=== PATIENT | female | born 1990 | race Caucasian/White ===

== ENCOUNTER 2017-03-01 14:58 | Inpatient (IN) | payer MEDICAID, OTHER ==
[2017-03-01] MEDS ORDERED: Albuterol-Ipratrop 3 mg / 0.5 (3 ml) UD ONE ×4 (15:06→21:57)
[2017-03-01 15:12] VITALS: BMI 17.9
[2017-03-01] MEDS ORDERED: Sodium Chloride 0.9% 1,000 ML IV ONE (15:24)
[2017-03-01] MEDS ORDERED: Albuterol-Ipratrop 3 mg / 0.5 (3 ml) UD INH STA ×5 (15:25→20:28)
[2017-03-01 15:39] LABS: BASO # 0.1 K/uL (0.0-0.2); BASO % 0.6 % (0.0-2.0); EOS # 1.1 K/uL (0.0-0.7); HEMATOCRIT 50.8 % (34.0-47.0); LYMPH # 1.9 K/uL (1.0-4.3); LYMPH % 19.3 % (20.0-40.0); MEAN CORPUSCULAR HGB CONC 31.1 g/dL (33.0-37.0); MEAN PLATELET VOLUME 9.4 fL (7.2-11.7); MONO # 0.9 K/uL (0.0-0.8); MONO % 9.2 % (0.0-10.0); NRBC % 0.6 % (0.0-2.0); RED CELL DISTRIBUTION WIDTH 19.4 % (11.5-14.5); WHITE BLOOD COUNT 9.6 K/uL (4.8-10.8)
[2017-03-01 15:45] LABS: CHLORIDE 91 mmol/L (98-107); MEAN CELL VOLUME 73.9 fL (81.0-99.0)
[2017-03-01 15:46] LABS: SODIUM 140 mmol/L (132-148)
[2017-03-01 15:47] LABS: POTASSIUM 4.1 mmol/L (3.6-5.2)
[2017-03-01 15:49] LABS: ALKALINE PHOSPHATASE 87 U/L (38-126); AST/SGOT 39 U/L (14-36); BILIRUBIN,TOTAL 0.9 mg/dL (0.2-1.3); BLOOD UREA NITROGEN 11 mg/dL (7-17); CARBON DIOXIDE 38 mmol/L (22-30); GFR AFRICAN-AMERICAN > 60; TOTAL PROTEIN 7.8 g/dL (6.3-8.3)
[2017-03-01 15:50] LABS: ALCOHOL SERUM < 10 mg/dl (0-10); ALT/SGPT 19 U/L (9-52); CALCIUM 8.4 mg/dl (8.6-10.4); GLUCOSE,RANDOM 92 mg/dL (65-105)
--- NOTE | 2017-03-01 16:11 | RAD ---
PROCEDURE: CHEST RADIOGRAPH, 1 VIEW HISTORY: SOB COMPARISON: Comparison made with prior chest radiograph 10/13/2016 left. FINDINGS: LUNGS: Lung morris remaining hyperinflated. Interstitial markings are increased and coarsened, somewhat more so compared to the prior exam. There are a few scattered peribronchial cuffing changes as well. . Findings may represent sequela of reactive/ inflammatory airway disease and or viral illness. Underlying interstitial infiltrates and/or fibrosis the not excluded. PLEURA: No pneumothorax or pleural fluid seen. CARDIOVASCULAR: Heart appears enlarged. OSSEOUS STRUCTURES: No significant abnormalities. VISUALIZED UPPER ABDOMEN: Normal. OTHER FINDINGS: None. IMPRESSION: Lung morris remaining hyperinflated. Interstitial markings are increased and coarsened, somewhat more so compared to the prior exam. There are a few scattered peribronchial cuffing changes as well. . Findings may represent sequela of reactive/ inflammatory airway disease and or viral illness. Underlying interstitial infiltrates and/or fibrosis the not excluded.
[2017-03-01] MEDS ORDERED: Naloxone 0.4 mg/ml Inj (Adult) IV ONE ×3 (16:41→21:46)
--- NOTE | 2017-03-01 16:43 | C.PDOC ---
History Of Present Illness The patient, a 26 y/o female, presents to the ED for evaluation of worsening shortness of breath which began around 3 days ago. Patient denies smoking but states she lives with someone who does. Patient admits to persistent IV heroin abuse, Methadone she buys off the street, and Xanax abuse. Patient has history of multiple hospitalizations and intubations for her asthma. She denies fever, chills, chest pain, cough, nausea, vomiting. Time Seen by Provider: 03/01/17 15:23 Chief Complaint (Nursing): Respiratory Distress History Per: Patient History/Exam Limitations: no limitations Onset/Duration Of Symptoms: Days (3), Worse Since Current Symptoms Are (Timing): Worse Initiating Event: Exposure To Smoke Quality: denies: "Pain" Current Respiratory Medications: See Home Med List Associated Symptoms: denies: Chest Pain, Bloody Cough, Productive Cough Additional History Per: Patient Past Medical History Reviewed: Historical Data, Nursing Documentation, Vital Signs Vital Signs: Last Vital Signs Temp 98.5 F 03/01/17 18:54 Pulse 82 03/01/17 20:00 Resp 12 03/01/17 20:23 BP 113/63 03/01/17 18:54 Pulse Ox 98 03/01/17 20:23 - Medical History PMH: Anxiety, Asthma Denies: Chronic Kidney Disease Surgical History: No Surg Hx - [facility] Procedures CONTINUOUS INVASIVE MECHANICAL VENTILATION <96 CONSEC HRS (12/16/13) DETOXIFICATION SERVICES FOR SUBSTANCE ABUSE TREATMENT (05/31/16) INSERT ENDOTRACHEAL TUBE (12/16/13) OTHER SKIN & SUBQ I D (06/14/13) TETANUS TOXOID ADMINIST (06/14/13) Family History: States: Unknown Family Hx - Social History Hx Tobacco Use: (UNKNOWN) Hx Alcohol Use: No Hx Substance Use: Yes - Immunization History Hx Tetanus Toxoid Vaccination: No Hx Influenza Vaccination: No Hx Pneumococcal Vaccination: No Review Of Systems Except As Marked, All Systems Reviewed And Found Negative. Constitutional: Negative for: Fever, Chills Cardiovascular: Negative for: Chest Pain Respiratory: Positive for: Shortness of Breath. Negative for: Cough Gastrointestinal: Negative for: Nausea, Vomiting Physical Exam - Physical Exam Appears: Non-toxic, No Acute Distress, Other (thin ) Skin: Normal Color, Warm, Dry Head: Atraumatic, Normacephalic, Other (+bitemporal wasting) Eye(s): bilateral: Normal Inspection Oral Mucosa: Moist Neck: Normal ROM, Supple Chest: Symmetrical, No Deformity, No Tenderness Cardiovascular: Rhythm Regular, No Murmur Respiratory: No Rales, No Rhonchi, Wheezing (bilateral inspiratory and expiratory ), Other (+poor air movement ) Gastrointestinal/Abdominal: Soft, No Tenderness, No Guarding, No Rebound Back: Normal Inspection, No Vertebral Tenderness, No Paraspinal Tenderness Extremity: Normal ROM, Capillary Refill (less than 2 seconds ) Neurological/Psych: Oriented x3, Normal Speech, Normal Cognition, Other (+ patient is intermittently hypersomnolent ) Gait: Steady ED Course And Treatment - Laboratory Results Result Diagrams: 03/01/17 15:31 03/01/17 15:31 Lab Interpretation: Abnormal (tox + methadone, benzo, opiates) ECG: Interpreted By Wi ECG Rhythm: Sinus Tachycardia ECG Interpretation: Abnormal Rate From EC O2 Sat by Pulse Oximetry: 100 (on RA) Pulse Ox Interpretation: Normal - Radiology CXR: Interpreted by Me CXR Interpretation: Yes: No Acute Disease Progress Note: labs, EKG, CXR ordered and reviewed. Patient received Duoneb INH , Narcan IV, Pepcid IV, Solu-Medrol IV, and IV Fluids. Reevaluation Time: 16:41 Reassessment Condition: Improved - Physician Consult Information Outcome Of Conversation: 1620: d/w Dr. Zarate- Hospitalist- ok to tele obs. Critical Care Time - Critical Care Note Total Time (in mins): 90 Documented critical care: time excludes all time spent performing seperately billable procedures. Medical Decision Making Medical Decision Making: persistent heroine abuse, IVDA, no local cellulitis with asthma exacerabtion, h/ o multiple intubations. 2000: AB.17/98/341/38/100.3% on 2LNC Bipap and narcan ordered 2230: Re-eval's with Hospitalists and ICU @ bedside.- pt recieved narcan multiple doses and persists hypersomnolent and Hypercarbic decision to upgrade to ICU. Disposition Doctor Will See Patient In The: Hospital Counseled Patient/Family Regarding: Studies Performed, Diagnosis - Disposition Disposition: HOSPITALIZED Disposition Time: 16:43 Condition: FAIR - Clinical Impression Clinical Impression: Asthma with status asthmaticus, Heroin abuse, Benzodiazepine abuse - Scribe Statement The provider has reviewed the documentation as recorded by the Scribe (Clare Young) Provider Attestation: All medical record entries made by the Scribe were at my direction and personally dictated by me. I have reviewed the chart and agree that the record accurately reflects my personal performance of the history, physical exam, medical decision making, and the department course for this patient. I have also personally directed, reviewed, and agree with the discharge instructions and disposition.
[2017-03-01] MEDS ORDERED: Albuterol-Ipratrop 3 mg / 0.5 (3 ml) UD INH PRN (18:39)
--- NOTE | 2017-03-01 18:48 | CP.PCM.HP ---
<Maryam Posadas - Last Filed: 03/01/17 21:29> History of Present Illness - History of Present Illness History of Present Illness: CC: asthma for 2 weeks HPI: 26 year old homeless female with PMHx of asthma and heroin abuse presents to ED with complaints of shortness of breath and wheezing for 2 weeks. Patient reports she ran out of her albuterol inhaler 2 weeks ago and her symptoms have been present since then but they worsened this morning and was brought in by her mother. Patient states she usually uses the albuterol inhaler 5 to 6 times/ day and Advair 4 times a day. She reported beinh short of breath and having a lot of anxiety and she complained of abdominal pain. Patient also reported a history of IV heroin use [6 to 8 bags/day] and the last time she used was the day before admission. She denied any other drug use and reported no longer smoking cigarettes. Patient also reported some RLQ abdominal pain but denied any nausea or vomiting or any bowel/bladder complaints. Patient denied any fever , chills, chest pain, palpitations, cough, back pain, easy bruising, easy bleeding, weight changes, appetite changes. Patient denied any recent travel or sick contacts. PMD: Dr. Arceo PMHx: asthma Meds: albuterol 5-6 times/day and Advair 4 times/day ALL: NKDA but allergic to shrimp PSHx: FamHx: denies history of ME, CVA, cancer in family SocHx: homeless, used to smoke 1/2 ppd from when she was 10yo to 20yo. Patient reports drinking wine "once in a [place]." Patient injects 6 to 8 bags of heroin/day. Patient reports getting money from "disability" Present on Admission - Present on Admission Any Indicators Present on Admission: No Review of Systems - Constitutional Constitutional: As Per HPI. absent: Chills, Fever - EENT Eyes: As Per HPI. absent: Change in Vision Ears: As Per HPI. absent: Dizziness Nose/Mouth/Throat: As Per HPI. absent: Sore Throat - Cardiovascular Cardiovascular: As Per HPI. absent: Chest Pain, Edema, Palpitations - Respiratory Respiratory: As Per HPI, Dyspnea on Exertion, Wheezing. absent: Cough, Chest Congestion - Gastrointestinal Gastrointestinal: As Per HPI, Abdominal Pain (R sided). absent: Constipation, Diarrhea, Nausea, Vomiting - Genitourinary Genitourinary: As Per HPI. absent: Dysuria, Hematuria, Pyuria - Musculoskeletal Musculoskeletal: As Per HPI. absent: Back Pain, Numbness, Tingling - Integumentary Integumentary: As Per HPI. absent: Dry Skin, Rash - Neurological Neurological: As Per HPI. absent: Tingling, Weakness - Psychiatric Psychiatric: As Per HPI, Anxiety - Endocrine Endocrine: As Per HPI. absent: Polydipsia, Polyuria - Hematologic/Lymphatic Hematologic: As Per HPI. absent: Easy Bleeding, Easy Bruising Past Patient History - Past Medical History & Family History Past Medical History?: Yes - Past Social History Smoking Status: Former Smoker - CARDIAC Hx Cardiac Disorders: No - PULMONARY Hx Asthma: Yes - NEUROLOGICAL Hx Neurological Disorder: No - HEENT Hx HEENT Problems: No - RENAL Hx Chronic Kidney Disease: No - ENDOCRINE/METABOLIC Hx Endocrine Disorders: No - HEMATOLOGICAL/ONCOLOGICAL Hx Blood Disorders: No - INTEGUMENTARY Hx Dermatological Problems: No - MUSCULOSKELETAL/RHEUMATOLOGICAL Hx Falls: No - GASTROINTESTINAL Hx Gastrointestinal Disorders: No - GENITOURINARY/GYNECOLOGICAL Hx Genitourinary Disorders: No - PSYCHIATRIC Hx Anxiety: Yes Hx Substance Use: Yes - SURGICAL HISTORY Hx Surgeries: Yes Hx Section: Yes (X2) - ANESTHESIA Hx Anesthesia: Yes Hx Anesthesia Reactions: No Hx Malignant Hyperthermia: No Meds Allergies/Adverse Reactions: Allergies Allergy/AdvReac Type Severity Reaction Status Date / Time shrimp Allergy Severe ITCHING Verified 10/13/16 18:35 Physical Exam - Constitutional Appears: Non-toxic, No Acute Distress, Chronically Ill - Head Exam Head Exam: NORMAL INSPECTION - Eye Exam Eye Exam: Normal appearance. absent: Conjunctival injection, Scleral icterus Pupil Exam: Miosis - ENT Exam ENT Exam: Mucous Membranes Dry - Neck Exam Neck exam: Positive for: Normal Inspection - Respiratory Exam Respiratory Exam: Rhonchi, Wheezes, NORMAL BREATHING PATTERN. absent: Accessory Muscle Use, Clear to Auscultation Bilateral, Rales, Respiratory Distress Additional comments: poor air movement - Cardiovascular Exam Cardiovascular Exam: Tachycardia, REGULAR RHYTHM, +S1, +S2. absent: Systolic Murmur - GI/Abdominal Exam GI & Abdominal Exam: Normal Bowel Sounds, Soft, Tenderness (RUQ and RLQ slight tenderness to palpation). absent: Firm, Guarding, Rigid - Extremities Exam Extremities exam: Positive for: normal inspection, pedal pulses present. Negative for: pedal edema, tenderness - Back Exam Back exam: NORMAL INSPECTION. absent: rash noted - Neurological Exam Neurological exam: Alert, Oriented x3 - Psychiatric Exam Psychiatric exam: Normal Affect, Normal Mood - Skin Skin Exam: Dry, Erythema (b/l RUE), Warm Results - Vital Signs Recent Vital Signs: Last Vital Signs Temp 99.1 F 03/01/17 15:15 Pulse 111 H 03/01/17 16:19 Resp 20 03/01/17 16:19 BP 112/73 03/01/17 16:19 Pulse Ox 100 03/01/17 18:26 - Labs Result Diagrams: 03/01/17 15:31 03/01/17 15:31 Assessment & Plan - Assessment and Plan (Free Text) Assessment: 26 yo homeless female with PMHx of asthma and heroin abuse presents to ED with complains of shortness of breath and wheezing for 2 weeks Plan: Acute asthma exacerbation f/u AM labs CXR 03/01: lung fileds remaining hyperinflated. Interstitial markings are increased and coarsened, somewhat more so compared to the prior exam. Few scattered peribronchial cuffing changes as well. Findings may represent sequela of reactive/inflammatory airway disease and or viral illness. Underlying interstitial infiltrates and/or fibrosis not excluded. Duoneb 3ml INH Q6 PRN Solumedrol 40mg IVP Q8H Singulair 10mg PO HS Heroin withdrawal Methadone 10mg PO PRN for agitation- one time f/u UDS Psych consult Dr. Lord- f/u recommendations Bilateral RUE cellulitis Zosyn 3.375gm IV Q6H Vancomycin 1gm IVPB daily Monitor area PPX Lovenox 30mg SC daily Pepcid 20mg PO BID NS @ 75cc/hr SCD Clear liquid diet Plan discussed with Dr. Jerson Posadas PGY1 <Brissa Arthur V - Last Filed: 03/03/17 13:38> Results - Vital Signs Recent Vital Signs: Last Vital Signs Temp 97.9 F 03/03/17 12:00 Pulse 91 H 03/03/17 11:02 Resp 22 03/03/17 13:04 BP 129/88 03/03/17 11:02 Pulse Ox 91 L 03/03/17 11:02 - Labs Result Diagrams: 03/02/17 06:21 04/15/17 06:21 Labs: Laboratory Results - last 24 hr 03/03/17 06:27 Vancomycin Trough 11.8 H Attending/Attestation - Attestation I have personally seen and examined this patient.: Yes I have fully participated in the care of the patient.: Yes I have reviewed all pertinent clinical information: Yes Notes (Text): This is late computer entry for 03/01/17. Patient seen, examined, and case discussed with day-time resident. Patient seen at approximately 5pm on 03/01/17. Discussed initial admitting orders with day-time resident. Patient has a history of mild-moderate asthma, requiring short acting inhaler multiple times a day and in addition has history of heroin abuse (reporting about 6-8 bags) and then discussed with ED physician that she takes about 20 bags a day of heroin. Patient has no family at bedside but reports her family knows she is her. Assessment/Plan 1) Acute asthma exacerbation * CXR 03/01: lung fileds remaining hyperinflated. Interstitial markings are increased and coarsened, somewhat more so compared to the prior exam. Few scattered peribronchial cuffing changes as well. Findings may represent sequela of reactive/inflammatory airway disease and or viral illness. Underlying interstitial infiltrates and/or fibrosis not excluded. * Duoneb 3ml INH Q6 PRN * Solumedrol 40mg IVP Q8H * Singulair 10mg PO HS * Patient is tight on exam; with associated rales and rhonchi. 2) Heroin withdrawal * Methadone 10mg PO PRN for agitation- one time * f/u UDS * Psych consult Dr. Lord- f/u recommendations; discussed with psych who are aware of consult will see in the morning 3) Bilateral RUE cellulitis * at the injection sites; very erythematous; demarcated * Zosyn 3.375gm IV Q6H (active since 03/01/17) * Vancomycin 1gm IVPB daily (active since 03/01/17) * Monitor area 4) PPX * Lovenox 30mg SC daily * Pepcid 20mg PO BID * NS @ 75cc/hr * SCD * Clear liquid diet Requested ICU evaluation given ABG result which resulted post my initial assessment of the patient of acidosis and CO2 retention. Patient appears drowsy , lethargic, unable to communicate properly due to multiple drugs in her system including heroin, xanax, and methadone change from my initial assessment. Patient went to the ICU unit for further monitoring and possible intubation given acidosis and CO2 retention.
[2017-03-01 19:53] LABS: ABG ALLEN TEST POS; DRAW SITE RRADIAL
[2017-03-01 19:55] LABS: RBC URINE 1 /hpf (0-3); URINE BACTERIA RARE (<OCC); URINE BILIRUBIN NEGATIVE (NEGATIVE); URINE BLOOD NEGATIVE (NEGATIVE); URINE COLOR Yellow (YELLOW); URINE GLUCOSE (UA) NORMAL (Normal); URINE KETONE NEGATIVE (NEGATIVE); URINE LEUKOCYTE ESTERASE TRACE Leu/uL (Negative); URINE PROTEIN NEGATIVE (NEGATIVE); WBC URINE 12 /hpf (0-5)
[2017-03-01] MEDS ORDERED: Fluticasone-Salmeterol 250-50mcg Diskus INH SCH (20:00)
[2017-03-01] MEDS ORDERED: Piperacillin/Tazobact 3.375 gm 100 ML IVPB ONE (20:47)
[2017-03-01] MEDS: Piperacill/Tazo 3.375gm in Dex 50 ML IVPB SCH (20:53)
[2017-03-01] MEDS: MethylPREDNISolone 40 mg Vial IVP SCH (21:07)
[2017-03-01] MEDS ORDERED: Naloxone 0.4 mg/ml Inj (Adult) ONE (21:59)
[2017-03-01 22:30] LABS: ABG ALLEN TEST POS; DRAW SITE RRADIAL
[2017-03-01] MEDS ORDERED: Naloxone 0.4 mg/ml Inj (Adult) IVP PRN (23:03)
--- NOTE | 2017-03-01 23:11 | CP.PCM.CON ---
History of Present Illness - History of Present Illness History of Present Illness: Patient seen and examined in ER as per request of Dr. Arthur. History obtained from the chart since the patient is not able to verbalize, but nods and follows commands. This is a 16 year old female with history of asthma, heroin, methadone and benzodiazepine abuse. She comes to the ER with sob and wheezing for 2 weeks, urine toxicology exam positive for benzodiazepines, methadone and opiates. She has lots of ronchi and wheezing on expiration, tachypneic, but nods to feel better than before and not being sob, as per ER nursing staff she looks much better. She was just taken off bpap since she "vomited one grape". ros: limitted PMH: asthma FH: not relevant for the case social: homeless multiple drug abuse smoked 1/2 pack from [age] years old Allergic to shrimp pe: bp 113/83 mmhg, hr 93 bpm, rr 26 bpm, T 97.9, O2 100% on 3 L NC thin young female looks in mild respiratory distress alert, awake, aware of surroundings, follows commands s1, s2 rrr lungs bilateral diffuse loud ronchi and wheeze abomen soft, non tender able to move all extremities right forearm with area of redness and warmth, also in posterior aspect of left hand - marked unable to write or word out secondary to be under the influence of drugs a/p: Asthma exacerbation: IV steroids, nebulizations, oxygen Respiratory failure due to asthma exacerbation bpap prn CO2 narcosis: secondary to drug abuse, monitor closely in ICU, narcan prn Cellulitis: at the site of IV injection, on vancomycin and zosyn, adjusted for renal function Drug abuse: give xanax daily, start tomorrow to avoid seizure withdrawal, 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 Past Patient History - Past Medical History & Family History Past Medical History?: Yes - Past Social History Smoking Status: Former Smoker - CARDIAC Hx Cardiac Disorders: No - PULMONARY Hx Asthma: Yes - NEUROLOGICAL Hx Neurological Disorder: No - HEENT Hx HEENT Problems: No - RENAL Hx Chronic Kidney Disease: No - ENDOCRINE/METABOLIC Hx Endocrine Disorders: No - HEMATOLOGICAL/ONCOLOGICAL Hx Blood Disorders: No - INTEGUMENTARY Hx Dermatological Problems: No - MUSCULOSKELETAL/RHEUMATOLOGICAL Hx Falls: No - GASTROINTESTINAL Hx Gastrointestinal Disorders: No - GENITOURINARY/GYNECOLOGICAL Hx Genitourinary Disorders: No - PSYCHIATRIC Hx Anxiety: Yes Hx Substance Use: Yes - SURGICAL HISTORY Hx Surgeries: Yes Hx Section: Yes (X2) - ANESTHESIA Hx Anesthesia: Yes Hx Anesthesia Reactions: No Hx Malignant Hyperthermia: No Meds Allergies/Adverse Reactions: Allergies Allergy/AdvReac Type Severity Reaction Status Date / Time shrimp Allergy Severe ITCHING Verified 10/13/16 18:35 - Medications Medications: Current Medications Albuterol/Ipratropium (Duoneb 3 Mg/0.5 Mg (3 Ml) Ud) 3 ml INH RQ6 [facility] Enoxaparin Sodium (Lovenox) 40 mg SC DAILY [facility] Famotidine (Pepcid) 20 mg PO BID [facility] Sodium Chloride (Sodium Chloride 0.9%) 1,000 mls @ 75 mls/hr IV .[id number] [facility] Piperacillin Sod/Tazobactam Sod (Zosyn 3.375 Gm Iv Premix) 50 mls @ 100 mls/hr IVPB Q6H [facility] Last Admin: 03/01/17 20:53 Dose: 100 mls/hr Vancomycin HCl 1 gm/ Sodium (Chloride) 250 mls @ 166.7 mls/hr IVPB Q24H [facility] Last Admin: 03/01/17 21:06 Dose: 166.7 mls/hr Methylprednisolone (Solu-Medrol) 40 mg IVP Q8H [facility] Last Admin: 03/01/17 21:07 Dose: 40 mg Montelukast Sodium (Singulair) 10 mg PO HS [facility] Naloxone HCl (Narcan) 0.4 mg IVP Q15M PRN PRN Reason: Other Results - Vital Signs Recent Vital Signs: Last Vital Signs Temp 98.5 F 03/01/17 18:54 Pulse 82 03/01/17 20:00 Resp 12 03/01/17 20:23 BP 113/63 03/01/17 18:54 Pulse Ox 98 03/01/17 20:23 - Labs Result Diagrams: 03/01/17 15:31 03/01/17 15:31 Labs: Laboratory Results - last 24 hr 03/01/17 03/01/17 03/01/17 19:38 19:39 22:25 Puncture Site Rradial Rradial pCO2 98 H* 62 H pO2 341 H 62 L HCO3 28.0 28.5 H ABG pH 7.17 L* 7.33 L ABG Total CO2 38.7 H 34.6 H ABG O2 Saturation 100.3 H 92.6 L ABG Base Excess 3.8 H 4.9 H Clive Test Pos Pos ABG Potassium 3.8 3.7 A-a O2 Difference 250.0 60.0 Respiratory Index 0.7 1.0 Sodium 139.0 138.0 Chloride 105.0 104.0 Glucose 143 H 114 H Lactate 1.2 1.8 FiO2 100.0 28.0 Crit Value Called To Dr. martin Crit Value Called By Quynh harman rcp Crit Value Read Back Y Blood Gas Notified Time 1952 Arterial Blood Potassium 3.8 3.7 Urine Color Yellow Urine Clarity Hazy Urine pH 6.0 Ur Specific [place] 1.017 Urine Protein Negative Urine Glucose (UA) Normal Urine Ketones Negative Urine Blood Negative Urine Nitrate Negative Urine Bilirubin Negative Urine Urobilinogen 2.0 H Ur Leukocyte Esterase Trace Urine WBC (Auto) 12 H Urine RBC (Auto) 1 Ur Squamous Epith Cells 4 Urine Bacteria Rare Urine HCG, Qual Negative Urine Opiates Screen Positive Urine Methadone Screen Positive Ur Barbiturates Screen Negative Ur Phencyclidine Scrn Negative Ur Amphetamines Screen Negative U Benzodiazepines Scrn Positive U Oth Cocaine Metabols Negative U Cannabinoids Screen Negative
[2017-03-02] MEDS: Sodium Chloride 0.9% 1,000 ML IV SCH ×2 (00:15→13:39)
[2017-03-02] MEDS: Piperacill/Tazo 3.375gm in Dex 50 ML IVPB SCH ×4 (01:20→18:12)
[2017-03-02] MEDS: Naloxone 0.4 mg/ml Inj (Adult) IVP PRN ×3 (01:25→06:00)
[2017-03-02] MEDS: Albuterol-Ipratrop 3 mg / 0.5 (3 ml) UD INH SCH ×4 (01:27→19:47)
[2017-03-02] MEDS: MethylPREDNISolone 40 mg Vial IVP SCH ×3 (03:35→18:12)
[2017-03-02 04:35] LABS: ABG ALLEN TEST POS; CARBOXYHEMOGLOBIN 2.1 % (0.5-1.5); DRAW SITE RR; HHB 2.9 % (0.0-5.0)
[2017-03-02 06:33] LABS: BASO % 0.2 % (0.0-2.0); LYMPH # 0.5 K/uL (1.0-4.3); LYMPH % 9.3 % (20.0-40.0); MEAN CELL VOLUME 74.3 fL (81.0-99.0); MEAN CORPUSCULAR HEMOGLOBIN 23.5 pg (27.0-31.0); MEAN CORPUSCULAR HGB CONC 31.6 g/dL (33.0-37.0); MEAN PLATELET VOLUME 9.3 fL (7.2-11.7); MONO # 0.1 K/uL (0.0-0.8); MONO % 2.4 % (0.0-10.0); NRBC % 0.1 % (0.0-2.0); PLATELET COUNT 212 K/uL (130-400); RED CELL DISTRIBUTION WIDTH 19.7 % (11.5-14.5); WHITE BLOOD COUNT 4.9 K/uL (4.8-10.8)
[2017-03-02 06:40] LABS: CHLORIDE 97 mmol/L (98-107); SODIUM 139 mmol/L (132-148)
[2017-03-02 06:41] LABS: IRON 36 ug/dL (37-170)
[2017-03-02 06:42] LABS: ALB/GLOB RATIO 0.8 (1.0-2.1); ALKALINE PHOSPHATASE 82 U/L (38-126); AST/SGOT 40 U/L (14-36); BILIRUBIN,TOTAL 1.1 mg/dL (0.2-1.3); CARBON DIOXIDE 35 mmol/L (22-30); GFR AFRICAN-AMERICAN > 60; TOTAL PROTEIN 6.9 g/dL (6.3-8.3)
[2017-03-02 06:43] LABS: ALT/SGPT 24 U/L (9-52); BLOOD UREA NITROGEN 7 mg/dL (7-17); CALCIUM 7.8 mg/dl (8.6-10.4); GLUCOSE,RANDOM 91 mg/dL (65-105); MAGNESIUM 2.1 mg/dL (1.6-2.3); PHOSPHOROUS 4.3 mg/dL (2.5-4.5)
[2017-03-02 07:48] LABS: FOLATE 18.6 ng/mL
[2017-03-02] MEDS: Albuterol 0.083% Inhal Sol (2.5 mg/3 mL) UD INH SCH ×4 (08:40→17:00)
[2017-03-02 08:43] LABS: NEUTROPHIL 87 % (50-75); TOTAL CELLS COUNTED 100
[2017-03-02 08:45] LABS: GIANT PLATELETS PRESENT; LARGE PLATELETS PRESENT
[2017-03-02] MEDS ORDERED: Vancomycin 750mg/D5W 150 ml 150 ML IV SCH (09:00)
[2017-03-02] MEDS: Enoxaparin 40 mg Syringe SC SCH (09:40)
[2017-03-02] MEDS ORDERED: Enoxaparin 30 mg Syringe SC SCH (10:00)
--- NOTE | 2017-03-02 10:32 | RAD ---
HISTORY: asthma exacerbation COMPARISON: Chest x-ray performed 03/01/17 TECHNIQUE: Chest, one view. FINDINGS: LUNGS: Coarsened interstitial markings. Hyperinflation. Please note that chest x-ray has limited sensitivity for the detection of pulmonary masses. PLEURA: No significant pleural effusion identified. No definite pneumothorax . CARDIOVASCULAR: Borderline cardiomegaly. OSSEOUS STRUCTURES: No acute osseous abnormality identified. VISUALIZED UPPER ABDOMEN: Elevation of the right hemidiaphragm. OTHER FINDINGS: None. IMPRESSION: Coarsened interstitial markings. Hyperinflation.
--- NOTE | 2017-03-02 13:04 | PCM.PSYCH ---
Initial Psychiatric Evaluation - Initial Psychiatric Evaluation Type of Admission: Voluntary Legal Status: Capacity Chief Complaint (in patient's own words): "I'm withdrawing" History of Present Illness and Precipitating Events: The patient is seen, chart reviewed and case discussed. Consultation was requested for patient's opiate use. She is known to the commercial underwriter from a recent detox admission in our hospital. This is a 26-year-old female, single with 2 children who are with their father. She is homeless and unemployed. The patient reports that she relapsed few weeks ago and was using 20 bags of heroin intravenously. She also takes Xanax 2 mg a day and denies other drugs. After discharge from our unit, she was supposed to go to [facility]. She says she attended but dropped out quickly. Now she wants to go back when she is better. Yesterday, she accidentally overdosed in her hotel room and found by her mother who took her to ER. It's not clear if she called 911 or she drove her. In ER she was given Narcan and admitted to the hospital. She also has severe asthma and had been hospitalized previously because of extreme shortness of breath. The patient admits to feeling somewhat depressed and very anxious. However, she is also in withdrawal. She asks for methadone and reports nausea, vomiting, gastric pain, joint pain and loose bowel movements. She had lacrimation, sniffing and some piloerection. Past psych history: Anxiety and depression. She was in detox once only. Family psych history: Denies Medical history: Asthma. She admits to be known compliant with medications. Current Medications: Active Medications Generic Name Dose Route Start Last Admin Trade Name Lauren PRN Reason Stop Dose Admin Albuterol Sulfate 2.5 mg 03/02/17 08:00 03/02/17 11:25 Albuterol 0.083% Inhal Jenny (2.5 Mg/3 Ml) Ud INH 2.5 mg RQ2 ANDERSON Administration Albuterol/Ipratropium 3 ml 03/02/17 02:00 03/02/17 08:34 Duoneb 3 Mg/0.5 Mg (3 Ml) Ud INH 3 ml RQ6 ANDERSON Administration Enoxaparin Sodium 40 mg 03/02/17 10:00 03/02/17 09:40 Lovenox SC 40 mg DAILY ANDERSON Administration Famotidine 20 mg 03/02/17 10:00 03/02/17 09:40 Pepcid PO 20 mg BID ANDERSON Administration Sodium Chloride 1,000 mls @ 75 mls/hr 03/01/17 18:45 03/02/17 00:15 Sodium Chloride 0.9% IV 75 mls/hr .[id number] ANDERSON Administration Piperacillin Sod/Tazobactam Sod 50 mls @ 100 mls/hr 03/01/17 18:45 03/02/17 06: 05 Zosyn 3.375 Gm Iv Premix IVPB 100 mls/hr Q6H ANDERSON Administration Vancomycin HCl 750 mg/ Sodium 250 mls @ 133 mls/hr 03/02/17 09:45 03/02/17 09: 56 Chloride IVPB 03/07/17 09:01 133 mls/hr Q12H ANDERSON Administration Methadone HCl 20 mg 03/02/17 11:00 03/02/17 11:11 Methadone PO 03/06/17 10:59 20 mg Q24H ANDERSON Administration Taper Methylprednisolone 40 mg 03/01/17 19:00 03/02/17 03:35 Solu-Medrol IVP 40 mg Q8H ANDERSON Administration Montelukast Sodium 10 mg 03/01/17 22:00 03/02/17 00:10 Singulair PO 10 mg HS ANDERSON Administration Naloxone HCl 0.4 mg 03/02/17 01:06 03/02/17 06:00 Narcan IVP 0.4 mg Q20M PRN Administration Other Ondansetron HCl 4 mg 03/02/17 06:45 03/02/17 06:50 Zofran Inj IVP 03/04/17 00:46 4 mg Q6H ANDERSON Administration Past Psychiatric History - Past Psychiatric History Previous Treatment History: None Pertinent Medical Hx (Current Medical&Sleep Prob, Allergies): Allergies Allergy/AdvReac Type Severity Reaction Status Date / Time shrimp Allergy Severe ITCHING Verified 10/13/16 18:35 traZODone [Desyrel] 50 mg PO HS #30 tab 10/19/16 ALPRAZolam [Xanax] 1 mg PO DAILY 03/02/17 Albuterol/Ipratropium [Combivent Respimat] 1 puff IH QID 03/02/17 Fluticasone/Salmeterol 250/50 [Advair Diskus 250/50] 2 puсергей INH QID 03/02/17 Review of Systems - Neurological Neurological: Tremor - Psychiatric Psychiatric: Abnormal Sleep Pattern, Anxiety, Depression, Difficulty Concentrating, Irritability. absent: Hallucinations, Homicidal Ideation, Hopelessness, Paranoia, Suicidal Ideation Mental Status Examination - Personal Presentation Personal Presentation: Looks older than stated age (Disheveled) - Affect Affect: Constricted - Motor Activity Motor Activity: Calm - Reliability in Providing Information Reliability in Providing Information: Fair - Speech Speech: Organized - Mood Mood: Anxious - Formal Thought Process Formal Thought Process: No Impairment - Cognitive Functions Orientation: Person, Place, Situation, Time Sensorium: Alert Attention/Concentration: Easily distracted Abstract Thinking: [place] Estimate of Intelligence: Below average Judgement: Imparied, as evidence by: Poor judgement, Intact, as evidence by: Insight regarding need for hospitalization Memory: Recent intact, as evidence by: Ability to recall events of the day, Remote intact, as evidenced by: Abilit to recall sig. life events - Risk Risk: Withdrawal, Diminished functioning - Strength & Assets Inventory Strength & Assets Inventory: Family support, Cooperative - Limitations Limitations: Living alone DSM 5 DX - DSM 5 DSM 5 Diagnosis: Opioid withdrawal Opioid use disorder, severe Sedative hypnotic use disorder, moderate Anxiety disorder unspecified - Recommended/Plan of Treatment Treatment Recommendations and Plan of Treatment: Methadone taper, if medically okay Monitor breathing As needed medications Support and psychoeducation Refer to methadone maintenance program or IOP 33 min
--- NOTE | 2017-03-02 15:12 | CP.CCUPN ---
CCU Subjective - Physician Review Events Since Last Encounter (Free Text): 03/02/17 15:11 Patient is more awake now, seen by psychiatry. 03/02/17 15:14 CCU Objective - Vital Signs / Intake & Output Vital Signs (Last 4 hours): Vital Signs Temp Pulse Resp BP Pulse Ox 03/02/17 13:02 82 16 124/90 98 03/02/17 13:00 69 15 97 03/02/17 12:02 79 22 122/87 96 03/02/17 12:00 98.4 F 87 23 122/87 95 Intake and Output (Last 8hrs): Intake & Output 03/02/17 03/02/17 03/02/17 06:59 14:59 22:59 Intake Total 475 550 Output Total 400 200 Balance 75 350 Weight 95 lb Intake: Intake, IV Amount 475 550 Left Upper arm 475 550 Output: Urine 200 Urine, Voided 200 Urine/Stool Mix 400 Other: Voiding Method Bedpan # Bowel Movements 1 - Physical Exam Head: Positive for: Atraumatic, Normocephalic Pupils: Positive for: PERRL Extroacular Muscles: Positive for: EOMI Mouth: Positive for: Moist Mucous Membranes Respiratory/Chest: Positive for: Clear to Auscultation, Good Air Exchange Cardiovascular: Positive for: Regular Rate and Rhythm Abdomen: Positive for: Normal Bowel Sounds. Negative for: Tenderness, Distention Neurological: Positive for: CN II-XII Intact, Speech Normal Skin: Positive for: Warm Psychiatric: Positive for: Alert, Oriented x 3, Normal Insight, Normal Concentration - Medications Active Medications: Active Medications Generic Name Dose Route Start Last Admin Trade Name Lauren PRN Reason Stop Dose Admin Albuterol Sulfate 2.5 mg 03/02/17 08:00 03/02/17 13:50 Albuterol 0.083% Inhal Jenny (2.5 Mg/3 Ml) Ud INH 2.5 mg RQ2 ANDERSON Administration Albuterol/Ipratropium 3 ml 03/02/17 02:00 03/02/17 13:50 Duoneb 3 Mg/0.5 Mg (3 Ml) Ud INH 3 ml RQ6 ANDERSON Administration Enoxaparin Sodium 40 mg 03/02/17 10:00 03/02/17 09:40 Lovenox SC 40 mg DAILY ANDERSON Administration Famotidine 20 mg 03/02/17 10:00 03/02/17 09:40 Pepcid PO 20 mg BID ANDERSON Administration Sodium Chloride 1,000 mls @ 75 mls/hr 03/01/17 18:45 03/02/17 13:39 Sodium Chloride 0.9% IV 75 mls/hr .[id number] ANDERSON Administration Piperacillin Sod/Tazobactam Sod 50 mls @ 100 mls/hr 03/01/17 18:45 03/02/17 13: 40 Zosyn 3.375 Gm Iv Premix IVPB 100 mls/hr Q6H ANDERSON Administration Vancomycin HCl 750 mg/ Sodium 250 mls @ 133 mls/hr 03/02/17 09:45 03/02/17 09: 56 Chloride IVPB 03/07/17 09:01 133 mls/hr Q12H ANDERSON Administration Methadone HCl 20 mg 03/02/17 11:00 03/02/17 11:11 Methadone PO 03/06/17 10:59 20 mg Q24H ANDERSON Administration Taper Methylprednisolone 40 mg 03/01/17 19:00 03/02/17 13:39 Solu-Medrol IVP 40 mg Q8H ANDERSON Administration Montelukast Sodium 10 mg 03/01/17 22:00 03/02/17 00:10 Singulair PO 10 mg HS ANDERSON Administration Naloxone HCl 0.4 mg 03/02/17 01:06 03/02/17 06:00 Narcan IVP 0.4 mg Q20M PRN Administration Other Ondansetron HCl 4 mg 03/02/17 06:45 03/02/17 13:41 Zofran Inj IVP 03/04/17 00:46 4 mg Q6H ANDERSON Administration - Patient Studies Lab Studies: Lab Studies 03/02/17 03/02/17 03/01/17 Range/Units 06:21 04:20 22:25 WBC 4.9 (4.8-10.8) K/uL RBC 6.46 H (3.80-5.20) Mil/uL Hgb 15.1 (11.0-16.0) g/dL Hct 48.0 H (34.0-47.0) % MCV 74.3 L (81.0-99.0) fL MCH 23.5 L (27.0-31.0) pg MCHC 31.6 L (33.0-37.0) g/dL RDW 19.7 H (11.5-14.5) % Plt Count 212 (130-400) K/uL MPV 9.3 (7.2-11.7) fL Neut % (Auto) 88.1 H (50.0-75.0) % Lymph % (Auto) 9.3 L (20.0-40.0) % Upson % (Auto) 2.4 (0.0-10.0) % Eos % (Auto) 0.0 (0.0-4.0) % Baso % (Auto) 0.2 (0.0-2.0) % Neut # 4.3 (1.8-7.0) K/uL Lymph # 0.5 L (1.0-4.3) K/uL Upson # 0.1 (0.0-0.8) K/uL Eos # 0.0 (0.0-0.7) K/uL Baso # 0.0 (0.0-0.2) K/uL Neutrophils % (Manual) 87 H (50-75) % Band Neutrophils % 2 (0-2) % Lymphocytes % (Manual) 9 L (20-40) % Monocytes % (Manual) 2 (0-10) % Toxic Granulation Present Platelet Estimate Normal (NORMAL) Large Platelets Present Giant Platelets Present Polychromasia Slight Hypochromasia (manual) Slight Anisocytosis (manual) Slight Microcytosis (manual) Slight Retic Count 1.9 H (0.5-1.5) % Puncture Site Rr Rradial pCO2 71 H* 62 H (35-45) mm/Hg pO2 81 62 L (80-100) mm/Hg HCO3 31.4 H 28.5 H (21-28) mmol/L ABG pH 7.33 L 7.33 L (7.35-7.45) ABG Total CO2 39.6 H 34.6 H (22-28) mmol/L ABG O2 Saturation 97.0 92.6 L (95-98) % ABG Base Excess 8.4 H 4.9 H (-2.0-3.0) mmol/L ABG Hemoglobin 14.8 (11.7-17.4) g/dL ABG Carboxyhemoglobin 2.1 H (0.5-1.5) % POC ABG HHb (Measured) 2.9 (0.0-5.0) % ABG Methemoglobin 1.0 (0.0-3.0) % Clive Test Pos Pos ABG Potassium 3.7 (3.6-5.2) mmol/L A-a O2 Difference 258.0 60.0 mm/Hg Respiratory Index 3.2 1.0 Hgb O2 Saturation 94.0 L (95.0-98.0) % Glucose 114 H (65-105) mg/dl Lactate 1.8 (0.7-2.1) mmol/L FiO2 60.0 28.0 % Inspiratory BiPAP 10 Expiratory BiPAP 5 Crit Value Called To Shari castano/erisa attorney Crit Value Called By José de anda/rt Crit Value Read Back Y Blood Gas Notified Time 440 Sodium 139 138.0 (132-148) mmol/L Potassium 5.0 (3.6-5.2) mmol/L Chloride 97 L 104.0 (98-107) mmol/L Carbon Dioxide 35 H (22-30) mmol/L Anion Gap 12 (10-20) BUN 7 (7-17) mg/dL Creatinine 0.5 L (0.7-1.2) MG/DL Est GFR ( Amer) > 60 Est GFR (Non-Af Amer) > 60 Random Glucose 91 (65-105) mg/dL Calcium 7.8 L (8.6-10.4) mg/dl Phosphorus 4.3 (2.5-4.5) mg/dL Magnesium 2.1 (1.6-2.3) mg/dL Iron 36 L (37-170) ug/dL TIBC 315 (250-450) ug/dL % Saturation 11 L (20-55) Transferrin 244.07 (206-381) mg/dL Ferritin 12.8 ng/mL Total Bilirubin 1.1 (0.2-1.3) mg/dL AST 40 H (14-36) U/L ALT 24 (9-52) U/L Alkaline Phosphatase 82 (38-126) U/L Total Protein 6.9 (6.3-8.3) g/dL Albumin 3.1 L (3.5-5.0) g/dL Globulin 3.7 (2.2-3.9) gm/dL Albumin/Globulin Ratio 0.8 L (1.0-2.1) Vitamin B12 887 (239-931) pg/mL Folate 18.6 ng/mL Arterial Blood Potassium 3.7 (3.6-5.2) mmol/L Urine Color (YELLOW) Urine Clarity (Clear) Urine pH (5.0-8.0) Ur Specific Ponce (1.003-1.030) Urine Protein (NEGATIVE) mg/dL Urine Glucose (UA) (Normal) mg/dL Urine Ketones (NEGATIVE) mg/dL Urine Blood (NEGATIVE) Urine Nitrate (NEGATIVE) Urine Bilirubin (NEGATIVE) Urine Urobilinogen (0.2-1.0) mg/dL Ur Leukocyte Esterase (Negative) Yamila/uL Urine WBC (Auto) (0-5) /hpf Urine RBC (Auto) (0-3) /hpf Ur Squamous Epith Cells (0-5) /hpf Urine Bacteria (<OCC) Urine HCG, Qual (NEGATIVE) Urine Opiates Screen (NEGATIVE) Urine Methadone Screen (NEGATIVE) Ur Barbiturates Screen (NEGATIVE) Ur Phencyclidine Scrn (NEGATIVE) Ur Amphetamines Screen (NEGATIVE) U Benzodiazepines Scrn (NEGATIVE) U Oth Cocaine Metabols (NEGATIVE) U Cannabinoids Screen (NEGATIVE) Hepatitis A IgM Ab Negative (NEGATIVE) Hep Bs Antigen Negative (NEGATIVE) Hep B Core IgM Ab Negative (NEGATIVE) Hepatitis C Antibody Negative (NEGATIVE) HIV 1&2 Antibody Screen Negative (NEGATIVE) 03/01/17 03/01/17 Range/Units 19:39 19:38 WBC (4.8-10.8) K/uL RBC (3.80-5.20) Mil/uL Hgb (11.0-16.0) g/dL Hct (34.0-47.0) % MCV (81.0-99.0) fL MCH (27.0-31.0) pg MCHC (33.0-37.0) g/dL RDW (11.5-14.5) % Plt Count (130-400) K/uL MPV (7.2-11.7) fL Neut % (Auto) (50.0-75.0) % Lymph % (Auto) (20.0-40.0) % Upson % (Auto) (0.0-10.0) % Eos % (Auto) (0.0-4.0) % Baso % (Auto) (0.0-2.0) % Neut # (1.8-7.0) K/uL Lymph # (1.0-4.3) K/uL Upson # (0.0-0.8) K/uL Eos # (0.0-0.7) K/uL Baso # (0.0-0.2) K/uL Neutrophils % (Manual) (50-75) % Band Neutrophils % (0-2) % Lymphocytes % (Manual) (20-40) % Monocytes % (Manual) (0-10) % Toxic Granulation Platelet Estimate (NORMAL) Large Platelets Giant Platelets Polychromasia Hypochromasia (manual) Anisocytosis (manual) Microcytosis (manual) Retic Count (0.5-1.5) % Puncture Site Rradial pCO2 98 H* (35-45) mm/Hg pO2 341 H (80-100) mm/Hg HCO3 28.0 (21-28) mmol/L ABG pH 7.17 L* (7.35-7.45) ABG Total CO2 38.7 H (22-28) mmol/L ABG O2 Saturation 100.3 H (95-98) % ABG Base Excess 3.8 H (-2.0-3.0) mmol/L ABG Hemoglobin (11.7-17.4) g/dL ABG Carboxyhemoglobin (0.5-1.5) % POC ABG HHb (Measured) (0.0-5.0) % ABG Methemoglobin (0.0-3.0) % Clive Test Pos ABG Potassium 3.8 (3.6-5.2) mmol/L A-a O2 Difference 250.0 mm/Hg Respiratory Index 0.7 Hgb O2 Saturation (95.0-98.0) % Glucose 143 H (65-105) mg/dl Lactate 1.2 (0.7-2.1) mmol/L FiO2 100.0 % Inspiratory BiPAP Expiratory BiPAP Crit Value Called To Dr. martin Crit Value Called By Quynh harman rcp Crit Value Read Back Y Blood Gas Notified Time 1952 Sodium 139.0 (132-148) mmol/L Potassium (3.6-5.2) mmol/L Chloride 105.0 (98-107) mmol/L Carbon Dioxide (22-30) mmol/L Anion Gap (10-20) BUN (7-17) mg/dL Creatinine (0.7-1.2) MG/DL Est GFR ( Amer) Est GFR (Non-Af Amer) Random Glucose (65-105) mg/dL Calcium (8.6-10.4) mg/dl Phosphorus (2.5-4.5) mg/dL Magnesium (1.6-2.3) mg/dL Iron (37-170) ug/dL TIBC (250-450) ug/dL % Saturation (20-55) Transferrin (206-381) mg/dL Ferritin ng/mL Total Bilirubin (0.2-1.3) mg/dL AST (14-36) U/L ALT (9-52) U/L Alkaline Phosphatase (38-126) U/L Total Protein (6.3-8.3) g/dL Albumin (3.5-5.0) g/dL Globulin (2.2-3.9) gm/dL Albumin/Globulin Ratio (1.0-2.1) Vitamin B12 (239-931) pg/mL Folate ng/mL Arterial Blood Potassium 3.8 (3.6-5.2) mmol/L Urine Color Yellow (YELLOW) Urine Clarity Hazy (Clear) Urine pH 6.0 (5.0-8.0) Ur Specific Ponce 1.017 (1.003-1.030) Urine Protein Negative (NEGATIVE) mg/dL Urine Glucose (UA) Normal (Normal) mg/dL Urine Ketones Negative (NEGATIVE) mg/dL Urine Blood Negative (NEGATIVE) Urine Nitrate Negative (NEGATIVE) Urine Bilirubin Negative (NEGATIVE) Urine Urobilinogen 2.0 H (0.2-1.0) mg/dL Ur Leukocyte Esterase Trace (Negative) Yamila/uL Urine WBC (Auto) 12 H (0-5) /hpf Urine RBC (Auto) 1 (0-3) /hpf Ur Squamous Epith Cells 4 (0-5) /hpf Urine Bacteria Rare (<OCC) Urine HCG, Qual Negative (NEGATIVE) Urine Opiates Screen Positive (NEGATIVE) Urine Methadone Screen Positive (NEGATIVE) Ur Barbiturates Screen Negative (NEGATIVE) Ur Phencyclidine Scrn Negative (NEGATIVE) Ur Amphetamines Screen Negative (NEGATIVE) U Benzodiazepines Scrn Positive (NEGATIVE) U Oth Cocaine Metabols Negative (NEGATIVE) U Cannabinoids Screen Negative (NEGATIVE) Hepatitis A IgM Ab (NEGATIVE) Hep Bs Antigen (NEGATIVE) Hep B Core IgM Ab (NEGATIVE) Hepatitis C Antibody (NEGATIVE) HIV 1&2 Antibody Screen (NEGATIVE) Laboratory Results - last 24 hr 03/01/17 03/01/17 03/01/17 19:38 19:39 22:25 WBC RBC Hgb Hct MCV MCH MCHC RDW Plt Count MPV Neut % (Auto) Lymph % (Auto) Upson % (Auto) Eos % (Auto) Baso % (Auto) Neut # Lymph # Upson # Eos # Baso # Neutrophils % (Manual) Band Neutrophils % Lymphocytes % (Manual) Monocytes % (Manual) Toxic Granulation Platelet Estimate Large Platelets Giant Platelets Polychromasia Hypochromasia (manual) Anisocytosis (manual) Microcytosis (manual) Retic Count Puncture Site Rradial Rradial pCO2 98 H* 62 H pO2 341 H 62 L HCO3 28.0 28.5 H ABG pH 7.17 L* 7.33 L ABG Total CO2 38.7 H 34.6 H ABG O2 Saturation 100.3 H 92.6 L ABG Base Excess 3.8 H 4.9 H ABG Hemoglobin ABG Carboxyhemoglobin POC ABG HHb (Measured) ABG Methemoglobin Clive Test Pos Pos ABG Potassium 3.8 3.7 A-a O2 Difference 250.0 60.0 Respiratory Index 0.7 1.0 Hgb O2 Saturation Sodium 139.0 138.0 Chloride 105.0 104.0 Glucose 143 H 114 H Lactate 1.2 1.8 FiO2 100.0 28.0 Inspiratory BiPAP Expiratory BiPAP Crit Value Called To Dr. martin Crit Value Called By Quynh harman rcp Crit Value Read Back Y Blood Gas Notified Time 1952 Potassium Carbon Dioxide Anion Gap BUN Creatinine Est GFR ( Amer) Est GFR (Non-Af Amer) Random Glucose Calcium Phosphorus Magnesium Iron TIBC % Saturation Transferrin Ferritin Total Bilirubin AST ALT Alkaline Phosphatase Total Protein Albumin Globulin Albumin/Globulin Ratio Vitamin B12 Folate Arterial Blood Potassium 3.8 3.7 Urine Color Yellow Urine Clarity Hazy Urine pH 6.0 Ur Specific Ponce 1.017 Urine Protein Negative Urine Glucose (UA) Normal Urine Ketones Negative Urine Blood Negative Urine Nitrate Negative Urine Bilirubin Negative Urine Urobilinogen 2.0 H Ur Leukocyte Esterase Trace Urine WBC (Auto) 12 H Urine RBC (Auto) 1 Ur Squamous Epith Cells 4 Urine Bacteria Rare Urine HCG, Qual Negative Urine Opiates Screen Positive Urine Methadone Screen Positive Ur Barbiturates Screen Negative Ur Phencyclidine Scrn Negative Ur Amphetamines Screen Negative U Benzodiazepines Scrn Positive U Oth Cocaine Metabols Negative U Cannabinoids Screen Negative Hepatitis A IgM Ab Hep Bs Antigen Hep B Core IgM Ab Hepatitis C Antibody HIV 1&2 Antibody Screen 03/02/17 03/02/17 04:20 06:21 WBC 4.9 RBC 6.46 H Hgb 15.1 Hct 48.0 H MCV 74.3 L MCH 23.5 L MCHC 31.6 L RDW 19.7 H Plt Count 212 MPV 9.3 Neut % (Auto) 88.1 H Lymph % (Auto) 9.3 L Upson % (Auto) 2.4 Eos % (Auto) 0.0 Baso % (Auto) 0.2 Neut # 4.3 Lymph # 0.5 L Upson # 0.1 Eos # 0.0 Baso # 0.0 Neutrophils % (Manual) 87 H Band Neutrophils % 2 Lymphocytes % (Manual) 9 L Monocytes % (Manual) 2 Toxic Granulation Present Platelet Estimate Normal Large Platelets Present Giant Platelets Present Polychromasia Slight Hypochromasia (manual) Slight Anisocytosis (manual) Slight Microcytosis (manual) Slight Retic Count 1.9 H Puncture Site Rr pCO2 71 H* pO2 81 HCO3 31.4 H ABG pH 7.33 L ABG Total CO2 39.6 H ABG O2 Saturation 97.0 ABG Base Excess 8.4 H ABG Hemoglobin 14.8 ABG Carboxyhemoglobin 2.1 H POC ABG HHb (Measured) 2.9 ABG Methemoglobin 1.0 Clive Test Pos ABG Potassium A-a O2 Difference 258.0 Respiratory Index 3.2 Hgb O2 Saturation 94.0 L Sodium 139 Chloride 97 L Glucose Lactate FiO2 60.0 Inspiratory BiPAP 10 Expiratory BiPAP 5 Crit Value Called To Shari castano/erisa attorney Crit Value Called By José de anda/rt Crit Value Read Back Y Blood Gas Notified Time 440 Potassium 5.0 Carbon Dioxide 35 H Anion Gap 12 BUN 7 Creatinine 0.5 L Est GFR ( Amer) > 60 Est GFR (Non-Af Amer) > 60 Random Glucose 91 Calcium 7.8 L Phosphorus 4.3 Magnesium 2.1 Iron 36 L TIBC 315 % Saturation 11 L Transferrin 244.07 Ferritin 12.8 Total Bilirubin 1.1 AST 40 H ALT 24 Alkaline Phosphatase 82 Total Protein 6.9 Albumin 3.1 L Globulin 3.7 Albumin/Globulin Ratio 0.8 L Vitamin B12 887 Folate 18.6 Arterial Blood Potassium Urine Color Urine Clarity Urine pH Ur Specific Ponce Urine Protein Urine Glucose (UA) Urine Ketones Urine Blood Urine Nitrate Urine Bilirubin Urine Urobilinogen Ur Leukocyte Esterase Urine WBC (Auto) Urine RBC (Auto) Ur Squamous Epith Cells Urine Bacteria Urine HCG, Qual Urine Opiates Screen Urine Methadone Screen Ur Barbiturates Screen Ur Phencyclidine Scrn Ur Amphetamines Screen U Benzodiazepines Scrn U Oth Cocaine Metabols U Cannabinoids Screen Hepatitis A IgM Ab Negative Hep Bs Antigen Negative Hep B Core IgM Ab Negative Hepatitis C Antibody Negative HIV 1&2 Antibody Screen Negative Review of Systems - Review of Systems All systems: reviewed and no additional remarkable complaints except Critical Care Progress Note - Nutrition Nutrition: Nutrition Category Date Time Status Regular Diet [DIET] Diets 03/02/17 Lunch Active Assessment/Plan (1) Heroin withdrawal Assessment and plan: 16 year old female with history of asthma, heroin, methadone and benzodiazepine abuse. Neuro: Patient seen by psychiatry, going through heroin withdrawal, starting on methadone taper. Pulm: Asthma, continue IV Solu-Medrol, increase albuterol treatments to every 2 hours, will taper as patient improves. CV: Hemodynamically stable Hem: No acute issues Renal: Urine output within normal limits, will monitor. Endo: No acute issues GI: Regular diet ID: No acute issues DVT proph - Lovenox GI proph - not currently indicated Code status - full code Crtical Care Time spent 35 minutes Multi-disciplinary rounds were performed with house staff, nursing, speech therapy, respiratory therapy, pharmacy and nutrition with integrated input from the primary team/attending and other consulting services. The documented time is cumulative and includes review of patient data/exams/labs/chart review and examination of the patient on rounds and throughout the day; time is exclusive of any procedures or teaching time. Current Visit: Yes Status: Acute
--- NOTE | 2017-03-02 17:54 | CP.PCM.PN ---
Subjective - Date & Time of Evaluation Date of Evaluation: 03/02/17 Time of Evaluation: 07:15 - Subjective Subjective: Medical Attending Note: Follow-up: Heroin withdrawal, asthma exacerbation Patient seen this morning. Patient on high-flow at several point during the day she takes it off strongly advocated to keep on. Patient at times agitated and refuses to keep Bipap at many points of the day. Objective - Vital Signs/Intake and Output Vital Signs (last 24 hours): Temp Pulse Resp BP Pulse Ox 98.7 F 58 L 15 128/86 98 03/02/17 16:00 03/02/17 17:02 03/02/17 17:02 03/02/17 17:02 03/02/17 17:02 Intake and Output: 03/02/17 03/02/17 06:59 18:59 Intake Total 475 1350 Output Total 400 600 Balance 75 750 - Medications Medications: Current Medications Albuterol Sulfate (Albuterol 0.083% Inhal Jenny (2.5 Mg/3 Ml) Ud) 2.5 mg INH RQ2 [facility] Last Admin: 03/02/17 17:00 Dose: 2.5 mg Albuterol/Ipratropium (Duoneb 3 Mg/0.5 Mg (3 Ml) Ud) 3 ml INH RQ6 [facility] Last Admin: 03/02/17 13:50 Dose: 3 ml Enoxaparin Sodium (Lovenox) 40 mg SC DAILY [facility] Last Admin: 03/02/17 09:40 Dose: 40 mg Famotidine (Pepcid) 20 mg PO BID [facility] Last Admin: 03/02/17 17:37 Dose: 20 mg Sodium Chloride (Sodium Chloride 0.9%) 1,000 mls @ 75 mls/hr IV .[id number] [facility] Last Admin: 03/02/17 13:39 Dose: 75 mls/hr Piperacillin Sod/Tazobactam Sod (Zosyn 3.375 Gm Iv Premix) 50 mls @ 100 mls/hr IVPB Q6H [facility] Last Admin: 03/02/17 13:40 Dose: 100 mls/hr Vancomycin HCl 750 mg/ Sodium (Chloride) 250 mls @ 133 mls/hr IVPB Q12H [facility] Stop: 03/07/17 09:01 Last Admin: 03/02/17 09:56 Dose: 133 mls/hr Methadone HCl (Methadone) 20 mg PO Q24H [facility] PRN Reason: Taper Stop: 03/06/17 10:59 Last Admin: 03/02/17 11:11 Dose: 20 mg Methylprednisolone (Solu-Medrol) 40 mg IVP Q8H [facility] Last Admin: 03/02/17 13:39 Dose: 40 mg Montelukast Sodium (Singulair) 10 mg PO HS [facility] Last Admin: 03/02/17 00:10 Dose: 10 mg Naloxone HCl (Narcan) 0.4 mg IVP Q20M PRN PRN Reason: Other Last Admin: 03/02/17 06:00 Dose: 0.4 mg Ondansetron HCl (Zofran Inj) 4 mg IVP Q6H [facility] Stop: 03/04/17 00:46 Last Admin: 03/02/17 13:41 Dose: 4 mg - Labs Labs: 03/02/17 06:21 03/02/17 06:21 - Constitutional Appears: Non-toxic, Unkempt, Younger Than Stated Age, Combative - Eye Exam Eye Exam: EOMI - ENT Exam ENT Exam: Mucous Membranes Moist - Respiratory Exam Respiratory Exam: Decreased Breath Sounds, Rales, Rhonchi, NORMAL BREATHING PATTERN. absent: Respiratory Distress - Cardiovascular Exam Cardiovascular Exam: REGULAR RHYTHM, +S1, +S2 - GI/Abdominal Exam GI & Abdominal Exam: Soft, Normal Bowel Sounds. absent: Distended, Guarding, Rigid, Tenderness, Rebound - Extremities Exam Extremities Exam: absent: Pedal Edema, Tenderness - Neurological Exam Neurological Exam: Alert, Awake, Oriented x3 - Skin Skin Exam: Dry, Intact, Warm Additional comments: right upper and left upper extremities: injection sites; erythematous has resolved Assessment and Plan (1) Asthma with status asthmaticus Status: Acute (2) Heroin abuse Status: Acute (3) Heroin withdrawal Status: Acute (4) Narcotic drug user Status: Chronic (5) Prophylactic measure Status: Acute - Assessment and Plan (Free Text) Assessment: Assessment/Plan 1) Heroin withdrawal * Methadone taper * Psych (Dr. Lord) on board-->help appreciated * Monitor for withdrawal signs 2) Asthma with status asthmaticus * CXR 03/01: lung morris remaining hyperinflated. Interstitial markings are increased and coarsened, somewhat more so compared to the prior exam. Few scattered peribronchial cuffing changes as well. Findings may represent sequela of reactive/inflammatory airway disease and or viral illness. Underlying interstitial infiltrates and/or fibrosis not excluded. * CXR 03/02: coarsened interstitial markings. Hyperinflation. * Duoneb 3ml INH Q6 scheduled * Solumedrol 40mg IVP Q8H * Singulair 10mg PO HS * Monitor ABG 3) Bilateral RUE cellulitis * at the injection sites; improved * Zosyn 3.375gm IV Q6H (active since 03/01/17) * Vancomycin 750gm IVPB Q12 daily (active since 03/01/17); ordered for vancomycin trough tomorrow * Monitor area 4) Xanax dependence * UDS: + Xanax * Xanax 0.25mg PO daily * Seizure precautions 5) PPX * Lovenox 40mg SC daily * Pepcid 20mg PO BID * NS @ 75cc/hr * SCD b/l * OOB
[2017-03-02] MEDS ORDERED: Albuterol 0.083% Inhal Sol (2.5 mg/3 mL) UD INH PRN (19:40)
[2017-03-03] MEDS: Piperacill/Tazo 3.375gm in Dex 50 ML IVPB SCH ×2 (00:27→06:43)
[2017-03-03] MEDS: Albuterol-Ipratrop 3 mg / 0.5 (3 ml) UD INH SCH ×4 (01:53→19:45)
[2017-03-03] MEDS: MethylPREDNISolone 40 mg Vial IVP SCH ×3 (02:56→21:35)
[2017-03-03] MEDS: Sodium Chloride 0.9% 1,000 ML IV SCH ×2 (03:17→06:48)
[2017-03-03] MEDS: Enoxaparin 40 mg Syringe SC SCH (10:23)
--- NOTE | 2017-03-03 10:41 | CP.CCUPN ---
CCU Subjective - Physician Review Events Since Last Encounter (Free Text): 03/03/17 10:40 Patient is a 26-year-old female with the history of drug abuse, intravenous drug abuse have IM, used to be on methadone in the past, also homeless. Patient hospitalized with increasing shortness of breath or wheezing. Currently she is complaining of increasing shortness of breath. Wheezing also noted. Complaining of abdominal pain, nausea. But no vomiting noted. Poorly eating. Patient is currently receiving tapering dose of methadone, but patient claims that the still continues to have a symptoms of withdrawal at this time epigastric discomfort noted, anxiety noted. Not feeling good CCU Objective - Vital Signs / Intake & Output Vital Signs (Last 4 hours): Vital Signs Pulse Resp Pulse Ox 03/03/17 07:50 20 03/03/17 07:32 78 18 96 03/03/17 07:00 75 17 96 Intake and Output (Last 8hrs): Intake & Output 03/02/17 03/03/17 03/03/17 22:59 06:59 14:59 Intake Total 1175 732 75 Output Total 200 500 Balance 975 232 75 Intake: Intake, IV Amount 575 612 75 Left Upper arm 575 612 75 Oral 600 120 Output: Urine 200 500 Urine, Voided 200 500 Other: # Voids Urine, Voided 1 - Physical Exam Narrative Physical Exam (Free Text): 03/03/17 10:40 On examination: Vital signs reviewed Chest good air entry bilaterally, expiratory wheezing noted, regular heart sound. Nontender abdomen, but epigastric mild discomfort noted No pedal edema Head: Positive for: Atraumatic, Normocephalic Pupils: Positive for: PERRL Extroacular Muscles: Positive for: EOMI Mouth: Positive for: Moist Mucous Membranes Respiratory/Chest: Positive for: Clear to Auscultation, Good Air Exchange Cardiovascular: Positive for: Regular Rate and Rhythm Abdomen: Positive for: Normal Bowel Sounds. Negative for: Tenderness, Distention Neurological: Positive for: CN II-XII Intact, Speech Normal Skin: Positive for: Warm Psychiatric: Positive for: Alert, Oriented x 3, Normal Insight, Normal Concentration - Medications Active Medications: Active Medications Generic Name Dose Route Start Last Admin Trade Name Freq PRN Reason Stop Dose Admin Albuterol Sulfate 2.5 mg 03/02/17 19:40 Albuterol 0.083% Inhal Jenny (2.5 Mg/3 Ml) Ud INH RQ2 [facility] Shortness of Breath Albuterol/Ipratropium 3 ml 03/02/17 02:00 03/03/17 07:49 Duoneb 3 Mg/0.5 Mg (3 Ml) Ud INH 3 ml RQ6 [facility] Administration Alprazolam 0.25 mg 03/03/17 10:00 03/03/17 10:23 Xanax PO 03/10/17 10:01 0.25 mg DAILY [facility] Administration Enoxaparin Sodium 40 mg 03/02/17 10:00 03/03/17 10:23 Lovenox SC 40 mg DAILY [facility] Administration Famotidine 20 mg 03/02/17 10:00 03/03/17 10:23 Pepcid PO 20 mg BID [facility] Administration Sodium Chloride 1,000 mls @ 75 mls/hr 03/01/17 18:45 03/03/17 06:48 Sodium Chloride 0.9% IV 75 mls/hr .[id number] [facility] Administration Vancomycin HCl 750 mg/ Sodium 250 mls @ 133 mls/hr 03/02/17 09:45 03/03/17 10: 27 Chloride IVPB 03/07/17 09:01 133 mls/hr Q12H [facility] Administration Piperacillin Sod/Tazobactam Sod 100 mls @ 100 mls/hr 03/03/17 12:45 Zosyn 3.375 In Ns 100ml IVPB Q6H [facility] Methadone HCl 20 mg 03/02/17 11:00 03/03/17 10:11 Methadone PO 03/06/17 10:59 Not Given Q24H [facility] Taper Methadone HCl 20 mg 03/03/17 12:00 Methadone PO 03/03/17 12:01 ONCE ONE Methylprednisolone 40 mg 03/03/17 10:00 03/03/17 10:22 Solu-Medrol IVP 40 mg Q12 [facility] Administration Montelukast Sodium 10 mg 03/01/17 22:00 03/02/17 21:47 Singulair PO 10 mg HS [facility] Administration Ondansetron HCl 4 mg 03/02/17 06:45 03/03/17 06:43 Zofran Inj IVP 03/04/17 00:46 4 mg Q6H [facility] Administration - Patient Studies Lab Studies: Lab Studies 03/03/17 Range/Units 06:27 Vancomycin Trough 11.8 H (5.0-10.0) ug/mL Laboratory Results - last 24 hr 03/03/17 06:27 Vancomycin Trough 11.8 H Review of Systems - Review of Systems All systems: reviewed and no additional remarkable complaints except Review of Systems: Nausea noted. Epigastric pain noted. Agitation. Patient sometimes wants to leave Critical Care Progress Note - Nutrition Nutrition: Nutrition Category Date Time Status Regular Diet [DIET] Diets 03/02/17 Lunch Active Assessment/Plan (1) Asthma with status asthmaticus Current Visit: Yes Status: Acute Comment: Acute asthma exacerbation Duonebs inhaled q2 hours for now, will reduce as tolerated. Continue prednisone 20mg BID x1 day, 10mg BID x 3 days and then 10mg x 3 day. Advair diskus 250/50 inhaled BID Continue to take medication as directed. Follow up with Dr Arceo within one week. (2) Heroin abuse Current Visit: Yes Status: Acute (3) Heroin withdrawal Assessment and plan: most likely patient is currently suffering from increasing opiate withdrawal. the patient is currently on tapering dose of methadone, will give 20 mg extra dose of methadone to reduce the epigastric discomfort, nausea. And associated tachycardia and hypoxia. Continue the bronchial dilator. On antibiotic. Spoke to the patient in details about the overall prognosis. We'll continue the oxygen. Patient can be transferred to floor Current Visit: Yes Status: Acute
--- NOTE | 2017-03-03 12:08 | PCM.PYCHPN ---
Psychiatric Progress Note - Psychiatric Progress Note Patient seen today, length of contact: 15 min Patient Chief Complaint: "I didn't sleep last night" Problems Identified/Issues Discussed: She is seen, chart reviewed. Improving with detox. Mood is better, denies major psych sxs, ie Si, HI, del/brenner. Interested in after care - support given Insomnia and anxiety + Seroquel and gabapentin added Medication Change: Yes (seroquel and gabapentin) Medical Record Reviewed: Yes Mental Status Examination - Cognitive Function Orientation: Person, Place, Situation, Time Memory: Intact Attention: Poor Concentration: Poor Association: WNL Fund of Knowledge: Poor - Mood Mood: Anxious - Affect Affect: Constricted - Speech Speech: Appropriate - Formal Thought Process Formal Thought Process: No Impairment - Suicidal Ideation Suicidal Ideation: No - Homicidal Ideation Homicidal Ideation: No Goal/Treatment Plan - Goal/Treatment Plan Need for Continued Stay: Other (medical) Progress Toward Problem(s) and Goals/Treatment Plan: Methadone taper continues gabapentin for anxiety Seeroquel for insomnia As needed medications Support and psychoeducation Refer to methadone maintenance program or IOP ([facility], [facility] or [facility], all in [place])
[2017-03-03] MEDS ORDERED: Piperacillin/Tazobact 3.375 gm 100 ML IVPB SCH (12:45)
--- NOTE | 2017-03-03 14:00 | CP.PCM.PN ---
Subjective - Date & Time of Evaluation Date of Evaluation: 03/03/17 Time of Evaluation: 12:55 - Subjective Subjective: Medical Attending Note Follow-up: Heroin withdrawal, status asthmaticus, cellulitis, xanax dependence Patient seen and examined at bedside. Patient reports she feels good. Patient reports she had a shower. She had a huge bowel movement yesterday evening. Patient denies headache, denies nausea, reports dry cough, denies abdominal pain , denies nausea, denies vomiting, denies dysuria, denies diarrhea. Objective - Vital Signs/Intake and Output Vital Signs (last 24 hours): Temp Pulse Resp BP Pulse Ox 97.9 F 91 H 22 129/88 91 L 03/03/17 12:00 03/03/17 11:02 03/03/17 13:04 03/03/17 11:02 03/03/17 11:02 Intake and Output: 03/03/17 03/03/17 06:59 18:59 Intake Total 1347 550 Output Total 500 400 Balance 847 150 - Medications Medications: Current Medications Albuterol Sulfate (Albuterol 0.083% Inhal Jenny (2.5 Mg/3 Ml) Ud) 2.5 mg INH RQ2 PRN PRN Reason: Shortness of Breath Albuterol/Ipratropium (Duoneb 3 Mg/0.5 Mg (3 Ml) Ud) 3 ml INH RQ6 [facility] Last Admin: 03/03/17 13:29 Dose: 3 ml Alprazolam (Xanax) 0.25 mg PO DAILY [facility] Stop: 03/10/17 10:01 Last Admin: 03/03/17 10:23 Dose: 0.25 mg Enoxaparin Sodium (Lovenox) 40 mg SC DAILY [facility] Last Admin: 03/03/17 10:23 Dose: 40 mg Famotidine (Pepcid) 20 mg PO BID [facility] Last Admin: 03/03/17 10:23 Dose: 20 mg Gabapentin (Neurontin) 100 mg PO TID [facility] Sodium Chloride (Sodium Chloride 0.9%) 1,000 mls @ 75 mls/hr IV .[id number] [facility] Last Admin: 03/03/17 06:48 Dose: 75 mls/hr Vancomycin HCl 750 mg/ Sodium (Chloride) 250 mls @ 133 mls/hr IVPB Q12H [facility] Stop: 03/07/17 09:01 Last Admin: 03/03/17 10:27 Dose: 133 mls/hr Piperacillin Sod/Tazobactam Sod (Zosyn 3.375 In Ns 100ml) 100 mls @ 100 mls/hr IVPB Q6H [facility] Methadone HCl (Methadone) 15 mg PO Q24H [facility] PRN Reason: Taper Stop: 03/06/17 10:59 Last Admin: 03/03/17 10:11 Dose: Not Given Methylprednisolone (Solu-Medrol) 40 mg IVP Q12 [facility] Last Admin: 03/03/17 10:22 Dose: 40 mg Montelukast Sodium (Singulair) 10 mg PO [facility] Last Admin: 03/02/17 21:47 Dose: 10 mg Ondansetron HCl (Zofran Inj) 4 mg IVP Q6H [facility] Stop: 03/04/17 00:46 Last Admin: 03/03/17 06:43 Dose: 4 mg Quetiapine Fumarate (Seroquel) 50 mg PO [facility] - Labs Labs: 03/02/17 06:21 03/02/17 06:21 - Constitutional Appears: Non-toxic, No Acute Distress, Younger Than Stated Age - Head Exam Head Exam: NORMAL INSPECTION - Eye Exam Eye Exam: EOMI - ENT Exam ENT Exam: Mucous Membranes Moist - Respiratory Exam Respiratory Exam: Decreased Breath Sounds, Rales, Rhonchi, NORMAL BREATHING PATTERN. absent: Respiratory Distress, Stridor - Cardiovascular Exam Cardiovascular Exam: REGULAR RHYTHM, +S1, +S2 - GI/Abdominal Exam GI & Abdominal Exam: Soft, Normal Bowel Sounds. absent: Distended, Firm, Guarding, Rigid, Tenderness, Rebound - Extremities Exam Extremities Exam: absent: Pedal Edema, Tenderness - Back Exam Back Exam: absent: CVA tenderness (L), CVA tenderness (R) - Neurological Exam Neurological Exam: Alert, Awake, Oriented x3 - Psychiatric Exam Psychiatric exam: Normal Affect, Normal Mood - Skin Skin Exam: Dry, Intact, Normal Color, Warm Additional comments: Injection sites : erythema resolved Assessment and Plan (1) Asthma with status asthmaticus Status: Acute (2) Heroin abuse Status: Acute (3) Heroin withdrawal Status: Acute (4) Narcotic drug user Status: Chronic (5) Prophylactic measure Status: Acute - Assessment and Plan (Free Text) Assessment: 1) Heroin withdrawal * Methadone taper * Psych (Dr. Lord) on board-->help appreciated * Monitor for withdrawal signs * [employer] referral: patient reports weight loss significant and attributes to drug use 2) Asthma with status asthmaticus * CXR 03/01: lung morris remaining hyperinflated. Interstitial markings are increased and coarsened, somewhat more so compared to the prior exam. Few scattered peribronchial cuffing changes as well. Findings may represent sequela of reactive/inflammatory airway disease and or viral illness. Underlying interstitial infiltrates and/or fibrosis not excluded. * CXR 03/02: coarsened interstitial markings. Hyperinflation. * Duoneb 3ml INH Q6 scheduled * Solumedrol 40mg IVP Q12H * Singular 10mg PO HS * CO2 retention; needs to wear bipap which she is 3) Bilateral RUE cellulitis * resolved * Will switch to PO antibiotics: Bactrim DS 1 tab PO bid for 5 days * Monitor area 4) Xanax dependence * D/c xanax; gabapentin 100mg PO tid * Seizure precautions 5) Depression/Anxiety * Seroquel 50mg PO qHS * Gabapentin 100mg PO tid 6) PPX * Lovenox 40mg SC daily * Pepcid 20mg PO BID * NS @ 75cc/hr * SCD b/l * OOB
[2017-03-03] MEDS ORDERED: Tmp-Smz 800 mg-160 mg DS Tab PO SCH (14:15)
[2017-03-03] MEDS: Saccharomyces Boulardi 250 mg Cap PO SCH (18:29)
[2017-03-03] MEDS: Tmp-Smz 800 mg-160 mg DS Tab PO SCH (18:41)
[2017-03-04] MEDS: Albuterol-Ipratrop 3 mg / 0.5 (3 ml) UD INH SCH ×4 (02:02→19:07)
[2017-03-04 05:54] LABS: ABG ALLEN TEST POS; ARTERIAL BLOOD HGB O2 SAT 96.1 % (95.0-98.0); CARBOXYHEMOGLOBIN 2.2 % (0.5-1.5); DRAW SITE RR; HHB 0.5 % (0.0-5.0); METHEMOGLOBIN 1.2 % (0.0-3.0)
[2017-03-04] MEDS: Tmp-Smz 800 mg-160 mg DS Tab PO SCH ×2 (06:02→17:52)
[2017-03-04 06:56] LABS: CHLORIDE 93 mmol/L (98-107); POTASSIUM 4.7 mmol/L (3.6-5.2); SODIUM 137 mmol/L (132-148)
[2017-03-04 06:58] LABS: AST/SGOT 17 U/L (14-36); BILIRUBIN,TOTAL 0.8 mg/dL (0.2-1.3); CARBON DIOXIDE 35 mmol/L (22-30); GFR AFRICAN-AMERICAN > 60; TOTAL PROTEIN 6.6 g/dL (6.3-8.3)
[2017-03-04 06:59] LABS: ALKALINE PHOSPHATASE 62 U/L (38-126); ALT/SGPT 17 U/L (9-52); BLOOD UREA NITROGEN 12 mg/dL (7-17); CALCIUM 8.5 mg/dl (8.6-10.4); GLUCOSE,RANDOM 88 mg/dL (65-105); MAGNESIUM 1.9 mg/dL (1.6-2.3); PHOSPHOROUS 3.3 mg/dL (2.5-4.5)
[2017-03-04 07:08] LABS: BASO # 0.1 K/uL (0.0-0.2); BASO % 0.7 % (0.0-2.0); EOS % 0.2 % (0.0-4.0); HEMATOCRIT 44.7 % (34.0-47.0); LYMPH # 0.3 K/uL (1.0-4.3); LYMPH % 4.2 % (20.0-40.0); MEAN CELL VOLUME 73.8 fL (81.0-99.0); MEAN CORPUSCULAR HEMOGLOBIN 22.9 pg (27.0-31.0); MEAN CORPUSCULAR HGB CONC 31.1 g/dL (33.0-37.0); MEAN PLATELET VOLUME 9.1 fL (7.2-11.7); MONO # 0.3 K/uL (0.0-0.8); MONO % 4.6 % (0.0-10.0); NRBC % 0.2 % (0.0-2.0); PLATELET COUNT 228 K/uL (130-400); RED CELL DISTRIBUTION WIDTH 19.4 % (11.5-14.5); WHITE BLOOD COUNT 7.5 K/uL (4.8-10.8)
[2017-03-04 07:13] LABS: ALB/GLOB RATIO 0.9 (1.0-2.1)
[2017-03-04 08:20] LABS: NEUTROPHIL 87 % (50-75); TOTAL CELLS COUNTED 100
[2017-03-04] MEDS: Enoxaparin 40 mg Syringe SC SCH ×2 (09:21→11:13)
[2017-03-04] MEDS: Saccharomyces Boulardi 250 mg Cap PO SCH ×2 (09:21→17:52)
[2017-03-04] MEDS: MethylPREDNISolone 40 mg Vial IVP SCH ×2 (09:21→21:18)
--- NOTE | 2017-03-04 13:54 | PCM.PYCHPN ---
Psychiatric Progress Note - Psychiatric Progress Note Patient seen today, length of contact: 16 min Patient Chief Complaint: "I was very anxious" Problems Identified/Issues Discussed: She is seen, chart reviewed. Improving with detox - 10 mg today. Ending tomorrow. Mood is better, but anxious - gabapenitn increased. No wdw sxs from xanax. She understood that she should not take it outside Seroquel increased and gabapentin increased Support given Medication Change: Yes (seroquel and gabapentin) Medical Record Reviewed: Yes Mental Status Examination - Cognitive Function Orientation: Person, Place, Situation, Time Memory: Intact Attention: Poor Concentration: Poor Association: WNL Fund of Knowledge: Poor - Mood Mood: Anxious - Affect Affect: Constricted - Speech Speech: Appropriate - Formal Thought Process Formal Thought Process: No Impairment - Suicidal Ideation Suicidal Ideation: No - Homicidal Ideation Homicidal Ideation: No Goal/Treatment Plan - Goal/Treatment Plan Need for Continued Stay: Other (medical) Progress Toward Problem(s) and Goals/Treatment Plan: Methadone taper continues gabapentin for anxiety Seeroquel for insomnia As needed medications Support and psychoeducation Refer to methadone maintenance program or IOP ([facility], [facility] or [facility], all in [place])
--- NOTE | 2017-03-04 14:55 | CP.PCM.PN ---
<TawnyaFortino - Last Filed: 03/04/17 14:56> Subjective - Date & Time of Evaluation Date of Evaluation: 03/04/17 Time of Evaluation: 07:35 - Subjective Subjective: PGY-1 Medicine Progress Note for Dr. Rea Patient seen and examined by bedside. No acute event overnight. Patient sitting up eating breakfast. She stated that her tremors have improved. She is complaining of multiple bouts of diarrhea. Patient is tolerating diet. Denied fever/chills, cp, sob, palpitations, abd pain, n/v, incontinence. Objective - Vital Signs/Intake and Output Vital Signs (last 24 hours): Temp Pulse Resp BP Pulse Ox 97.2 F L 80 15 124/86 93 L 03/04/17 08:00 03/04/17 09:28 03/04/17 11:30 03/04/17 08:00 03/04/17 08:00 Intake and Output: 03/04/17 03/04/17 06:59 18:59 Intake Total 320 320 Output Total 600 301 Balance -280 19 - Medications Medications: Current Medications Albuterol Sulfate (Albuterol 0.083% Inhal Jenny (2.5 Mg/3 Ml) Ud) 2.5 mg INH RQ2 PRN PRN Reason: Shortness of Breath Albuterol/Ipratropium (Duoneb 3 Mg/0.5 Mg (3 Ml) Ud) 3 ml INH RQ6 [facility] Last Admin: 03/04/17 14:02 Dose: 3 ml Chlordiazepoxide (Librium) 25 mg PO DAILY [facility] Stop: 03/06/17 10:01 Last Admin: 03/04/17 09:21 Dose: 25 mg Enoxaparin Sodium (Lovenox) 40 mg SC DAILY [facility] Last Admin: 03/04/17 11:13 Dose: Not Given Famotidine (Pepcid) 20 mg PO BID [facility] Last Admin: 03/04/17 09:22 Dose: 20 mg Gabapentin (Neurontin) 200 mg PO TID [facility] Methadone HCl (Methadone) 10 mg PO Q24H [facility] PRN Reason: Taper Stop: 03/06/17 10:59 Last Admin: 03/04/17 11:13 Dose: 10 mg Methylprednisolone (Solu-Medrol) 40 mg IVP Q12 [facility] Last Admin: 03/04/17 09:21 Dose: 40 mg Montelukast Sodium (Singulair) 10 mg PO HS [facility] Last Admin: 03/03/17 21:34 Dose: 10 mg Quetiapine Fumarate (Seroquel) 100 mg PO HS [facility] Saccharomyces Boulardii (Florastor) 250 mg PO BID [facility] Last Admin: 03/04/17 09:21 Dose: 250 mg Trimethoprim/Sulfamethoxazole (Bactrim Ds Tab) 1 tab PO Q12H [facility] Last Admin: 03/04/17 06:02 Dose: 1 tab - Labs Labs: 03/04/17 06:41 03/04/17 06:36 - Constitutional Appears: No Acute Distress - Head Exam Head Exam: ATRAUMATIC, NORMOCEPHALIC - Eye Exam Eye Exam: EOMI, Normal appearance Pupil Exam: PERRL - ENT Exam ENT Exam: Mucous Membranes Moist - Neck Exam Neck Exam: Normal Inspection - Respiratory Exam Respiratory Exam: Clear to Ausculation Bilateral, NORMAL BREATHING PATTERN - Cardiovascular Exam Cardiovascular Exam: REGULAR RHYTHM, +S1, +S2 - GI/Abdominal Exam GI & Abdominal Exam: Soft, Normal Bowel Sounds. absent: Tenderness - Extremities Exam Extremities Exam: Normal Capillary Refill. absent: Calf Tenderness - Back Exam Back Exam: absent: CVA tenderness (L), CVA tenderness (R) - Neurological Exam Neurological Exam: Alert, Awake, CN II-XII Intact, Oriented x3 - Psychiatric Exam Psychiatric exam: Normal Affect, Normal Mood - Skin Skin Exam: Dry, Warm. absent: Erythema (cellulitis resolving) Assessment and Plan - Assessment and Plan (Free Text) Plan: 1) Heroin withdrawal Methadone taper Psych consult, Dr. Lord, help appreciated Monitor for withdrawal signs Newspaper Editor referral: patient reports weight loss significant and attributes to drug use ECHO 2) Asthma with status asthmaticus CXR 03/01: lung morris remaining hyperinflated. Interstitial markings are increased and coarsened, somewhat more so compared to the prior exam. Few scattered peribronchial cuffing changes as well. Findings may represent sequela of reactive/inflammatory airway disease and or viral illness. Underlying interstitial infiltrates and/or fibrosis not excluded. CXR 03/02: coarsened interstitial markings. Hyperinflation. Duoneb 3ml INH Q6 scheduled Solumedrol 40mg IVP Q12H Singular 10mg PO HS 3) Bilateral RUE cellulitis resolved Will switch to PO antibiotics: Bactrim DS 1 tab PO bid for 5 days Florastor 250 mg PO BID ECHO Monitor area 4) Xanax dependence D/c xanax gabapentin 100mg PO tid Seizure precautions 5) Depression/Anxiety Seroquel 50mg PO qHS Gabapentin 100mg PO tid 6) Prophylactic Measures Lovenox 40mg SC daily Pepcid 20mg PO BID NS @ 75cc/hr SCD b/l OOB Ensure enlive PO BID Regular diet <Yaw Rea H - Last Filed: 03/04/17 15:11> Objective - Vital Signs/Intake and Output Vital Signs (last 24 hours): Temp Pulse Resp BP Pulse Ox 97.2 F L 80 15 124/86 93 L 03/04/17 08:00 03/04/17 09:28 03/04/17 11:30 03/04/17 08:00 03/04/17 08:00 Intake and Output: 03/04/17 03/04/17 06:59 18:59 Intake Total 320 320 Output Total 600 301 Balance -280 19 - Medications Medications: Current Medications Albuterol Sulfate (Albuterol 0.083% Inhal Jenny (2.5 Mg/3 Ml) Ud) 2.5 mg INH RQ2 PRN PRN Reason: Shortness of Breath Albuterol/Ipratropium (Duoneb 3 Mg/0.5 Mg (3 Ml) Ud) 3 ml INH RQ6 [facility] Last Admin: 03/04/17 14:02 Dose: 3 ml Chlordiazepoxide (Librium) 25 mg PO DAILY [facility] Stop: 03/06/17 10:01 Last Admin: 03/04/17 09:21 Dose: 25 mg Enoxaparin Sodium (Lovenox) 40 mg SC DAILY [facility] Last Admin: 03/04/17 11:13 Dose: Not Given Famotidine (Pepcid) 20 mg PO BID [facility] Last Admin: 03/04/17 09:22 Dose: 20 mg Gabapentin (Neurontin) 200 mg PO TID [facility] Methadone HCl (Methadone) 10 mg PO Q24H [facility] PRN Reason: Taper Stop: 03/06/17 10:59 Last Admin: 03/04/17 11:13 Dose: 10 mg Methylprednisolone (Solu-Medrol) 40 mg IVP Q12 [facility] Last Admin: 03/04/17 09:21 Dose: 40 mg Montelukast Sodium (Singulair) 10 mg PO HS [facility] Last Admin: 03/03/17 21:34 Dose: 10 mg Quetiapine Fumarate (Seroquel) 100 mg PO HS [facility] Saccharomyces Boulardii (Florastor) 250 mg PO BID [facility] Last Admin: 03/04/17 09:21 Dose: 250 mg Trimethoprim/Sulfamethoxazole (Bactrim Ds Tab) 1 tab PO Q12H [facility] Last Admin: 03/04/17 06:02 Dose: 1 tab - Labs Labs: 03/04/17 06:41 03/04/17 06:36 Attending/Attestation - Attestation I have personally seen and examined this patient.: Yes I have fully participated in the care of the patient.: Yes I have reviewed all pertinent clinical information, including history, physical exam and plan: Yes Notes (Text): 03/04/17 15:09 Medical attending: Patient was seen and examined by me, agree with the above note by medical office representative. The patient is well known to the medical service from previous complications with heroin use and asthma exacerbation. When I saw her she reported that she was feeling a lot better than before. Last night was very rough however she was started on a methadone tapering dose. At this time were to decrease the IV Solu-Medrol, will continue to monitor, and she's can remain on the tapering dose of methadone as per psychiatry. At this moment she is currently on IV Zosyn and IV vancomycin, she reports that not too long ago she was injecting herself in the arm. On exam those areas of the arm are not tender and are not swollen, she says that she thinks antibiotics are helping her. Were currently pending on a 2-D echo to assess for potential valvular endocarditis. thank you Yaw Rea
[2017-03-05] MEDS: Albuterol-Ipratrop 3 mg / 0.5 (3 ml) UD INH SCH ×4 (01:04→19:14)
[2017-03-05] MEDS: Tmp-Smz 800 mg-160 mg DS Tab PO SCH ×2 (05:41→17:48)
[2017-03-05] MEDS: Enoxaparin 40 mg Syringe SC SCH (11:00)
[2017-03-05] MEDS: Saccharomyces Boulardi 250 mg Cap PO SCH ×2 (11:00→17:49)
--- NOTE | 2017-03-05 12:17 | PCM.PYCHPN ---
Psychiatric Progress Note - Psychiatric Progress Note Patient seen today, length of contact: 17 min Patient Chief Complaint: "I'm tired" Problems Identified/Issues Discussed: She is seen, chart reviewed. No wdw sxs Sleep is so so, meds help No SI or AVH After care discussed - numbers given Medication Change: No Medical Record Reviewed: Yes Mental Status Examination - Cognitive Function Orientation: Person, Place, Situation, Time Memory: Intact Attention: Poor Concentration: Poor Association: WNL Fund of Knowledge: Poor - Mood Mood: Anxious - Affect Affect: Constricted - Speech Speech: Appropriate - Formal Thought Process Formal Thought Process: No Impairment - Suicidal Ideation Suicidal Ideation: No - Homicidal Ideation Homicidal Ideation: No Goal/Treatment Plan - Goal/Treatment Plan Need for Continued Stay: Discharge may exacerbated symptoms, Other (medical) Progress Toward Problem(s) and Goals/Treatment Plan: Methadone taper ended gabapentin for anxiety Seroquel for insomnia As needed medications Support and psychoeducation Refer to methadone maintenance program or IOP
--- NOTE | 2017-03-05 16:28 | CP.PCM.PN ---
<TawnyaFortino - Last Filed: 03/05/17 16:28> Subjective - Date & Time of Evaluation Date of Evaluation: 03/05/17 Time of Evaluation: 07:30 - Subjective Subjective: PGY-1 Medicine Progress Note for Dr. Rea Patient seen and examined by bedside. Patient sitting up eating breakfast. Patient asking to shower. She has no IV access since her only IV infiltrated overnight. She stated that her tremors continue to improve. Patient is tolerating diet. All medications switched to oral medications. Denied fever/ chills, cp, sob, palpitations, abd pain, n/v, incontinence. Objective - Vital Signs/Intake and Output Vital Signs (last 24 hours): Temp Pulse Resp BP Pulse Ox 98.1 F 83 18 138/60 95 03/05/17 07:00 03/05/17 07:00 03/05/17 07:00 03/05/17 07:00 03/05/17 07:00 Intake and Output: 03/05/17 03/05/17 06:59 18:59 Intake Total 520 Output Total 550 Balance -30 - Medications Medications: Current Medications Albuterol Sulfate (Albuterol 0.083% Inhal Jenny (2.5 Mg/3 Ml) Ud) 2.5 mg INH RQ2 PRN PRN Reason: Shortness of Breath Albuterol/Ipratropium (Duoneb 3 Mg/0.5 Mg (3 Ml) Ud) 3 ml INH RQ6 [facility] Last Admin: 03/05/17 07:48 Dose: Not Given Enoxaparin Sodium (Lovenox) 40 mg SC DAILY [facility] Last Admin: 03/05/17 11:00 Dose: 40 mg Famotidine (Pepcid) 20 mg PO BID [facility] Last Admin: 03/05/17 11:00 Dose: 20 mg Gabapentin (Neurontin) 300 mg PO TID [facility] Last Admin: 03/05/17 13:05 Dose: 300 mg Methadone HCl (Methadone) 5 mg PO Q24H [facility] PRN Reason: Taper Stop: 03/06/17 10:59 Last Admin: 03/05/17 12:00 Dose: 5 mg Montelukast Sodium (Singulair) 10 mg PO HS [facility] Last Admin: 03/04/17 21:18 Dose: 10 mg Prednisone (Prednisone Tab) 20 mg PO DAILY [facility] Quetiapine Fumarate (Seroquel) 100 mg PO HS [facility] Last Admin: 03/04/17 21:18 Dose: 100 mg Saccharomyces Boulardii (Florastor) 250 mg PO BID [facility] Last Admin: 03/05/17 11:00 Dose: 250 mg Trimethoprim/Sulfamethoxazole (Bactrim Ds Tab) 1 tab PO Q12H [facility] Last Admin: 03/05/17 05:41 Dose: 1 tab - Labs Labs: 03/04/17 06:41 03/04/17 06:36 - Constitutional Appears: No Acute Distress - Head Exam Head Exam: ATRAUMATIC, NORMOCEPHALIC - Eye Exam Eye Exam: EOMI, Normal appearance Pupil Exam: PERRL - ENT Exam ENT Exam: Mucous Membranes Moist - Neck Exam Neck Exam: Normal Inspection - Respiratory Exam Respiratory Exam: Clear to Ausculation Bilateral, NORMAL BREATHING PATTERN - Cardiovascular Exam Cardiovascular Exam: REGULAR RHYTHM, +S1, +S2 - GI/Abdominal Exam GI & Abdominal Exam: Soft, Normal Bowel Sounds. absent: Tenderness - Back Exam Back Exam: absent: CVA tenderness (L), CVA tenderness (R) - Neurological Exam Neurological Exam: Alert, Awake, CN II-XII Intact, Oriented x3 - Psychiatric Exam Psychiatric exam: Normal Affect, Normal Mood - Skin Skin Exam: Dry, Intact, Warm Assessment and Plan - Assessment and Plan (Free Text) Plan: 1) Heroin withdrawal Methadone taper Psych consult, Dr. Lord, help appreciated Monitor for withdrawal signs Carry Out Clerk referral: patient reports weight loss significant and attributes to drug use ECHO 2) Asthma with status asthmaticus CXR 03/01: lung morris remaining hyperinflated. Interstitial markings are increased and coarsened, somewhat more so compared to the prior exam. Few scattered peribronchial cuffing changes as well. Findings may represent sequela of reactive/inflammatory airway disease and or viral illness. Underlying interstitial infiltrates and/or fibrosis not excluded. CXR 03/02: coarsened interstitial markings. Hyperinflation. Duoneb 3ml INH Q6 scheduled Solumedrol 40mg IVP Q12H Singular 10mg PO HS 3) Bilateral RUE cellulitis resolved Bactrim DS 1 tab PO bid for 5 days Florastor 250 mg PO BID ECHO Monitor area 4) Xanax dependence discontinued xanax gabapentin 100mg PO tid Seizure precautions 5) Depression/Anxiety Seroquel 50mg PO qHS Gabapentin 100mg PO tid 6) Prophylactic Measures Lovenox 40mg SC daily Pepcid 20mg PO BID SCD b/l OOB Ensure enlive PO BID Regular diet <ReaYaw vazquez H - Last Filed: 03/05/17 16:49> Objective - Vital Signs/Intake and Output Vital Signs (last 24 hours): Temp Pulse Resp BP Pulse Ox 98.1 F 83 18 138/60 95 03/05/17 07:00 03/05/17 07:00 03/05/17 07:00 03/05/17 07:00 03/05/17 07:00 Intake and Output: 03/05/17 03/05/17 06:59 18:59 Intake Total 520 Output Total 550 Balance -30 - Medications Medications: Current Medications Albuterol Sulfate (Albuterol 0.083% Inhal Jenny (2.5 Mg/3 Ml) Ud) 2.5 mg INH RQ2 PRN PRN Reason: Shortness of Breath Albuterol/Ipratropium (Duoneb 3 Mg/0.5 Mg (3 Ml) Ud) 3 ml INH RQ6 [facility] Last Admin: 03/05/17 07:48 Dose: Not Given Enoxaparin Sodium (Lovenox) 40 mg SC DAILY [facility] Last Admin: 03/05/17 11:00 Dose: 40 mg Famotidine (Pepcid) 20 mg PO BID [facility] Last Admin: 03/05/17 11:00 Dose: 20 mg Gabapentin (Neurontin) 300 mg PO TID [facility] Last Admin: 03/05/17 13:05 Dose: 300 mg Methadone HCl (Methadone) 5 mg PO Q24H [facility] PRN Reason: Taper Stop: 03/06/17 10:59 Last Admin: 03/05/17 12:00 Dose: 5 mg Montelukast Sodium (Singulair) 10 mg PO [facility] Last Admin: 03/04/17 21:18 Dose: 10 mg Prednisone (Prednisone Tab) 20 mg PO DAILY [facility] Quetiapine Fumarate (Seroquel) 100 mg PO HS [facility] Last Admin: 03/04/17 21:18 Dose: 100 mg Saccharomyces Boulardii (Florastor) 250 mg PO BID [facility] Last Admin: 03/05/17 11:00 Dose: 250 mg Trimethoprim/Sulfamethoxazole (Bactrim Ds Tab) 1 tab PO Q12H [facility] Last Admin: 03/05/17 05:41 Dose: 1 tab - Labs Labs: 03/04/17 06:41 03/04/17 06:36 Attending/Attestation - Attestation I have personally seen and examined this patient.: Yes I have fully participated in the care of the patient.: Yes I have reviewed all pertinent clinical information, including history, physical exam and plan: Yes Notes (Text): 03/05/17 16:44 Medical attending: Patient was seen and examined by me, agrees the above note by medical van driver. Earlier in the day we lost IV access, it was difficult to reestablish IV access so she was getting IV antibiotics previously and the white blood cell count has improved significantly so will airplane coverer to by mouth into antibiotics She appeared to be very alert and awake today, she is able to ambulate without too much shortness of breath. The breathing is improving thank you Yaw Rea
[2017-03-06] MEDS: Albuterol-Ipratrop 3 mg / 0.5 (3 ml) UD INH SCH ×4 (01:14→19:35)
[2017-03-06 01:26] VITALS: RESP 20
[2017-03-06] MEDS: Tmp-Smz 800 mg-160 mg DS Tab PO SCH ×2 (05:44→17:51)
[2017-03-06 08:29] LABS: BASO % 0.4 % (0.0-2.0); EOS % 0.1 % (0.0-4.0); HEMATOCRIT 49.8 % (34.0-47.0); LYMPH % 14.7 % (20.0-40.0); MEAN CELL VOLUME 72.7 fL (81.0-99.0); MEAN CORPUSCULAR HEMOGLOBIN 23.4 pg (27.0-31.0); MEAN CORPUSCULAR HGB CONC 32.2 g/dL (33.0-37.0); MEAN PLATELET VOLUME 8.9 fL (7.2-11.7); MONO # 0.7 K/uL (0.0-0.8); MONO % 9.1 % (0.0-10.0); NRBC % 0.3 % (0.0-2.0); RED CELL DISTRIBUTION WIDTH 19.5 % (11.5-14.5); WHITE BLOOD COUNT 7.1 K/uL (4.8-10.8)
[2017-03-06 08:31] LABS: CHLORIDE 90 mmol/L (98-107); SODIUM 136 mmol/L (132-148)
[2017-03-06 08:32] LABS: POTASSIUM 4.5 mmol/L (3.6-5.2)
[2017-03-06 08:34] LABS: ALKALINE PHOSPHATASE 73 U/L (38-126); ALT/SGPT 23 U/L (9-52); AST/SGOT 17 U/L (14-36); BILIRUBIN,TOTAL 0.9 mg/dL (0.2-1.3); BLOOD UREA NITROGEN 20 mg/dL (7-17); CARBON DIOXIDE 37 mmol/L (22-30); GFR AFRICAN-AMERICAN > 60; GLUCOSE,RANDOM 74 mg/dL (65-105); TOTAL PROTEIN 7.3 g/dL (6.3-8.3)
[2017-03-06 08:35] LABS: CALCIUM 9.1 mg/dl (8.6-10.4)
[2017-03-06] MEDS: Enoxaparin 40 mg Syringe SC SCH (11:22)
[2017-03-06] MEDS: Saccharomyces Boulardi 250 mg Cap PO SCH ×2 (11:22→17:20)
--- NOTE | 2017-03-06 12:59 | PCM.PYCHPN ---
Psychiatric Progress Note - Psychiatric Progress Note Patient seen today, length of contact: 16 min Patient Chief Complaint: "I'm better" Problems Identified/Issues Discussed: She is seen, chart reviewed. No wdw sxs today. Detox ended Sleep is better too No SI or AVH and no agitation, severe anxiety After care discussed - [facility] recommended Medication Change: No Medical Record Reviewed: Yes Mental Status Examination - Cognitive Function Orientation: Person, Place, Situation, Time Memory: Intact Attention: Poor Concentration: Poor Association: WNL Fund of Knowledge: Poor - Mood Mood: Anxious - Affect Affect: Constricted - Speech Speech: Appropriate - Formal Thought Process Formal Thought Process: No Impairment - Suicidal Ideation Suicidal Ideation: No - Homicidal Ideation Homicidal Ideation: No Goal/Treatment Plan - Goal/Treatment Plan Need for Continued Stay: Other (medical) Progress Toward Problem(s) and Goals/Treatment Plan: Methadone taper ended gabapentin for anxiety Seroquel for insomnia As needed medications Support and psychoeducation Refer to IOP
--- NOTE | 2017-03-06 13:11 | CP.PCM.PN ---
<Fortino Bowling - Last Filed: 03/06/17 13:11> Subjective - Date & Time of Evaluation Date of Evaluation: 03/06/17 Time of Evaluation: 07:45 - Subjective Subjective: PGY-1 Medicine Progress Note for Dr. Rea Patient seen and examined by bedside. Patient sitting up in bed comfortably. patient has no acute complaints today. Patient is tolerating diet. All medications are oral medications. Awaiting ECHO report. Denied fever/chills, cp , sob, palpitations, abd pain, n/v, incontinence. Objective - Vital Signs/Intake and Output Vital Signs (last 24 hours): Temp Pulse Resp BP Pulse Ox 97.6 F 86 20 113/63 95 03/06/17 00:00 03/06/17 00:00 03/06/17 00:00 03/06/17 00:00 03/06/17 00:00 Intake and Output: 03/06/17 03/06/17 06:59 18:59 Intake Total 550 Output Total 600 Balance -50 - Medications Medications: Current Medications Albuterol Sulfate (Albuterol 0.083% Inhal Jenny (2.5 Mg/3 Ml) Ud) 2.5 mg INH RQ2 PRN PRN Reason: Shortness of Breath Albuterol/Ipratropium (Duoneb 3 Mg/0.5 Mg (3 Ml) Ud) 3 ml INH RQ6 [facility] Last Admin: 03/06/17 07:37 Dose: Not Given Enoxaparin Sodium (Lovenox) 40 mg SC DAILY [facility] Last Admin: 03/06/17 11:22 Dose: Not Given Famotidine (Pepcid) 20 mg PO BID [facility] Last Admin: 03/06/17 11:21 Dose: 20 mg Gabapentin (Neurontin) 300 mg PO TID [facility] Last Admin: 03/06/17 11:21 Dose: 300 mg Montelukast Sodium (Singulair) 10 mg PO HS [facility] Last Admin: 03/05/17 21:03 Dose: 10 mg Prednisone (Prednisone Tab) 20 mg PO DAILY [facility] Last Admin: 03/06/17 11:21 Dose: 20 mg Quetiapine Fumarate (Seroquel) 100 mg PO HS [facility] Last Admin: 03/05/17 21:03 Dose: 100 mg Saccharomyces Boulardii (Florastor) 250 mg PO BID [facility] Last Admin: 03/06/17 11:22 Dose: 250 mg Trimethoprim/Sulfamethoxazole (Bactrim Ds Tab) 1 tab PO Q12H [facility] Last Admin: 03/06/17 05:44 Dose: 1 tab - Labs Labs: 03/06/17 08:11 03/06/17 08:11 - Constitutional Appears: No Acute Distress - Head Exam Head Exam: ATRAUMATIC, NORMOCEPHALIC - Eye Exam Eye Exam: EOMI, Normal appearance Pupil Exam: PERRL - ENT Exam ENT Exam: Mucous Membranes Moist - Respiratory Exam Respiratory Exam: Clear to Ausculation Bilateral, NORMAL BREATHING PATTERN - Cardiovascular Exam Cardiovascular Exam: REGULAR RHYTHM, +S1, +S2 - GI/Abdominal Exam GI & Abdominal Exam: Soft, Normal Bowel Sounds. absent: Tenderness - Extremities Exam Extremities Exam: Normal Capillary Refill - Back Exam Back Exam: absent: CVA tenderness (L), CVA tenderness (R) - Neurological Exam Neurological Exam: Alert, Awake, CN II-XII Intact, Normal Gait, Oriented x3 - Psychiatric Exam Psychiatric exam: Normal Affect, Normal Mood - Skin Skin Exam: Dry, Intact, Warm Assessment and Plan - Assessment and Plan (Free Text) Plan: 1) Heroin withdrawal Methadone taper finished Psych consult, Dr. Lord, help appreciated Monitor for withdrawal signs Geothermal Electrical Engineer referral: patient reports weight loss significant and attributes to drug use f/u ECHO report 2) Asthma with status asthmaticus CXR 03/01: lung morris remaining hyperinflated. Interstitial markings are increased and coarsened, somewhat more so compared to the prior exam. Few scattered peribronchial cuffing changes as well. Findings may represent sequela of reactive/inflammatory airway disease and or viral illness. Underlying interstitial infiltrates and/or fibrosis not excluded. CXR 03/02: coarsened interstitial markings. Hyperinflation. Duoneb 3ml INH Q6 scheduled Prednisone 20 mg PO daily Singular 10mg PO HS 3) Bilateral RUE cellulitis resolved Bactrim DS 1 tab PO bid for 5 days Florastor 250 mg PO BID f/u ECHO report Monitor area 4) Xanax dependence discontinued xanax gabapentin 100mg PO tid Seizure precautions 5) Depression/Anxiety Seroquel 50mg PO HS Gabapentin 100mg PO tid 6) Prophylactic Measures Lovenox 40mg SC daily Pepcid 20mg PO BID SCD b/l OOB Ensure enlive PO BID Regular diet <Yaw Rea H - Last Filed: 03/06/17 15:53> Objective - Vital Signs/Intake and Output Vital Signs (last 24 hours): Temp Pulse Resp BP Pulse Ox 97.6 F 86 20 113/63 95 03/06/17 00:00 03/06/17 00:00 03/06/17 00:00 03/06/17 00:00 03/06/17 00:00 Intake and Output: 03/06/17 03/06/17 06:59 18:59 Intake Total 550 Output Total 600 Balance -50 - Medications Medications: Current Medications Albuterol Sulfate (Albuterol 0.083% Inhal Jenny (2.5 Mg/3 Ml) Ud) 2.5 mg INH RQ2 PRN PRN Reason: Shortness of Breath Albuterol/Ipratropium (Duoneb 3 Mg/0.5 Mg (3 Ml) Ud) 3 ml INH RQ6 [facility] Last Admin: 03/06/17 13:16 Dose: Not Given Enoxaparin Sodium (Lovenox) 40 mg SC DAILY [facility] Last Admin: 03/06/17 11:22 Dose: Not Given Famotidine (Pepcid) 20 mg PO BID [facility] Last Admin: 03/06/17 11:21 Dose: 20 mg Gabapentin (Neurontin) 300 mg PO TID [facility] Last Admin: 03/06/17 11:21 Dose: 300 mg Montelukast Sodium (Singulair) 10 mg PO [facility] Last Admin: 03/05/17 21:03 Dose: 10 mg Prednisone (Prednisone Tab) 20 mg PO DAILY [facility] Last Admin: 03/06/17 11:21 Dose: 20 mg Quetiapine Fumarate (Seroquel) 100 mg PO [facility] Last Admin: 03/05/17 21:03 Dose: 100 mg Saccharomyces Boulardii (Florastor) 250 mg PO BID [facility] Last Admin: 03/06/17 11:22 Dose: 250 mg Trimethoprim/Sulfamethoxazole (Bactrim Ds Tab) 1 tab PO Q12H [facility] Last Admin: 03/06/17 05:44 Dose: 1 tab - Labs Labs: 03/06/17 08:11 03/06/17 08:11 Attending/Attestation - Attestation I have personally seen and examined this patient.: Yes I have fully participated in the care of the patient.: Yes I have reviewed all pertinent clinical information, including history, physical exam and plan: Yes Notes (Text): 03/06/17 15:52 Medical attending: Patient was seen and examined by me, agrees the above note by medical chemist. Today the patient reported her breathing was stable. She did not report fever or chills. She is able to walk in her room without assistance. She is eating better as well. Currently waiting on echo to be completed, if this is ok then will try to discharge patient. thank you Yaw Rea
[2017-03-07] MEDS: Albuterol-Ipratrop 3 mg / 0.5 (3 ml) UD INH SCH (03:08)
[2017-03-07] MEDS: Tmp-Smz 800 mg-160 mg DS Tab PO SCH (05:30)
[2017-03-07] MEDS: Saccharomyces Boulardi 250 mg Cap PO SCH (10:47)
[2017-03-07] MEDS: Enoxaparin 40 mg Syringe SC SCH (10:47)
--- NOTE | 2017-03-07 11:52 | CP.PCM.DIS ---
<Fortino Bowling - Last Filed: 04/23/17 14:13> Provider - Provider Date of Admission: 03/01/17 16:43 Attending physician: Silvio Zarate MD Consults: ICU Psych Time Spent in preparation of Discharge (in minutes): 40 Diagnosis - Discharge Diagnosis (1) Asthma exacerbation Status: Acute (2) Heroin withdrawal Status: Acute Hospital Course - Lab Results Lab Results: Micro Results 03/02/17 01:30 Nose MRSA Culture (Admit) - Final MRSA NOT DETECTED Most Recent Lab Values WBC 7.1 K/uL (4.8-10.8) 03/06/17 08:11 RBC 6.85 Mil/uL (3.80-5.20) H 03/06/17 08:11 Hgb 16.0 g/dL (11.0-16.0) D 03/06/17 08:11 Hct 49.8 % (34.0-47.0) H 03/06/17 08:11 MCV 72.7 fL (81.0-99.0) L 03/06/17 08:11 MCH 23.4 pg (27.0-31.0) L 03/06/17 08:11 MCHC 32.2 g/dL (33.0-37.0) L 03/06/17 08:11 RDW 19.5 % (11.5-14.5) H 03/06/17 08:11 Plt Count 230 K/uL (130-400) 03/06/17 08:11 MPV 8.9 fL (7.2-11.7) 03/06/17 08:11 Neut % (Auto) 75.7 % (50.0-75.0) H 03/06/17 08:11 Lymph % (Auto) 14.7 % (20.0-40.0) L 03/06/17 08:11 [place] % (Auto) 9.1 % (0.0-10.0) 03/06/17 08:11 Eos % (Auto) 0.1 % (0.0-4.0) 03/06/17 08:11 Baso % (Auto) 0.4 % (0.0-2.0) 03/06/17 08:11 Neut # 5.4 K/uL (1.8-7.0) 03/06/17 08:11 Lymph # 1.0 K/uL (1.0-4.3) 03/06/17 08:11 [place] # 0.7 K/uL (0.0-0.8) 03/06/17 08:11 Eos # 0.0 K/uL (0.0-0.7) 03/06/17 08:11 Baso # 0.0 K/uL (0.0-0.2) 03/06/17 08:11 Neutrophils % (Manual) 87 % (50-75) H 03/04/17 06:41 Band Neutrophils % 2 % (0-2) 03/04/17 06:41 Lymphocytes % (Manual) 7 % (20-40) L 03/04/17 06:41 Monocytes % (Manual) 4 % (0-10) 03/04/17 06:41 Toxic Granulation Present 03/02/17 06:21 Platelet Estimate Normal (NORMAL) 03/04/17 06:41 Large Platelets Present 03/02/17 06:21 Giant Platelets Present 03/02/17 06:21 Polychromasia Slight 03/04/17 06:41 Hypochromasia (manual) Slight 03/04/17 06:41 Anisocytosis (manual) Slight 03/04/17 06:41 Microcytosis (manual) Slight 03/04/17 06:41 Target Cells Slight 03/04/17 06:41 Retic Count 1.9 % (0.5-1.5) H 03/02/17 06:21 Haptoglobin 191 mg/dL (43-212) 03/02/17 09:43 Puncture Site Rr 03/04/17 05:28 pCO2 68 mm/Hg (35-45) H 03/04/17 05:28 pO2 119 mm/Hg (80-100) H 03/04/17 05:28 HCO3 32.7 mmol/L (21-28) H 03/04/17 05:28 ABG pH 7.36 (7.35-7.45) 03/04/17 05:28 ABG Total CO2 40.5 mmol/L (22-28) H 03/04/17 05:28 ABG O2 Saturation 99.5 % (95-98) H 03/04/17 05:28 ABG Base Excess 10.0 mmol/L (-2.0-3.0) H 03/04/17 05:28 ABG Hemoglobin 14.2 g/dL (11.7-17.4) 03/04/17 05:28 ABG Carboxyhemoglobin 2.2 % (0.5-1.5) H 03/04/17 05:28 POC ABG HHb (Measured) 0.5 % (0.0-5.0) 03/04/17 05:28 ABG Methemoglobin 1.2 % (0.0-3.0) 03/04/17 05:28 Clive Test Pos 03/04/17 05:28 ABG Potassium 3.7 mmol/L (3.6-5.2) 03/01/17 22:25 A-a O2 Difference 153.0 mm/Hg 03/04/17 05:28 Respiratory Index 1.3 03/04/17 05:28 Hgb O2 Saturation 96.1 % (95.0-98.0) 03/04/17 05:28 Sodium 138.0 mmol/l (132-148) 03/01/17 22:25 Chloride 104.0 mmol/L (98-107) 03/01/17 22:25 Glucose 114 mg/dl (65-105) H 03/01/17 22:25 Lactate 1.8 mmol/L (0.7-2.1) 03/01/17 22:25 Liter Flow 17.0 03/04/17 05:28 FiO2 50.0 % 03/04/17 05:28 Inspiratory BiPAP 10 03/02/17 04:20 Expiratory BiPAP 5 03/02/17 04:20 Crit Value Called To Shari castano/travel rn or 03/02/17 04:20 Crit Value Called By José de anda/rt 03/02/17 04:20 Crit Value Read Back Y 03/02/17 04:20 Blood Gas Notified Time 440 03/02/17 04:20 Sodium 136 mmol/L (132-148) 03/06/17 08:11 Potassium 4.5 mmol/L (3.6-5.2) 03/06/17 08:11 Chloride 90 mmol/L (98-107) L 03/06/17 08:11 Carbon Dioxide 37 mmol/L (22-30) H 03/06/17 08:11 Anion Gap 14 (10-20) 03/06/17 08:11 BUN 20 mg/dL (7-17) H 03/06/17 08:11 Creatinine 0.8 MG/DL (0.7-1.2) 03/06/17 08:11 Est GFR ( Amer) > 60 03/06/17 08:11 Est GFR (Non-Af Amer) > 60 03/06/17 08:11 Random Glucose 74 mg/dL (65-105) 03/06/17 08:11 Calcium 9.1 mg/dl (8.6-10.4) 03/06/17 08:11 Phosphorus 3.3 mg/dL (2.5-4.5) 03/04/17 06:36 Magnesium 1.9 mg/dL (1.6-2.3) 03/04/17 06:36 Iron 36 ug/dL (37-170) L 03/02/17 06:21 TIBC 315 ug/dL (250-450) 03/02/17 06:21 % Saturation 11 (20-55) L 03/02/17 06:21 Transferrin 244.07 mg/dL (206-381) 03/02/17 06:21 Ferritin 12.8 ng/mL 03/02/17 06:21 Total Bilirubin 0.9 mg/dL (0.2-1.3) 03/06/17 08:11 AST 17 U/L (14-36) 03/06/17 08:11 ALT 23 U/L (9-52) 03/06/17 08:11 Alkaline Phosphatase 73 U/L (38-126) 03/06/17 08:11 Total Protein 7.3 g/dL (6.3-8.3) 03/06/17 08:11 Albumin 3.7 g/dL (3.5-5.0) 03/06/17 08:11 Globulin 3.6 gm/dL (2.2-3.9) 03/06/17 08:11 Albumin/Globulin Ratio 1.0 (1.0-2.1) 03/06/17 08:11 Vitamin B12 887 pg/mL (239-931) 03/02/17 06:21 Folate 18.6 ng/mL 03/02/17 06:21 Arterial Blood Potassium 3.7 mmol/L (3.6-5.2) 03/01/17 22:25 Urine Color Yellow (YELLOW) 03/01/17 19:38 Urine Clarity Hazy (Clear) 03/01/17 19:38 Urine pH 6.0 (5.0-8.0) 03/01/17 19:38 Ur Specific [place] 1.017 (1.003-1.030) 03/01/17 19:38 Urine Protein Negative mg/dL (NEGATIVE) 03/01/17 19:38 Urine Glucose (UA) Normal mg/dL (Normal) 03/01/17 19:38 Urine Ketones Negative mg/dL (NEGATIVE) 03/01/17 19:38 Urine Blood Negative (NEGATIVE) 03/01/17 19:38 Urine Nitrate Negative (NEGATIVE) 03/01/17 19:38 Urine Bilirubin Negative (NEGATIVE) 03/01/17 19:38 Urine Urobilinogen 2.0 mg/dL (0.2-1.0) H 03/01/17 19:38 Ur Leukocyte Esterase Trace [place]/uL (Negative) 03/01/17 19:38 Urine WBC (Auto) 12 /hpf (0-5) H 03/01/17 19:38 Urine RBC (Auto) 1 /hpf (0-3) 03/01/17 19:38 Ur Squamous Epith Cells 4 /hpf (0-5) 03/01/17 19:38 Urine Bacteria Rare (<OCC) 03/01/17 19:38 Urine HCG, Qual Negative (NEGATIVE) 03/01/17 19:38 Stool Occult Blood Negative (NEGATIVE) 03/04/17 07:07 Stool Leukocytes, Qual Negative (NEGATIVE) 03/06/17 14:00 Vancomycin Trough 11.8 ug/mL (5.0-10.0) H 03/03/17 06:27 Urine Opiates Screen Positive (NEGATIVE) 03/01/17 19:38 Urine Methadone Screen Positive (NEGATIVE) 03/01/17 19:38 Ur Barbiturates Screen Negative (NEGATIVE) 03/01/17 19:38 Ur Phencyclidine Scrn Negative (NEGATIVE) 03/01/17 19:38 Ur Amphetamines Screen Negative (NEGATIVE) 03/01/17 19:38 U Benzodiazepines Scrn Positive (NEGATIVE) 03/01/17 19:38 U Oth Cocaine Metabols Negative (NEGATIVE) 03/01/17 19:38 U Cannabinoids Screen Negative (NEGATIVE) 03/01/17 19:38 Alcohol, Quantitative < 10 mg/dl (0-10) 03/01/17 15:31 C. difficile Ag & Toxin Negative (NEGATIVE) 03/06/17 14:00 Hepatitis A IgM Ab Negative (NEGATIVE) 03/02/17 06:21 Hep Bs Antigen Negative (NEGATIVE) 03/02/17 06:21 Hep B Core IgM Ab Negative (NEGATIVE) 03/02/17 06:21 Hepatitis C Antibody Negative (NEGATIVE) 03/02/17 06:21 HIV 1&2 Antibody Screen Negative (NEGATIVE) 03/03/17 06:27 - Hospital Course Hospital Course: 26 year old homeless female with PMHx of asthma and heroin abuse presents to ED with complaints of shortness of breath and wheezing for 2 weeks. Patient reports she ran out of her albuterol inhaler 2 weeks ago and her symptoms have been present since then but they worsened this morning and was brought in by her mother. Patient states she usually uses the albuterol inhaler 5 to 6 times/ day and Advair 4 times a day. She reported beinh short of breath and having a lot of anxiety and she complained of abdominal pain. Patient also reported a history of IV heroin use [6 to 8 bags/day] and the last time she used was the day before admission. She denied any other drug use and reported no longer smoking cigarettes. Patient also reported some RLQ abdominal pain but denied any nausea or vomiting or any bowel/bladder complaints. Patient denied any fever , chills, chest pain, palpitations, cough, back pain, easy bruising, easy bleeding, weight changes, appetite changes. Patient denied any recent travel or sick contacts. Patient was admitted for Asthma exacerbation. She was sent to ICU. Initial CXR showed lung fileds remaining hyperinflated. Interstitial markings are increased and coarsened, somewhat more so compared to the prior exam. Few scattered peribronchial cuffing changes as well. Findings may represent sequela of reactive/inflammatory airway disease and or viral illness. Underlying interstitial infiltrates and/or fibrosis not excluded (see full report). Patient was started on breathing treatments, steroids, IV abx, and IV fluids. Psych was consulted for Heroin abuse/withdrawal. They ordered methadone PRN. Patint spent two days in ICU before being downgraded to floors. Patient remained on same medical regimen for 4 more days before being discharged on 03/07. At that time, patient was deemed medically stable by Dr. Rea for discharge to home. Patient was instructed to stop using drugs and to fill her prescription to keep asthma under control. (This is a summary of the hospital course. Please refer to EMR for more specific details.) Discharge Exam - Head Exam Head Exam: ATRAUMATIC, NORMOCEPHALIC Discharge Plan - Discharge Medications Prescriptions: Fluticasone/Salmeterol 250/50 [Advair Diskus 250/50] 2 puff INH QID #30 puff Albuterol 0.083% [Albuterol 0.083% Inhal Jenny (2.5 mg/3 ml) UD] 2.5 mg INH RQ2 PRN #100 neb PRN Reason: Shortness Of Breath Albuterol/Ipratropium [Combivent Respimat] 1 puff IH QID #1 inhaler Montelukast [Singulair] 10 mg PO HS #30 tab - Follow Up Plan Condition: FAIR Disposition: HOME/ ROUTINE Instructions: Albuterol (By breathing), Ipratropium/Albuterol (By breathing), Montelukast (By mouth), Fluticasone/Salmeterol (By breathing), Asthma (DC), Benzodiazepine Abuse (DC), Narcotic Abuse (DC) Additional Instructions: Patient medically stable for discharge to home by Dr. Rea. Patient to take new medication Singulair Advair diskus, Albuterol nebulizer, and combivent inhaler as directed. Patient is to follow up with PMD within 2-3 days of discharge. If she doesnt no have PMD, she can establish in [facility] in [facility]. Patient is to refrain from opioids, xanax, cocaine , or any other illicit drugs. Patient may resume physical activity as tolerated. Please return to ED if symptoms persist or condition worsens. All instructions stated above were discussed with patient in detail. He verbalized understanding and agreement Referrals: Holli Lord MD [Staff Provider] - Deena Hendricks MD [Staff Provider] - <Yaw Rea - Last Filed: 04/29/17 07:24> Provider - Provider Date of Admission: 03/01/17 16:43 Attending physician: Silvio Zarate MD Hospital Course - Lab Results Lab Results: Micro Results 03/06/17 14:00 Stool Ova and Parasite Concentrate Exam - Final 03/06/17 14:00 Stool Stool Culture - Final NO SALMONELLA, SHIGELLA OR CAMPYLOBACTER ISOLATED. 03/02/17 01:30 Nose MRSA Culture (Admit) - Final MRSA NOT DETECTED Most Recent Lab Values WBC 7.1 K/uL (4.8-10.8) 03/06/17 08:11 RBC 6.85 Mil/uL (3.80-5.20) H 03/06/17 08:11 Hgb 16.0 g/dL (11.0-16.0) D 03/06/17 08:11 Hct 49.8 % (34.0-47.0) H 03/06/17 08:11 MCV 72.7 fL (81.0-99.0) L 03/06/17 08:11 MCH 23.4 pg (27.0-31.0) L 03/06/17 08:11 MCHC 32.2 g/dL (33.0-37.0) L 03/06/17 08:11 RDW 19.5 % (11.5-14.5) H 03/06/17 08:11 Plt Count 230 K/uL (130-400) 03/06/17 08:11 MPV 8.9 fL (7.2-11.7) 03/06/17 08:11 Neut % (Auto) 75.7 % (50.0-75.0) H 03/06/17 08:11 Lymph % (Auto) 14.7 % (20.0-40.0) L 03/06/17 08:11 [place] % (Auto) 9.1 % (0.0-10.0) 03/06/17 08:11 Eos % (Auto) 0.1 % (0.0-4.0) 03/06/17 08:11 Baso % (Auto) 0.4 % (0.0-2.0) 03/06/17 08:11 Neut # 5.4 K/uL (1.8-7.0) 03/06/17 08:11 Lymph # 1.0 K/uL (1.0-4.3) 03/06/17 08:11 [place] # 0.7 K/uL (0.0-0.8) 03/06/17 08:11 Eos # 0.0 K/uL (0.0-0.7) 03/06/17 08:11 Baso # 0.0 K/uL (0.0-0.2) 03/06/17 08:11 Neutrophils % (Manual) 87 % (50-75) H 03/04/17 06:41 Band Neutrophils % 2 % (0-2) 03/04/17 06:41 Lymphocytes % (Manual) 7 % (20-40) L 03/04/17 06:41 Monocytes % (Manual) 4 % (0-10) 03/04/17 06:41 Toxic Granulation Present 03/02/17 06:21 Platelet Estimate Normal (NORMAL) 03/04/17 06:41 Large Platelets Present 03/02/17 06:21 Giant Platelets Present 03/02/17 06:21 Polychromasia Slight 03/04/17 06:41 Hypochromasia (manual) Slight 03/04/17 06:41 Anisocytosis (manual) Slight 03/04/17 06:41 Microcytosis (manual) Slight 03/04/17 06:41 Target Cells Slight 03/04/17 06:41 Retic Count 1.9 % (0.5-1.5) H 03/02/17 06:21 Haptoglobin 191 mg/dL (43-212) 03/02/17 09:43 Puncture Site Rr 03/04/17 05:28 pCO2 68 mm/Hg (35-45) H 03/04/17 05:28 pO2 119 mm/Hg (80-100) H 03/04/17 05:28 HCO3 32.7 mmol/L (21-28) H 03/04/17 05:28 ABG pH 7.36 (7.35-7.45) 03/04/17 05:28 ABG Total CO2 40.5 mmol/L (22-28) H 03/04/17 05:28 ABG O2 Saturation 99.5 % (95-98) H 03/04/17 05:28 ABG Base Excess 10.0 mmol/L (-2.0-3.0) H 03/04/17 05:28 ABG Hemoglobin 14.2 g/dL (11.7-17.4) 03/04/17 05:28 ABG Carboxyhemoglobin 2.2 % (0.5-1.5) H 03/04/17 05:28 POC ABG HHb (Measured) 0.5 % (0.0-5.0) 03/04/17 05:28 ABG Methemoglobin 1.2 % (0.0-3.0) 03/04/17 05:28 Clive Test Pos 03/04/17 05:28 ABG Potassium 3.7 mmol/L (3.6-5.2) 03/01/17 22:25 A-a O2 Difference 153.0 mm/Hg 03/04/17 05:28 Respiratory Index 1.3 03/04/17 05:28 Hgb O2 Saturation 96.1 % (95.0-98.0) 03/04/17 05:28 Sodium 138.0 mmol/l (132-148) 03/01/17 22:25 Chloride 104.0 mmol/L (98-107) 03/01/17 22:25 Glucose 114 mg/dl (65-105) H 03/01/17 22:25 Lactate 1.8 mmol/L (0.7-2.1) 03/01/17 22:25 Liter Flow 17.0 03/04/17 05:28 FiO2 50.0 % 03/04/17 05:28 Inspiratory BiPAP 10 03/02/17 04:20 Expiratory BiPAP 5 03/02/17 04:20 Crit Value Called To Shari castano/travel rn or 03/02/17 04:20 Crit Value Called By José de anda/rt 03/02/17 04:20 Crit Value Read Back Y 03/02/17 04:20 Blood Gas Notified Time 440 03/02/17 04:20 Sodium 136 mmol/L (132-148) 03/06/17 08:11 Potassium 4.5 mmol/L (3.6-5.2) 03/06/17 08:11 Chloride 90 mmol/L (98-107) L 03/06/17 08:11 Carbon Dioxide 37 mmol/L (22-30) H 03/06/17 08:11 Anion Gap 14 (10-20) 03/06/17 08:11 BUN 20 mg/dL (7-17) H 03/06/17 08:11 Creatinine 0.8 MG/DL (0.7-1.2) 03/06/17 08:11 Est GFR ( Amer) > 60 03/06/17 08:11 Est GFR (Non-Af Amer) > 60 03/06/17 08:11 Random Glucose 74 mg/dL (65-105) 03/06/17 08:11 Calcium 9.1 mg/dl (8.6-10.4) 03/06/17 08:11 Phosphorus 3.3 mg/dL (2.5-4.5) 03/04/17 06:36 Magnesium 1.9 mg/dL (1.6-2.3) 03/04/17 06:36 Iron 36 ug/dL (37-170) L 03/02/17 06:21 TIBC 315 ug/dL (250-450) 03/02/17 06:21 % Saturation 11 (20-55) L 03/02/17 06:21 Transferrin 244.07 mg/dL (206-381) 03/02/17 06:21 Ferritin 12.8 ng/mL 03/02/17 06:21 Total Bilirubin 0.9 mg/dL (0.2-1.3) 03/06/17 08:11 AST 17 U/L (14-36) 03/06/17 08:11 ALT 23 U/L (9-52) 03/06/17 08:11 Alkaline Phosphatase 73 U/L (38-126) 03/06/17 08:11 Total Protein 7.3 g/dL (6.3-8.3) 03/06/17 08:11 Albumin 3.7 g/dL (3.5-5.0) 03/06/17 08:11 Globulin 3.6 gm/dL (2.2-3.9) 03/06/17 08:11 Albumin/Globulin Ratio 1.0 (1.0-2.1) 03/06/17 08:11 Vitamin B12 887 pg/mL (239-931) 03/02/17 06:21 Folate 18.6 ng/mL 03/02/17 06:21 Arterial Blood Potassium 3.7 mmol/L (3.6-5.2) 03/01/17 22:25 Urine Color Yellow (YELLOW) 03/01/17 19:38 Urine Clarity Hazy (Clear) 03/01/17 19:38 Urine pH 6.0 (5.0-8.0) 03/01/17 19:38 Ur Specific [place] 1.017 (1.003-1.030) 03/01/17 19:38 Urine Protein Negative mg/dL (NEGATIVE) 03/01/17 19:38 Urine Glucose (UA) Normal mg/dL (Normal) 03/01/17 19:38 Urine Ketones Negative mg/dL (NEGATIVE) 03/01/17 19:38 Urine Blood Negative (NEGATIVE) 03/01/17 19:38 Urine Nitrate Negative (NEGATIVE) 03/01/17 19:38 Urine Bilirubin Negative (NEGATIVE) 03/01/17 19:38 Urine Urobilinogen 2.0 mg/dL (0.2-1.0) H 03/01/17 19:38 Ur Leukocyte Esterase Trace [place]/uL (Negative) 03/01/17 19:38 Urine WBC (Auto) 12 /hpf (0-5) H 03/01/17 19:38 Urine RBC (Auto) 1 /hpf (0-3) 03/01/17 19:38 Ur Squamous Epith Cells 4 /hpf (0-5) 03/01/17 19:38 Urine Bacteria Rare (<OCC) 03/01/17 19:38 Urine HCG, Qual Negative (NEGATIVE) 03/01/17 19:38 Stool Occult Blood Negative (NEGATIVE) 03/04/17 07:07 Stool Leukocytes, Qual Negative (NEGATIVE) 03/06/17 14:00 Vancomycin Trough 11.8 ug/mL (5.0-10.0) H 03/03/17 06:27 Urine Opiates Screen Positive (NEGATIVE) 03/01/17 19:38 Urine Methadone Screen Positive (NEGATIVE) 03/01/17 19:38 Ur Barbiturates Screen Negative (NEGATIVE) 03/01/17 19:38 Ur Phencyclidine Scrn Negative (NEGATIVE) 03/01/17 19:38 Ur Amphetamines Screen Negative (NEGATIVE) 03/01/17 19:38 U Benzodiazepines Scrn Positive (NEGATIVE) 03/01/17 19:38 U Oth Cocaine Metabols Negative (NEGATIVE) 03/01/17 19:38 U Cannabinoids Screen Negative (NEGATIVE) 03/01/17 19:38 Alcohol, Quantitative < 10 mg/dl (0-10) 03/01/17 15:31 C. difficile Ag & Toxin Negative (NEGATIVE) 03/06/17 14:00 Hepatitis A IgM Ab Negative (NEGATIVE) 03/02/17 06:21 Hep Bs Antigen Negative (NEGATIVE) 03/02/17 06:21 Hep B Core IgM Ab Negative (NEGATIVE) 03/02/17 06:21 Hepatitis C Antibody Negative (NEGATIVE) 03/02/17 06:21 HIV 1&2 Antibody Screen Negative (NEGATIVE) 03/03/17 06:27 Attending/Attestation - Attestation I have personally seen and examined this patient.: Yes I have fully participated in the care of the patient.: Yes I have reviewed all pertinent clinical information, including history, physical exam and plan: Yes
[2017-03-07 17:06] VITALS: BP 104/62; PULSE 96; TEMP 98.5; O2SAT 96
--- NOTE | 2017-03-08 14:17 | CARD ---
APPROVED REPORT EKG Measurement Heart [id number] <Conclusion> Sinus tachycardia Biatrial enlargement T wave abnormality, consider anterior ischemia Abnormal ECG
--- NOTE | 2017-03-11 08:23 | CARD ---
APPROVED REPORT EXAM: Two-dimensional and M-mode echocardiogram with Doppler and color Doppler. Other Information Quality : GoodRhythm : NSR INDICATION Chest Pain HEROINE ABUSE M-Mode DIMENSIONS RVDd2.26 (2.1-3.2cm)Left Atrium (MM)3.40 (2.5-4.0cm) IVSd1.70 (0.7-1.1cm)Aortic Root2.49 (2.2-3.7cm) LVDd3.64 (4.0-5.6cm)Aortic Cusp Exc.1.88 (1.5-2.0cm) PWd1.21 (0.7-1.1cm)FS (%) 47 % LVDs1.94 (2.0-3.8cm)LVEF (%)79 (>50%) Mitral Valve MV E Dckimuyr162.5cm/sMV A Hrrtuxgj67.4cm/sE/A ratio1.5 TDI E/Lateral E'0.0E/Medial E'0.0 Tricuspid Valve TR Peak Otscrfqq350km/sTR Peak Gr.[id number] LEFT VENTRICLE The left ventricle is normal size. There is normal left ventricular wall thickness. The left ventricular function is normal. The left ventricular ejection fraction is within the normal range. No regional wall motion abnormalities noted. The left ventricular diastolic function is normal. No left ventricle thrombus noted on this study. There is no ventricular septal defect visualized. There is no left ventricular aneurysm. There is no mass noted in the left ventricle. RIGHT VENTRICLE The right ventricle is normal size. There is normal right ventricular wall thickness. The right ventricular systolic function is normal. ATRIA The left atrium size is normal. The right atrium size is normal. The interatrial septum is intact with no evidence for an atrial septal defect. AORTIC VALVE The aortic valve is normal in structure and function. No aortic regurgitation is present. There is no aortic valvular stenosis. There is no aortic valvular vegetation. MITRAL VALVE The mitral valve is normal in structure and function. There is no evidence of mitral valve prolapse. There is no mitral valve stenosis. There is no mitral valve regurgitation noted. TRICUSPID VALVE The tricuspid valve is normal in structure and function. There is trace to mild tricuspid regurgitation. Right ventricular systolic pressure is estimated at 30-40 mmHg. There is mild pulmonary hypertension. There is no tricuspid valve prolapse or vegetation. There is no tricuspid valve stenosis. PULMONIC VALVE The pulmonary valve is normal in structure and function. There is no pulmonic valvular regurgitation. There is no pulmonic valvular stenosis. GREAT VESSELS The aortic root is normal in size. The ascending aorta is normal in size. The pulmonary artery is normal. The IVC is normal in size and collapses >50% with inspiration. PERICARDIAL EFFUSION The pericardium appears normal. There is no pleural effusion. <Conclusion> There is normal left ventricular wall thickness. The left ventricular ejection fraction is within the normal range. There is trace to mild tricuspid regurgitation. Right ventricular systolic pressure is estimated at 30-40 mmHg.
== END 2017-03-07 17:05 | disposition home or self-care (01) | DRG 588 ==
LOC: C.ER 14:58 → C.9E 16:43 → OBSVTOIN 16:43 → C.6T 22:01 → C.9E 22:39 → C.9I 23:12 → C.5T 03-04 21:54
PROVIDERS: ADMIT Internal Medicine; ATTEND Internal Medicine
PROC: HZ2ZZZZ Detoxification Services for Substance Abuse Treatment (ICD-10-PCS; principal; 2017-03-01)
PROC: HZ81ZZZ Medication Management for Substance Abuse Treatment, Methadone Maintenance (ICD-10-PCS; 2017-03-01)
DX: J45.902 Unspecified asthma with status asthmaticus (principal); J96.91 Respiratory failure, unspecified with hypoxia; F11.23 Opioid dependence with withdrawal; E87.2 Acidosis; F13.20 Sedative, hypnotic or anxiolytic dependence, uncomplicated; L03.113 Cellulitis of right upper limb; T50.901A Poisoning by unspecified drugs, medicaments and biological substances, accidental (unintentional), initial encounter; F41.9 Anxiety disorder, unspecified; F32.9 Major depressive disorder, single episode, unspecified; G47.00 Insomnia, unspecified; Z59.0 Homelessness; Z87.891 Personal history of nicotine dependence

== ENCOUNTER 2017-04-14 07:38 | Observation (INO) | payer OTHER ==
[2017-04-14 07:38] VITALS: BMI 17.9
[2017-04-14] MEDS ORDERED: Albuterol-Ipratrop 3 mg / 0.5 (3 ml) UD ONE ×2 (07:42→08:02)
[2017-04-14] MEDS ORDERED: Albuterol-Ipratrop 3 mg / 0.5 (3 ml) UD INH STA (07:45)
--- NOTE | 2017-04-14 07:57 | C.PDOC ---
History Of Present Illness 27-year-old female, PMHx includes Asthma and Substance Abuse, presents to the emergency department with complaints of shortness of breath, that started last night. Patient has been seen in ED multiple times in the past for asthma. States she ran out of her Albuterol. Denies fevers, or any other complaints. Time Seen by Provider: 04/14/17 07:46 Chief Complaint (Nursing): Respiratory Distress History Per: Patient History/Exam Limitations: no limitations Past Medical History Reviewed: Historical Data, Nursing Documentation, Vital Signs Vital Signs: Last Vital Signs Temp 98 F 04/14/17 10:22 Pulse 95 H 04/14/17 10:22 Resp 19 04/14/17 10:23 BP 113/68 04/14/17 10:22 Pulse Ox 98 04/14/17 07:50 - Medical History PMH: Anxiety, Asthma Denies: Chronic Kidney Disease - [facility] Procedures CONTINUOUS INVASIVE MECHANICAL VENTILATION <96 CONSEC HRS (12/16/13) DETOXIFICATION SERVICES FOR SUBSTANCE ABUSE TREATMENT (03/01/17) INSERT ENDOTRACHEAL TUBE (12/16/13) MEDS MGMT FOR SUBSTANCE ABUSE TREATMENT, METHADONE MAINT (03/01/17) OTHER SKIN & SUBQ I D (06/14/13) TETANUS TOXOID ADMINIST (06/14/13) Family History: States: No Known Family Hx - Social History Hx Tobacco Use: (UNKNOWN) Hx Alcohol Use: No Hx Substance Use: Yes (IV heroin, Methadone and Xanax) - Immunization History Hx Tetanus Toxoid Vaccination: No Hx Influenza Vaccination: No Hx Pneumococcal Vaccination: No Review Of Systems Except As Marked, All Systems Reviewed And Found Negative. Constitutional: Negative for: Fever Cardiovascular: Negative for: Chest Pain, Palpitations Respiratory: Positive for: Shortness of Breath Gastrointestinal: Negative for: Nausea, Vomiting Skin: Negative for: Rash Neurological: Negative for: Weakness, Numbness Physical Exam - Physical Exam Appears: Non-toxic, No Acute Distress Skin: Warm, Dry, No Rash Head: Atraumatic Eye(s): bilateral: Normal Inspection Nose: Normal Oral Mucosa: Moist Lips: Normal Appearing Neck: Normal ROM Cardiovascular: Rhythm Regular, No Murmur Respiratory: No Accessory Muscle Use, Wheezing (diffuse expiratory) Extremity: Normal ROM Neurological/Psych: Oriented x3 ED Course And Treatment - Laboratory Results Result Diagrams: 04/14/17 08:30 04/14/17 08:30 Medical Decision Making Medical Decision Making: asthma exacerbation - r/o pna- labs imaging pending 1000: pt with persistent wheezing, peak flow 100's. will admit. dr evangelista accepts Disposition - Disposition Disposition: HOSPITALIZED Disposition Time: 10:37 Condition: STABLE - Clinical Impression Clinical Impression: Asthma - Scribe Statement The provider has reviewed the documentation as recorded by the Ottoniel Vogt All medical record entries made by the Huberibkings were at my direction and personally dictated by me. I have reviewed the chart and agree that the record accurately reflects my personal performance of the history, physical exam, medical decision making, and the department course for this patient. I have also personally directed, reviewed, and agree with the discharge instructions and disposition. Decision To Admit - Pt Status Changed To: Hospital Disposition Of: Inpatient - Admit Certification Admit to Inpatient:: After my assessment, the patient will require hospitalization for at least two midnights. This is because of the severity of symptoms shown, intensity of services needed, and/or the medical risk in this patient being treated as an outpatient. - InPatient: Physician Admission Certification: I certify that this patient requires 2 or more midnights of care for the following reason:: pt with asthma exacerbation, persistent wheezing, peak flow low in er. needs iv steriods - . Bed Request Type: Telemetry Patient Diagnosis: Asthma
[2017-04-14] MEDS: Albuterol-Ipratrop 3 mg / 0.5 (3 ml) UD IH SCH ×2 (08:15→08:30)
--- NOTE | 2017-04-14 08:39 | RAD ---
PROCEDURE: CHEST RADIOGRAPH, 1 VIEW. Portable study 07:50. HISTORY: SOB COMPARISON: 03/02/2017. FINDINGS: LUNGS: Stable increased interstitial markings without discrete infiltrates/focal abnormality. PLEURA: No pneumothorax or pleural fluid seen. CARDIOVASCULAR: Normal. OSSEOUS STRUCTURES: No significant abnormalities. VISUALIZED UPPER ABDOMEN: Normal. OTHER FINDINGS: None. IMPRESSION: No active disease. No acute/significant interval changes.
[2017-04-14 08:53] LABS: BASO # 0.1 K/uL (0.0-0.2); BASO % 0.8 % (0.0-2.0); EOS # 2.9 K/uL (0.0-0.7); EOS % 34.8 % (0.0-4.0); HEMATOCRIT 47.4 % (34.0-47.0); LYMPH # 1.3 K/uL (1.0-4.3); LYMPH % 15.6 % (20.0-40.0); MEAN CELL VOLUME 76.2 fL (81.0-99.0); MEAN CORPUSCULAR HEMOGLOBIN 25.1 pg (27.0-31.0); MEAN CORPUSCULAR HGB CONC 32.9 g/dL (33.0-37.0); MEAN PLATELET VOLUME 9.1 fL (7.2-11.7); MONO # 0.4 K/uL (0.0-0.8); MONO % 4.8 % (0.0-10.0); NRBC % 0.2 % (0.0-2.0); PLATELET COUNT 206 K/uL (130-400); RED CELL DISTRIBUTION WIDTH 21.2 % (11.5-14.5); WHITE BLOOD COUNT 8.5 K/uL (4.8-10.8)
[2017-04-14 09:08] LABS: CHLORIDE 94 mmol/L (98-107); SODIUM 139 mmol/L (132-148)
[2017-04-14 09:09] LABS: POTASSIUM 4.4 mmol/L (3.6-5.2)
[2017-04-14 09:11] LABS: ALB/GLOB RATIO 1.1 (1.0-2.1); ALKALINE PHOSPHATASE 102 U/L (38-126); AST/SGOT 26 U/L (14-36); BLOOD UREA NITROGEN 6 mg/dL (7-17); CARBON DIOXIDE 35 mmol/L (22-30); GFR AFRICAN-AMERICAN > 60
[2017-04-14 09:12] LABS: ALT/SGPT 16 U/L (9-52); GLUCOSE,RANDOM 104 mg/dL (65-105)
[2017-04-14 09:55] LABS: BASOPHIL 1 % (0-2); EOSINOPHIL 33 % (0-4); NEUTROPHIL 50 % (50-75); TOTAL CELLS COUNTED 100
[2017-04-14] MEDS ORDERED: Magnesium Sulfate 1 gm in D5W 1 GM/100 ML BAG IVPB ONE ×2 (10:01→11:10)
[2017-04-14 10:19] LABS: LARGE PLATELETS PRESENT
[2017-04-14 10:20] LABS: GIANT PLATELETS PRESENT
[2017-04-14] MEDS: Magnesium Sulfate 1 gm in D5W 1 GM/100 ML BAG IVPB SCH ×2 (10:20→11:13)
[2017-04-14 10:45] LABS: RBC URINE 1 /hpf (0-3); URINE BACTERIA RARE (<OCC); URINE BILIRUBIN NEGATIVE (NEGATIVE); URINE BLOOD NEGATIVE (NEGATIVE); URINE COLOR Yellow (YELLOW); URINE GLUCOSE (UA) NORMAL (Normal); URINE KETONE NEGATIVE (NEGATIVE); URINE LEUKOCYTE ESTERASE TRACE Leu/uL (Negative); URINE PROTEIN NEGATIVE (NEGATIVE); URINE UROBILINOGEN NORMAL mg/dL (0.2-1.0); WBC URINE 3 /hpf (0-5)
--- NOTE | 2017-04-14 10:45 | CP.PCM.HP ---
<Tika Tapia - Last Filed: 04/14/17 12:06> History of Present Illness - History of Present Illness History of Present Illness: CC: " shortness of breath" 26 year old female with PMHx of asthma and heroin abuse presented to ED complaining of shortness of breath and wheezing for 1 day. Admits SOB became progressively worse since yesterday and she decided to come in for evaluation. Admits to taking albuterol inhaler around the clock and every day. She also takes Singulair daily. Admits to using IV heroin use [6 to 8 bags/day] and the last time she used was the day before admission. She denied any other drug use and reported no longer smoking cigarettes. Patient also reported some RLQ abdominal pain but denied any nausea or vomiting or any bowel/bladder complaints. Patient denied any fever, chills, chest pain, palpitations, cough, back pain, easy bruising, easy bleeding, weight changes, appetite changes. Patient denied any recent travel or sick contacts. PMHx: asthma Meds: Ventolin, Singulair ALL: NKDA/ shrimp PSHx: FamHx: denies SocHx: homeless, used to smoke 1/2 ppd from when she was 10yo to 20yo. Denies alcohol use. Patient injects 10 bags of heroin/day. Last dose 2 am today. PMD: Dr. Arceo Present on Admission - Present on Admission Any Indicators Present on Admission: No Review of Systems - Constitutional Constitutional: absent: Fatigue, Fever, Headache - EENT Eyes: absent: Blurred Vision, Change in Vision - Cardiovascular Cardiovascular: Dyspnea, Palpitations. absent: Chest Pain, Chest Pain at Rest, Chest Pain with Activity, Diaphoresis, Edema - Respiratory Respiratory: Cough, Dyspnea, Dyspnea on Exertion, Wheezing - Gastrointestinal Gastrointestinal: absent: Abdominal Pain, Constipation, Diarrhea, Nausea, Vomiting - Genitourinary Genitourinary: absent: Difficulty Urinating, Dysuria - Musculoskeletal Musculoskeletal: absent: Back Pain, Myalgias, Numbness, Tingling - Neurological Neurological: absent: Dizziness, Numbness, Headaches, Syncope, Tingling, Tremor , Weakness - Endocrine Endocrine: Palpitations. absent: Fatigue Past Patient History - Infectious Disease Hx of Infectious Diseases: None - Past Medical History & Family History Past Medical History?: Yes - Past Social History Smoking Status: Former Smoker - CARDIAC Hx Cardiac Disorders: No - PULMONARY Hx Asthma: Yes - NEUROLOGICAL Hx Neurological Disorder: No - HEENT Hx HEENT Problems: No - RENAL Hx Chronic Kidney Disease: No - ENDOCRINE/METABOLIC Hx Endocrine Disorders: No - HEMATOLOGICAL/ONCOLOGICAL Hx Blood Disorders: No - INTEGUMENTARY Hx Dermatological Problems: No - MUSCULOSKELETAL/RHEUMATOLOGICAL Hx Musculoskeletal Disorders: No Hx Falls: No - GASTROINTESTINAL Hx Gastrointestinal Disorders: No - GENITOURINARY/GYNECOLOGICAL Hx Genitourinary Disorders: No - PSYCHIATRIC Hx Anxiety: Yes Hx Substance Use: Yes (IV heroin, Methadone and Xanax) - SURGICAL HISTORY Hx Surgeries: Yes Hx Section: Yes (X2) - ANESTHESIA Hx Anesthesia: Yes Hx Anesthesia Reactions: No Hx Malignant Hyperthermia: No Meds Allergies/Adverse Reactions: Allergies Allergy/AdvReac Type Severity Reaction Status Date / Time shrimp Allergy Severe ITCHING Verified 10/13/16 18:35 Physical Exam - Constitutional Appears: No Acute Distress, Chronically Ill - Head Exam Head Exam: NORMAL INSPECTION, NORMOCEPHALIC - Eye Exam Eye Exam: EOMI, Normal appearance - ENT Exam ENT Exam: Mucous Membranes Moist - Neck Exam Neck exam: Positive for: Full Rom, Normal Inspection - Respiratory Exam Respiratory Exam: Clear to Auscultation Bilateral, NORMAL BREATHING PATTERN - Cardiovascular Exam Cardiovascular Exam: REGULAR RHYTHM, +S1, +S2 - GI/Abdominal Exam GI & Abdominal Exam: Normal Bowel Sounds, Soft. absent: Distended, Tenderness - Extremities Exam Extremities exam: Positive for: full ROM, normal inspection. Negative for: pedal edema, tenderness - Back Exam Back exam: NORMAL INSPECTION - Neurological Exam Neurological exam: Alert, Oriented x3 - Psychiatric Exam Psychiatric exam: Normal Affect, Normal Mood - Skin Skin Exam: Dry, Normal Color Additional comments: +injection wright +skin discolored on back Results - Vital Signs Recent Vital Signs: Last Vital Signs Temp 98 F 04/14/17 10:22 Pulse 95 H 04/14/17 10:22 Resp 19 04/14/17 10:23 BP 113/68 04/14/17 10:22 Pulse Ox 98 04/14/17 07:50 - Labs Result Diagrams: 04/14/17 08:30 04/14/17 08:30 Labs: Laboratory Results - last 24 hr 04/14/17 10:12 Magnesium 1.8 Assessment & Plan (1) Asthma exacerbation Assessment and Plan: Duoneb 3ml INH Q6 [facility] Solumedrol 40mg IVP Q6H Singulair 10mg PO HS Monitor PFTs CXR on admission shows no active disease. Status: Acute (2) Heroin abuse Assessment and Plan: Detox team consulted- Dr. Rose- help appreciated. Clonidine 0.1 BID for symptoms of withdrawal. No Methadone as patient has QTc prolongation on EKG. Status: Acute (3) QT prolongation Assessment and Plan: EKG on admission shows 100 bpm NSR with QTc 518. Avoid medications that may prolong QTc. Repeat EKG in the AM Status: Acute (4) Prophylactic measure Assessment and Plan: Pepcid 20 mg PO BID SCDs and Ambulation. Status: Acute <Silvio Zarate M - Last Filed: 04/14/17 16:02> Results - Vital Signs Recent Vital Signs: Last Vital Signs Temp 98 F 04/14/17 10:22 Pulse 80 04/14/17 13:00 Resp 20 04/14/17 13:00 BP 113/68 04/14/17 10:22 Pulse Ox 95 04/14/17 13:00 - Labs Result Diagrams: 04/14/17 08:30 04/14/17 08:30 Labs: Laboratory Results - last 24 hr 04/14/17 04/14/17 10:12 10:21 Magnesium 1.8 Urine Color Yellow Urine Clarity Clear Urine pH 5.0 Ur Specific [place] 1.016 Urine Protein Negative Urine Glucose (UA) Normal Urine Ketones Negative Urine Blood Negative Urine Nitrate Negative Urine Bilirubin Negative Urine Urobilinogen Normal Ur Leukocyte Esterase Trace Urine WBC (Auto) 3 Urine RBC (Auto) 1 Ur Squamous Epith Cells 4 Urine Bacteria Rare Urine HCG, Qual Negative Attending/Attestation - Attestation I have personally seen and examined this patient.: Yes I have fully participated in the care of the patient.: Yes I have reviewed all pertinent clinical information: Yes Notes (Text): 04/14/17 16:00 Patient was seen and examined at bedside with the resident. Start on treatment for asthma exacerbation. On IV silumedrool and nebs Started on clonidine for heroin withdrawal Avoid meds that cause QT prolongation I discussed the plan of care with the resident and I agree with above history and physical and assessment/plan by the resident
[2017-04-14] MEDS: MethylPREDNISolone 40 mg Vial IVP SCH ×2 (14:06→19:53)
[2017-04-14] MEDS ORDERED: MethylPREDNISolone 40 mg Vial IVP SCH (16:00)
--- NOTE | 2017-04-14 17:49 | PCM.PSYCH ---
Initial Psychiatric Evaluation - Initial Psychiatric Evaluation Type of Admission: Voluntary Legal Status: Capacity Chief Complaint (in patient's own words): I'm here for the treatment of asthma. I also uses heroin. History of Present Illness and Precipitating Events: Patient is a 27 years old, single, unemployed, , female who was admitted on the medical floor for the treatment of asthma. I was called to [place] the patient because patient also has history of heroine use. Patient reported known psychiatric history. Reported she is using heroine. She started using heroine at the age of 6 his of age, she was using 12 bags daily IV, last used this morning to bags. Prior to this patient use 10 bags of harrowing yesterday. Denied use of any other drugs including cocaine cannabis and alcohol. Denied smoking cigarettes. Patient was born in [place]. Has ninth grade of education, not working, on SSI, never , has 2 children and years and 5 years old from 2 different males. Her children live with their fathers. Her height is 5 feet 1 inch and weight is 94 pounds. Patient denied any eating problems. Patient lives with her boyfriend. Current Medications: Active Medications Generic Name Dose Route Start Last Admin Trade Name Freq PRN Reason Stop Dose Admin Albuterol/Ipratropium 3 ml 04/14/17 14:00 Duoneb 3 Mg/0.5 Mg (3 Ml) Ud INH RQ6 ANDERSON Clonidine HCl 0.1 mg 04/14/17 10:53 Catapres PO BID ANDERSON Famotidine 20 mg 04/14/17 18:00 Pepcid PO BID ANDERSON Methylprednisolone 40 mg 04/14/17 14:00 04/14/17 14:06 Solu-Medrol IVP 40 mg Q6H ANDERSON Administration Montelukast Sodium 10 mg 04/14/17 22:00 Singulair PO HS ANDERSON Past Psychiatric History - Past Psychiatric History Previous Treatment History: None History of Abuse: None reported History of ETOH/Drug Use: See HPI History of Family Illness: None reported Pertinent Medical Hx (Current Medical&Sleep Prob, Allergies): Allergies Allergy/AdvReac Type Severity Reaction Status Date / Time shrimp Allergy Severe ITCHING Verified 10/13/16 18:35 Albuterol 0.083% [Albuterol 0.083% Inhal Jenny (2.5 mg/3 ml) UD] 2.5 mg INH RQ2 PRN #100 neb 03/07/17 Albuterol/Ipratropium [Combivent Respimat] 1 puff IH QID #1 inhaler 03/07/17 Fluticasone/Salmeterol 250/50 [Advair Diskus 250/50] 2 puff INH QID #30 puff Montelukast [Singulair] 10 mg PO HS #30 tab 03/07/17 Asthma Review of Systems - Psychiatric Psychiatric: Other Mental Status Examination - Personal Presentation Personal Presentation: Looks stated age - Affect Affect: Other (Appropriate) - Motor Activity Motor Activity: Calm - Reliability in Providing Information Reliability in Providing Information: Fair - Speech Speech: Organized - Mood Mood: Neutral - Formal Thought Process Formal Thought Process: No Impairment - Hallucinations/Delusions Hallucinations: Other (None reported) Delusions: Other - Obsessions/Compulsions Obsessions: None Compulsions: None - Cognitive Functions Orientation: Person, Place, Situation, Time Sensorium: Alert Attention/Concentration: Attentive Abstract Thinking: [place] Estimate of Intelligence: Average Judgement: Intact, as evidence by: Insight regarding need for hospitalization Memory: Recent intact, as evidence by: 3/3 object recall, Remote intact, as evidenced by: Ability to recall historical events - Risk Risk: Withdrawal, Diminished functioning - Strength & Assets Inventory Strength & Assets Inventory: Cooperative - Limitations Limitations: Other DSM 5 DX - DSM 5 DSM 5 Diagnosis: Opiate use disorder severe Opiate withdrawal - Recommended/Plan of Treatment Treatment Recommendations and Plan of Treatment: Patient education Supportive therapy Patient has QTc prolongation, patient has no symptoms of opiate withdrawal. Patient can get clonidine 1 mg by mouth every 6 when necessary for opiate withdrawal symptoms Patient can get other when necessary medications As patient already have QTc prolongation which can become worse with methadone. No methadone. - Smoking Cessation Smoking Cessation Initiated: No Reason for not providing: Patient doesn't smoke cigarettes
[2017-04-14] MEDS: Albuterol-Ipratrop 3 mg / 0.5 (3 ml) UD INH SCH (19:28)
[2017-04-15] MEDS: Albuterol-Ipratrop 3 mg / 0.5 (3 ml) UD INH SCH ×3 (01:50→08:09)
[2017-04-15] MEDS: MethylPREDNISolone 40 mg Vial IVP SCH ×2 (01:55→08:24)
--- NOTE | 2017-04-15 02:13 | CP.PCM.PN ---
<BetsysurekhaFortino - Last Filed: 04/15/17 02:15> Subjective - Date & Time of Evaluation Date of Evaluation: 04/15/17 Time of Evaluation: 02:10 - Subjective Subjective: PGY-1 Medicine Progress Note for Dr. Rea Patient seen and examined at bedside. No acute event overnight. Patient resting in bed comfortably. She is still complaining of SOB and wheezing. Patient has long standing history of uncontrolled asthma. She has issues with compliance due and history drug abuse. She uses rescue inhaler everyday. Patient denies fever/chills, chest pain, palpitations, cough, abd pain, n/v/d, constipation, incontinence, urinary symptoms. Objective - Vital Signs/Intake and Output Vital Signs (last 24 hours): Temp Pulse Resp BP Pulse Ox 97.6 F 61 20 123/84 92 L 04/14/17 23:35 04/15/17 00:00 04/14/17 23:35 04/14/17 23:35 04/14/17 23:35 Intake and Output: 04/14/17 04/15/17 18:59 06:59 Intake Total 800 Balance 800 - Medications Medications: Current Medications Albuterol/Ipratropium (Duoneb 3 Mg/0.5 Mg (3 Ml) Ud) 3 ml INH RQ6 [facility] Last Admin: 04/15/17 01:57 Dose: Not Given Clonidine HCl (Catapres) 0.1 mg PO BID [facility] Last Admin: 04/14/17 17:47 Dose: 0.1 mg Diphenhydramine HCl (Benadryl) 25 mg PO ONCE PRN PRN Reason: Insomnia Last Admin: 04/14/17 21:50 Dose: 25 mg Famotidine (Pepcid) 20 mg PO BID [facility] Last Admin: 04/14/17 17:47 Dose: 20 mg Methylprednisolone (Solu-Medrol) 40 mg IVP Q6H [facility] Last Admin: 04/15/17 01:55 Dose: 40 mg Montelukast Sodium (Singulair) 10 mg PO HS [facility] Last Admin: 04/14/17 21:50 Dose: 10 mg - Labs Labs: PT 11.7 SECONDS (9.7-12.2) 04/14/17 08:30 INR 1.0 04/14/17 08:30 APTT 40 SECONDS (21-34) H 04/14/17 08:30 - Constitutional Appears: No Acute Distress, Older Than Stated Age, Cachectic - Eye Exam Eye Exam: EOMI, Normal appearance Pupil Exam: PERRL - ENT Exam ENT Exam: Mucous Membranes Moist - Neck Exam Neck Exam: Normal Inspection - Respiratory Exam Respiratory Exam: Clear to Ausculation Bilateral, NORMAL BREATHING PATTERN - Cardiovascular Exam Cardiovascular Exam: REGULAR RHYTHM, +S1, +S2 - GI/Abdominal Exam GI & Abdominal Exam: Soft, Normal Bowel Sounds. absent: Distended, Firm, Guarding, Tenderness, Rebound - Rectal Exam Rectal Exam: Deferred - Extremities Exam Extremities Exam: Normal Capillary Refill. absent: Calf Tenderness - Back Exam Back Exam: absent: CVA tenderness (L), CVA tenderness (R) - Neurological Exam Neurological Exam: Alert, Awake, CN II-XII Intact, Oriented x3 - Psychiatric Exam Psychiatric exam: Normal Affect, Normal Mood - Skin Skin Exam: Dry, Warm Additional comments: +track wright +skin discoloration on back Assessment and Plan - Assessment and Plan (Free Text) Plan: (1) Asthma exacerbation Duoneb 3ml INH Q6 [facility] Solumedrol 40mg IVP Q6H Singulair 10mg PO HS Monitor PFTs CXR on admission shows no active disease. (2) Heroin abuse Detox team consulted, Dr. Rose, help appreciated. Clonidine 0.1 BID for symptoms of withdrawal. No Methadone as patient has QT prolongation on EKG. (3) QT prolongation EKG on admission shows 100 bpm NSR with QTc 518. Avoid medications that may prolong QTc. Repeat EKG this AM (4) Prophylactic measure Pepcid 20 mg PO BID SCDs and Ambulation. <Yaw Rea H - Last Filed: 04/15/17 10:49> Objective - Vital Signs/Intake and Output Vital Signs (last 24 hours): Temp Pulse Resp BP Pulse Ox 98.3 F 97 H 18 122/87 93 L 04/15/17 07:40 04/15/17 08:50 04/15/17 07:40 04/15/17 07:40 04/15/17 07:40 Intake and Output: 04/15/17 04/15/17 06:59 18:59 Intake Total 950 Balance 950 - Medications Medications: Current Medications Albuterol Sulfate (Albuterol 0.083% Inhal Jenny (2.5 Mg/3 Ml) Ud) 2.5 mg INH RQ2 PRN PRN Reason: Shortness of Breath Albuterol/Ipratropium (Duoneb 3 Mg/0.5 Mg (3 Ml) Ud) 3 ml INH RQ6 [facility] Last Admin: 04/15/17 08:09 Dose: 3 ml Clonidine HCl (Catapres) 0.1 mg PO BID [facility] Last Admin: 04/15/17 10:24 Dose: 0.1 mg Diphenhydramine HCl (Benadryl) 25 mg PO ONCE PRN PRN Reason: Insomnia Last Admin: 04/14/17 21:50 Dose: 25 mg Famotidine (Pepcid) 20 mg PO BID [facility] Last Admin: 04/15/17 10:24 Dose: 20 mg Methylprednisolone (Solu-Medrol) 40 mg IVP Q6H [facility] Last Admin: 04/15/17 08:24 Dose: 40 mg Montelukast Sodium (Singulair) 10 mg PO HS [facility] Last Admin: 04/14/17 21:50 Dose: 10 mg - Labs Labs: PT 11.7 SECONDS (9.7-12.2) 04/14/17 08:30 INR 1.0 04/14/17 08:30 APTT 40 SECONDS (21-34) H 04/14/17 08:30 Assessment and Plan (1) Heroin abuse Status: Chronic (2) QT prolongation Status: Resolved (3) Exacerbation of asthma Status: Acute Attending/Attestation - Attestation I have personally seen and examined this patient.: Yes I have fully participated in the care of the patient.: Yes I have reviewed all pertinent clinical information, including history, physical exam and plan: Yes Notes (Text): 04/15/17 10:48 Medical Attending: Patient was seen and examined by me earlier in the morning. She is pending discharge today. Please see the DC summary thank you Yaw Rea
[2017-04-15 07:47] VITALS: BP 122/87; RESP 18; TEMP 98.3; O2SAT 93
[2017-04-15 08:57] VITALS: PULSE 97
--- NOTE | 2017-04-15 09:48 | CP.PCM.DIS ---
Provider - Provider Date of Admission: 04/14/17 09:48 Attending physician: Brissa Arthur DO Time Spent in preparation of Discharge (in minutes): 29 Diagnosis - Discharge Diagnosis (1) Heroin abuse Status: Chronic (2) QT prolongation Status: Resolved (3) Exacerbation of asthma Status: Acute Hospital Course - Lab Results Lab Results: Most Recent Lab Values WBC 8.5 K/uL (4.8-10.8) 04/14/17 08:30 RBC 6.21 Mil/uL (3.80-5.20) H 04/14/17 08:30 Hgb 15.6 g/dL (11.0-16.0) 04/14/17 08:30 Hct 47.4 % (34.0-47.0) H 04/14/17 08:30 MCV 76.2 fL (81.0-99.0) L D 04/14/17 08:30 MCH 25.1 pg (27.0-31.0) L 04/14/17 08:30 MCHC 32.9 g/dL (33.0-37.0) L 04/14/17 08:30 RDW 21.2 % (11.5-14.5) H 04/14/17 08:30 Plt Count 206 K/uL (130-400) 04/14/17 08:30 MPV 9.1 fL (7.2-11.7) 04/14/17 08:30 Neut % (Auto) 44.0 % (50.0-75.0) L 04/14/17 08:30 Lymph % (Auto) 15.6 % (20.0-40.0) L 04/14/17 08:30 [place] % (Auto) 4.8 % (0.0-10.0) 04/14/17 08:30 Eos % (Auto) 34.8 % (0.0-4.0) H 04/14/17 08:30 Baso % (Auto) 0.8 % (0.0-2.0) 04/14/17 08:30 Neut # 3.7 K/uL (1.8-7.0) 04/14/17 08:30 Lymph # 1.3 K/uL (1.0-4.3) 04/14/17 08:30 [place] # 0.4 K/uL (0.0-0.8) 04/14/17 08:30 Eos # 2.9 K/uL (0.0-0.7) H 04/14/17 08:30 Baso # 0.1 K/uL (0.0-0.2) 04/14/17 08:30 Neutrophils % (Manual) 50 % (50-75) 04/14/17 08:30 Lymphocytes % (Manual) 13 % (20-40) L 04/14/17 08:30 Monocytes % (Manual) 3 % (0-10) 04/14/17 08:30 Eosinophils % (Manual) 33 % (0-4) H 04/14/17 08:30 Basophils % (Manual) 1 % (0-2) 04/14/17 08:30 Platelet Estimate Normal (NORMAL) 04/14/17 08:30 Large Platelets Present 04/14/17 08:30 Giant Platelets Present 04/14/17 08:30 Polychromasia Slight 04/14/17 08:30 Hypochromasia (manual) Slight 04/14/17 08:30 Poikilocytosis (manual Slight 04/14/17 08:30 Anisocytosis (manual) Moderate 04/14/17 08:30 Ovalocytes Slight 04/14/17 08:30 PT 11.7 SECONDS (9.7-12.2) 04/14/17 08:30 INR 1.0 04/14/17 08:30 APTT 40 SECONDS (21-34) H 04/14/17 08:30 Sodium 139 mmol/L (132-148) 04/14/17 08:30 Potassium 4.4 mmol/L (3.6-5.2) 04/14/17 08:30 Chloride 94 mmol/L (98-107) L 04/14/17 08:30 Carbon Dioxide 35 mmol/L (22-30) H 04/14/17 08:30 Anion Gap 14 (10-20) 04/14/17 08:30 BUN 6 mg/dL (7-17) L 04/14/17 08:30 Creatinine 0.5 MG/DL (0.7-1.2) L 04/14/17 08:30 Est GFR ( Amer) > 60 04/14/17 08:30 Est GFR (Non-Af Amer) > 60 04/14/17 08:30 Random Glucose 104 mg/dL (65-105) 04/14/17 08:30 Calcium 9.0 mg/dl (8.6-10.4) 04/14/17 08:30 Magnesium 1.8 mg/dL (1.6-2.3) 04/14/17 10:12 Total Bilirubin 1.0 mg/dL (0.2-1.3) 04/14/17 08:30 AST 26 U/L (14-36) 04/14/17 08:30 ALT 16 U/L (9-52) 04/14/17 08:30 Alkaline Phosphatase 102 U/L (38-126) 04/14/17 08:30 Total Protein 8.0 g/dL (6.3-8.3) 04/14/17 08:30 Albumin 4.1 g/dL (3.5-5.0) 04/14/17 08:30 Globulin 3.9 gm/dL (2.2-3.9) 04/14/17 08:30 Albumin/Globulin Ratio 1.1 (1.0-2.1) 04/14/17 08:30 Urine Color Yellow (YELLOW) 04/14/17 10:21 Urine Clarity Clear (Clear) 04/14/17 10:21 Urine pH 5.0 (5.0-8.0) 04/14/17 10:21 Ur Specific [place] 1.016 (1.003-1.030) 04/14/17 10:21 Urine Protein Negative mg/dL (NEGATIVE) 04/14/17 10:21 Urine Glucose (UA) Normal mg/dL (Normal) 04/14/17 10:21 Urine Ketones Negative mg/dL (NEGATIVE) 04/14/17 10:21 Urine Blood Negative (NEGATIVE) 04/14/17 10:21 Urine Nitrate Negative (NEGATIVE) 04/14/17 10:21 Urine Bilirubin Negative (NEGATIVE) 04/14/17 10:21 Urine Urobilinogen Normal mg/dL (0.2-1.0) 04/14/17 10:21 Ur Leukocyte Esterase Trace [place]/uL (Negative) 04/14/17 10:21 Urine WBC (Auto) 3 /hpf (0-5) 04/14/17 10:21 Urine RBC (Auto) 1 /hpf (0-3) 04/14/17 10:21 Ur Squamous Epith Cells 4 /hpf (0-5) 04/14/17 10:21 Urine Bacteria Rare (<OCC) 04/14/17 10:21 Urine HCG, Qual Negative (NEGATIVE) 04/14/17 10:21 - Hospital Course Hospital Course: This is a 27 year old female who is unfourtunately well known to the hospitalist service from chronic use of heroin abuse. Despite her young age she explains to me that she snorts upwards of 10 packs a day. She came in 04/14/17 with coughing and shortness of breath. By the time I saw her on 04/15 she still had wheezing but was able to walk with me in the hallway without any problems and was speaking in full sentences when walking with me. She knows the heroine is causing her harm. There was concerns for prolonged QTC and so methadone was not ordered this time. She explained to me she felt ready to go to day so we are discharging. I explained to patient my usual talk to her about her being so young and she still has the potential for a full life ahead of her. To be mechelle I don't know if my conversations with her are doing any good or not. She knows the heroin is a problem however she still uses. She needed another inhaler as well as a long acting inhaler. From the resident's HP.... "26 year old female with PMHx of asthma and heroin abuse presented to ED complaining of shortness of breath and wheezing for 1 day. Admits SOB became progressively worse since yesterday and she decided to come in for evaluation. Admits to taking albuterol inhaler around the clock and every day. She also takes Singulair daily. Admits to using IV heroin use [6 to 8 bags/day] and the last time she used was the day before admission. She denied any other drug use and reported no longer smoking cigarettes. Patient also reported some RLQ abdominal pain but denied any nausea or vomiting or any bowel/bladder complaints. Patient denied any fever, chills, chest pain, palpitations, cough, back pain, easy bruising, easy bleeding, weight changes, appetite changes. Patient denied any recent travel or sick contacts. " Discharge Exam - Head Exam Head Exam: NORMAL INSPECTION, NORMOCEPHALIC - Eye Exam Eye Exam: EOMI, Normal appearance Pupil Exam: NORMAL ACCOMODATION - ENT Exam ENT Exam: Mucous Membranes Moist - Respiratory Exam Respiratory Exam: Decreased Breath Sounds, Wheezes - Cardiovascular Exam Cardiovascular Exam: REGULAR RHYTHM - GI/Abdominal Exam GI & Abdominal Exam: Normal Bowel Sounds, Unremarkable - Extremities Exam Additional comments: Walking and ambulating - Neurological Exam Neurological exam: Alert, CN II-XII Intact, Oriented x3 - Psychiatric Exam Psychiatric exam: Normal Affect, Normal Mood - Skin Skin Exam: Normal Color Discharge Plan - Follow Up Plan Condition: STABLE Disposition: HOME/ ROUTINE
[2017-04-15] MEDS ORDERED: Albuterol 0.083% Inhal Sol (2.5 mg/3 mL) UD INH PRN (09:52)
--- NOTE | 2017-04-17 02:00 | CARD ---
APPROVED REPORT EKG Measurement Heart [id number] [id number] <Conclusion> Age and gender specific ECG analysis Normal sinus rhythm ST elevation, consider lateral injury or acute infarct Prolonged QT ACUTE IA / STEMI Abnormal ECG
--- NOTE | 2017-04-17 17:22 | CARD ---
APPROVED REPORT EKG Measurement Heart [id number] <Conclusion> Normal sinus rhythm w/ early repolarization changes Right atrial enlargement Prolonged QT Abnormal ECG
== END 2017-04-15 11:33 | disposition home or self-care (01) ==
LOC: C.ER 07:38 → INTOOBSV 09:48 → C.9E 09:48 → C.6T 10:05
PROVIDERS: ADMIT Hospitalist; ATTEND Hospitalist
PROC: HZ2ZZZZ Detoxification Services for Substance Abuse Treatment (ICD-10-PCS; principal; 2017-04-14)
DX: J45.901 Unspecified asthma with (acute) exacerbation (principal); F11.23 Opioid dependence with withdrawal; I45.81 Long QT syndrome; F41.9 Anxiety disorder, unspecified; Z59.0 Homelessness; Z87.891 Personal history of nicotine dependence
CPT/HCPCS: 36415; 71010; 80053; 81001; 83735; 84703; 85025; 85610; 85730; 93005; 94150; 94640; 96374; 99284; G0378; J2920; J2930; J3475

== ENCOUNTER 2017-08-28 21:37 | Inpatient (IN) | payer MEDICARE, OTHER ==
[2017-08-28 21:37] VITALS: BMI 17.9
[2017-08-28] MEDS ORDERED: Naloxone 0.4 mg/ml Inj (Adult) ONE ×2 (21:49→22:15)
[2017-08-28] MEDS ORDERED: Albuterol-Ipratrop 3 mg / 0.5 (3 ml) UD ONE ×4 (21:52→22:59)
[2017-08-28] MEDS ORDERED: Naloxone 0.4 mg/ml Inj (Adult) IVP ONE (21:56)
--- NOTE | 2017-08-28 21:58 | C.PDOC ---
History Of Present Illness 27 y/o female with a hx of opioid abuse and asthma, c/o SOB and being lethargic that began tonight. Denies fever, chills, or cough. No chest pain, palpitations , or lightheadedness. Time Seen by Provider: 08/28/17 21:57 Chief Complaint (Nursing): Shortness Of Breath History Per: Patient History/Exam Limitations: no limitations Onset/Duration Of Symptoms: Hrs (tonight) Current Symptoms Are (Timing): Still Present Severity: Mild Associated Symptoms: denies: Fever, Chills, Productive Cough Recent travel outside of the [place]: No Additional History Per: Patient Past Medical History Reviewed: Historical Data, Nursing Documentation, Vital Signs Vital Signs: Last Vital Signs Temp 96.4 F L 08/29/17 00:50 Pulse 112 H 08/29/17 01:56 Resp 14 08/29/17 01:56 BP 116/68 08/29/17 01:56 Pulse Ox 100 08/29/17 01:56 - Medical History PMH: Anxiety, Asthma Denies: Chronic Kidney Disease - [facility] Procedures CONTINUOUS INVASIVE MECHANICAL VENTILATION <96 CONSEC HRS (12/16/13) DETOXIFICATION SERVICES FOR SUBSTANCE ABUSE TREATMENT (04/14/17) INSERT ENDOTRACHEAL TUBE (12/16/13) MEDS MGMT FOR SUBSTANCE ABUSE TREATMENT, METHADONE MAINT (03/01/17) OTHER SKIN & SUBQ I D (06/14/13) TETANUS TOXOID ADMINIST (06/14/13) Family History: States: Unknown Family Hx - Social History Hx Tobacco Use: (UNKNOWN) Hx Alcohol Use: No Hx Substance Use: Yes (IV heroin, Methadone and Xanax) - Immunization History Hx Tetanus Toxoid Vaccination: No Hx Influenza Vaccination: No Hx Pneumococcal Vaccination: No Review Of Systems Except As Marked, All Systems Reviewed And Found Negative. Constitutional: Positive for: Other (Lethargic). Negative for: Fever, Chills Cardiovascular: Negative for: Chest Pain, Palpitations, Light Headedness Respiratory: Positive for: Shortness of Breath. Negative for: Cough Physical Exam - Physical Exam Appears: Non-toxic, No Acute Distress Skin: Warm, Dry Head: Atraumatic, Normacephalic Eye(s): bilateral: Normal Inspection Cardiovascular: Rhythm Regular (Tachycardic), No Murmur Respiratory: Normal Breath Sounds, Decreased Breath Sounds (Diminished), No Rales, Rhonchi (Ocassional), Wheezing (ocassional wheezing) Gastrointestinal/Abdominal: Soft, No Tenderness Neurological/Psych: Oriented x3 ED Course And Treatment - Laboratory Results Result Diagrams: 08/28/17 22:05 08/28/17 22:05 Interpretation Of Abnormal: ABG- elevated pCO2 ECG: Interpreted By Me, Viewed By Me ECG Rhythm: Sinus Tachycardia, ST/T Changes ECG Interpretation: Abnormal Interpretation Of ECG: Sinus tachycardia, T wave abnomality-anterior chest wall Rate From EC O2 Sat by Pulse Oximetry: 67 Pulse Ox Interpretation: Abnormal - Radiology CXR: Interpreted by Me, Viewed By Me CXR Interpretation: Yes: Infiltrates, Cardiomegaly (mild to moderate), Other ( Vascular and interstitial prominence most suggest of pulmonary edema. Atypical infectious process could also have this appearance. Lungs are hyperinflated. No evidence for large, dense consolidation, large eddusion or pneumothorax. ). No : Pnemothorax Progress Note: Patient subsequently intubated in the ER . Medical Decision Making Medical Decision Making: Impression: * SOB and being lethargic since tonight. Plans: * EKG * Blood labs * CXR * Narcan * IV fluids * Prednisolone Progress: patient has been intubated. After sedation, patient will be admitted to ICU. Disposition Discussed With Dr.: Anjana Abdalla Doctor Will See Patient In The: Hospital Counseled Patient/Family Regarding: Diagnosis - Disposition Disposition: HOSPITALIZED Disposition Time: 01:35 Condition: GUARDED - POA Present On Arrival: None - Clinical Impression Clinical Impression: Respiratory distress, Respiratory tract infection, Respiratory failure, Asthma with status asthmaticus - Scribe Statement The provider has reviewed the documentation as recorded by the Scribe Terell morris All medical record entries made by the Scribe were at my direction and personally dictated by me. I have reviewed the chart and agree that the record accurately reflects my personal performance of the history, physical exam, medical decision making, and the department course for this patient. I have also personally directed, reviewed, and agree with the discharge instructions and disposition.
[2017-08-28] MEDS ORDERED: Sodium Chloride 0.9% 1,000 ML IV ONE (22:00)
[2017-08-28] MEDS ORDERED: Albuterol-Ipratrop 3 mg / 0.5 (3 ml) UD INH STA ×4 (22:00→22:45)
[2017-08-28 22:13] LABS: BASO # 0.1 K/uL (0.0-0.2); BASO % 1.1 % (0.0-2.0); EOS # 3.2 K/uL (0.0-0.7); EOS % 28.5 % (0.0-4.0); HEMATOCRIT 53.8 % (34.0-47.0); LYMPH # 2.9 K/uL (1.0-4.3); LYMPH % 26.4 % (20.0-40.0); MEAN CELL VOLUME 75.4 fL (81.0-99.0); MEAN CORPUSCULAR HEMOGLOBIN 23.9 pg (27.0-31.0); MEAN CORPUSCULAR HGB CONC 31.6 g/dL (33.0-37.0); MEAN PLATELET VOLUME 9.2 fL (7.2-11.7); MONO # 1.1 K/uL (0.0-0.8); MONO % 9.5 % (0.0-10.0); NRBC % 0.4 % (0.0-2.0); PLATELET COUNT 286 K/uL (130-400); RED CELL DISTRIBUTION WIDTH 18.8 % (11.5-14.5); WHITE BLOOD COUNT 11.1 K/uL (4.8-10.8)
[2017-08-28] MEDS ORDERED: Naloxone 0.4 mg/ml Inj (Adult) IM STA (22:14)
[2017-08-28 22:19] LABS: CHLORIDE 89 mmol/L (98-107); POTASSIUM 3.8 mmol/L (3.6-5.2); SODIUM 140 mmol/L (132-148)
[2017-08-28 22:21] LABS: ALB/GLOB RATIO 0.9 (1.0-2.1); ALKALINE PHOSPHATASE 111 U/L (38-126); AST/SGOT 32 U/L (14-36); BILIRUBIN,TOTAL 0.8 mg/dL (0.2-1.3); GFR AFRICAN-AMERICAN > 60; TOTAL PROTEIN 9.1 g/dL (6.3-8.3)
[2017-08-28 22:22] LABS: ALCOHOL SERUM < 10 mg/dl (0-10); ALT/SGPT 35 U/L (9-52); BLOOD UREA NITROGEN 21 mg/dL (7-17); CALCIUM 9.4 mg/dl (8.6-10.4); GLUCOSE,RANDOM 120 mg/dL (65-105)
[2017-08-28 22:35] LABS: ABG ALLEN TEST A; ARTERIAL BLOOD HGB O2 SAT 94.7 % (95.0-98.0); CARBOXYHEMOGLOBIN 3.3 % (0.5-1.5); DRAW SITE RRA; HHB 0.6 % (0.0-5.0); METHEMOGLOBIN 1.5 % (0.0-3.0)
[2017-08-28 22:38] LABS: CARBON DIOXIDE 37 mmol/L (22-30)
[2017-08-28 22:57] LABS: EOSINOPHIL 32 % (0-4); NEUTROPHIL 26 % (50-75); TOTAL CELLS COUNTED 100
[2017-08-28] MEDS: Magnesium Sulfate 1 gm in D5W 1 GM/100 ML BAG IVPB SCH ×2 (23:02→23:41)
[2017-08-28] MEDS ORDERED: Albuterol 0.083% Inhal Sol (2.5 mg/3 mL) UD INH ONE (23:08)
[2017-08-28] MEDS ORDERED: cefTRIAXone IV 1 gm in Dextros 50 ML IVPB ONE ×2 (23:09→23:13)
[2017-08-28] MEDS ORDERED: Azithromycin 500mg/250ML NS 500 MG/250 ML BAG IV STA (23:10)
[2017-08-28] MEDS ORDERED: Albuterol 0.083% Inhal Sol (2.5 mg/3 mL) UD ONE (23:13)
[2017-08-28] MEDS ORDERED: Azithromycin 500mg/250ML NS 500 MG/250 ML BAG IVPB ONE (23:51)
[2017-08-29] MEDS ORDERED: Naloxone 0.4 mg/ml Inj (Adult) IVP ONE ×3 (00:01→00:20)
[2017-08-29] MEDS ORDERED: Naloxone 0.4 mg/ml Inj (Adult) ONE ×2 (00:11→00:22)
[2017-08-29] MEDS ORDERED: Sodium Chloride 0.9% 1,000 ML ONE (00:13)
--- NOTE | 2017-08-29 00:14 | RAD ---
EXAM: XR Chest, 1 View CLINICAL HISTORY: 27 years old, female; Signs and symptoms; Shortness of breath; Additional info: SOB TECHNIQUE: Frontal view of the chest. COMPARISON: No relevant prior studies available. FINDINGS: Lungs: There is vascular and interstitial prominence most suggestive of pulmonary edema. Atypical infectious process could also have this appearance. The lungs are hyperinflated. No evidence for large, dense consolidation, large effusion or pneumothorax. Pleural space: See above. Heart: Mild to moderate cardiomegaly. Mediastinum: Unremarkable. Bones/joints: Unremarkable. IMPRESSION: 1. There is vascular and interstitial prominence most suggestive of pulmonary edema. Atypical infectious process could also have this appearance. 2. Mild to moderate cardiomegaly. 3. The lungs are hyperinflated. 4. No evidence for large, dense consolidation, large effusion or pneumothorax.
[2017-08-29] MEDS ORDERED: Albuterol 0.083% Inhal Sol (2.5 mg/3 mL) UD ONE (00:22)
[2017-08-29] MEDS ORDERED: Albuterol 0.083% Inhal Sol (2.5 mg/3 mL) UD INH ONE (00:30)
[2017-08-29 01:00] LABS: ARTERIAL BLOOD HGB O2 SAT 95.6 % (95.0-98.0); CARBOXYHEMOGLOBIN 2.8 % (0.5-1.5); DRAW SITE RB; METHEMOGLOBIN 1.5 % (0.0-3.0)
[2017-08-29] MEDS ORDERED: Propofol 10 mg/ml Inj (20 ML) ONE (01:09)
[2017-08-29] MEDS ORDERED: Propofol 10 mg/ml Inj (20 ML) IV ONE ×4 (01:10→02:16)
[2017-08-29] MEDS ORDERED: Succinylcholine Chloride 20 mg/ml Syr (5 ml) IV ONE (01:24)
[2017-08-29] MEDS ORDERED: Propofol 10 mg/ml 1,000 MG/100 ML VIAL ONE (01:36)
[2017-08-29 02:07] LABS: RBC URINE 1 /hpf (0-3); URINE BACTERIA RARE (<OCC); URINE BILIRUBIN NEGATIVE (NEGATIVE); URINE COLOR Yellow (YELLOW); URINE GLUCOSE (UA) NORMAL (Normal); URINE KETONE NEGATIVE (NEGATIVE); URINE LEUKOCYTE ESTERASE NEG Leu/uL (Negative); URINE PROTEIN 1+ mg/dL (NEGATIVE); URINE UROBILINOGEN NORMAL mg/dL (0.2-1.0); WBC URINE 2 /hpf (0-5)
[2017-08-29 02:10] LABS: URINE BLOOD TRACE (NEGATIVE)
[2017-08-29 02:15] LABS: ABG ALLEN TEST POS; ABG MECHANICAL RATE 20; ARTERIAL BLOOD GAS MODE PRVC; ATERIAL BLOOD GAS PEEP 5; DRAW SITE RR
[2017-08-29] MEDS: Propofol 10 mg/ml 1,000 MG/100 ML VIAL IV PRN ×3 (02:22→16:19)
[2017-08-29 05:51] LABS: ABG ALLEN TEST POS; ABG MECHANICAL RATE 20; ARTERIAL BLOOD GAS MODE PRVC; ARTERIAL BLOOD HGB O2 SAT 96.6 % (95.0-98.0); ATERIAL BLOOD GAS PEEP 5; CARBOXYHEMOGLOBIN 1.2 % (0.5-1.5); DRAW SITE RR; HHB 0.8 % (0.0-5.0); METHEMOGLOBIN 1.5 % (0.0-3.0)
[2017-08-29 06:44] LABS: BASO % 0.4 % (0.0-2.0); EOS % 0.1 % (0.0-4.0); LYMPH # 0.5 K/uL (1.0-4.3); LYMPH % 7.5 % (20.0-40.0); MEAN CELL VOLUME 74.3 fL (81.0-99.0); MEAN CORPUSCULAR HGB CONC 32.3 g/dL (33.0-37.0); MEAN PLATELET VOLUME 9.3 fL (7.2-11.7); MONO # 0.1 K/uL (0.0-0.8); MONO % 1.1 % (0.0-10.0); NRBC % 0.1 % (0.0-2.0); PLATELET COUNT 178 K/uL (130-400); RED CELL DISTRIBUTION WIDTH 18.7 % (11.5-14.5); WHITE BLOOD COUNT 7.2 K/uL (4.8-10.8)
[2017-08-29 06:47] LABS: INR 1.2
--- NOTE | 2017-08-29 07:07 | CP.PCM.CON ---
History of Present Illness - History of Present Illness History of Present Illness: Chief complaints: Shortness of breath History of present illness: 27-year-old female with a history of asthma and a drug abuse came to the emergency room at the progressively worsening shortness of breath. Patient is currently intubated. The information was taken from the chart. Patient was not able to complete, she was more somnolent in the emergency room, in spite of the supportive treatment and BiPAP patient become more lethargic and shortness of breath. Patient needed ventilatory support given the altered mental status and lethargy , patient was intubated. Patient was placed on sedation, on ventilator. Past medical history asthma. Medications reviewed Personal history: Patient is a smoker, also uses drug abuse daily. Family history noncontributory History of Review of system: Currently ventilator, sedated. On examination: Vital signs stable. Chest bilateral good air entry, no wheezing noted currently. Regular heart sound. Abdomen soft nontender [employer] currently sedated On propofol drip Labs reviewed Chest x-ray showing possible right middle lung atelectasis. Otherwise endotracheal tube is in position Assessment/recommendation: 27-year-old female with history of asthma, drug abuse admitted with acute respiratory failure. On ventilator. Patient has very low VQ mismatch. Unlikely PE. Continue the current treatment. Possible extubation if stable today. DVT GI prophylaxis with Prognosis is guarded. Patient will be follow-up in the ICU team Past Patient History - Infectious Disease Hx of Infectious Diseases: None - Past Medical History & Family History Past Medical History?: Yes - Past Social History Smoking Status: Never Smoked - CARDIAC Hx Cardiac Disorders: No - PULMONARY Hx Asthma: Yes - NEUROLOGICAL Hx Neurological Disorder: No - HEENT Hx HEENT Problems: No - RENAL Hx Chronic Kidney Disease: No - ENDOCRINE/METABOLIC Hx Endocrine Disorders: No - HEMATOLOGICAL/ONCOLOGICAL Hx Blood Disorders: No - INTEGUMENTARY Hx Dermatological Problems: No - MUSCULOSKELETAL/RHEUMATOLOGICAL Hx Musculoskeletal Disorders: No Hx Falls: No - GASTROINTESTINAL Hx Gastrointestinal Disorders: No - GENITOURINARY/GYNECOLOGICAL Hx Genitourinary Disorders: No - PSYCHIATRIC Hx Anxiety: Yes Hx Substance Use: Yes (IV heroin, Methadone and Xanax) - SURGICAL HISTORY Hx Surgeries: Yes Hx Section: Yes (X2) - ANESTHESIA Hx Anesthesia: Yes Hx Anesthesia Reactions: No Hx Malignant Hyperthermia: No Has any member of the family had a problem w/ anesthesia?: No Meds Allergies/Adverse Reactions: Allergies Allergy/AdvReac Type Severity Reaction Status Date / Time shrimp Allergy Severe ITCHING Verified 10/13/16 18:35 - Medications Medications: Current Medications Albuterol/Ipratropium (Duoneb 3 Mg/0.5 Mg (3 Ml) Ud) 3 ml INH RQ6 ANDERSON Sodium Chloride (Sodium Chloride 0.9%) 1,000 mls @ 100 mls/hr IV .Q10H ONE Stop: 08/29/17 07:59 Last Admin: 08/28/17 22:28 Dose: 100 mls/hr Propofol (Diprivan) 1,000 mg in 100 mls @ 4.899 mls/hr IV .[id number] PRN; Protocol; 20 MCG/KG/MIN PRN Reason: TITRATE PER MD ORDER Last Admin: 08/29/17 02:22 Dose: 35 mcg/kg/min, 8.573 mls/hr Pantoprazole Sodium (Protonix Inj) 40 mg IVP DAILY [facility] Results - Vital Signs Recent Vital Signs: Last Vital Signs Temp 98.7 F 08/29/17 06:00 Pulse 102 H 08/29/17 06:50 Resp 20 08/29/17 06:50 BP 108/64 08/29/17 06:43 Pulse Ox 97 08/29/17 06:50 - Labs Result Diagrams: 08/29/17 06:32 08/28/17 22:05 Labs: Laboratory Results - last 24 hr 08/28/17 08/28/17 08/28/17 22:05 22:05 22:32 WBC 11.1 H RBC 7.13 H Hgb 17.0 H Hct 53.8 H MCV 75.4 L MCH 23.9 L MCHC 31.6 L RDW 18.8 H Plt Count 286 MPV 9.2 Neut % (Auto) 34.5 L Lymph % (Auto) 26.4 [place] % (Auto) 9.5 Eos % (Auto) 28.5 H Baso % (Auto) 1.1 Neut # 3.8 Lymph # 2.9 [place] # 1.1 H Eos # 3.2 H Baso # 0.1 Neutrophils % (Manual) 26 L Lymphocytes % (Manual) 40 Monocytes % (Manual) 2 Eosinophils % (Manual) 32 H Platelet Estimate Normal Polychromasia Slight Hypochromasia (manual) Slight Anisocytosis (manual) Slight Microcytosis (manual) Slight PT INR APTT D-Dimer, Quantitative Puncture Site Rra pCO2 78 H* pO2 123 H HCO3 31.1 H ABG pH 7.30 L ABG Total CO2 40.8 H ABG O2 Saturation 99.4 H ABG Base Excess 8.0 H ABG Hemoglobin 16.7 ABG Carboxyhemoglobin 3.3 H POC ABG HHb (Measured) 0.6 ABG Methemoglobin 1.5 Clive Test A ABG Potassium A-a O2 Difference Respiratory Index Hgb O2 Saturation 94.7 L Glucose Lactate Liter Flow Vent Mode Mechanical Rate FiO2 Tidal Volume PEEP Crit Value Called To [place] cheema md Crit Value Called By Tim cotton magazine filler Crit Value Read Back Y Blood Gas Notified Time 2236 Sodium 140 Potassium 3.8 Chloride 89 L Carbon Dioxide 37 H Anion Gap 18 BUN 21 H Creatinine 0.9 Est GFR ( Amer) > 60 Est GFR (Non-Af Amer) > 60 Random Glucose 120 H Calcium 9.4 Total Bilirubin 0.8 AST 32 ALT 35 Alkaline Phosphatase 111 Troponin I < 0.0120 NT-Pro-B Natriuret Pep Total Protein 9.1 H Albumin 4.2 Globulin 4.9 H Albumin/Globulin Ratio 0.9 L Arterial Blood Potassium Urine Color Urine Clarity Urine pH Ur Specific [place] Urine Protein Urine Glucose (UA) Urine Ketones Urine Blood Urine Nitrate Urine Bilirubin Urine Urobilinogen Ur Leukocyte Esterase Urine WBC (Auto) Urine RBC (Auto) Ur Squamous Epith Cells Urine Bacteria Hyaline Casts Urine HCG, Qual Urine Opiates Screen Urine Methadone Screen Ur Barbiturates Screen Ur Phencyclidine Scrn Ur Amphetamines Screen U Benzodiazepines Scrn U Oth Cocaine Metabols U Cannabinoids Screen Alcohol, Quantitative < 10 08/28/17 08/29/17 08/29/17 22:47 00:43 00:56 WBC RBC Hgb Hct MCV MCH MCHC RDW Plt Count MPV Neut % (Auto) Lymph % (Auto) [place] % (Auto) Eos % (Auto) Baso % (Auto) Neut # Lymph # [place] # Eos # Baso # Neutrophils % (Manual) Lymphocytes % (Manual) Monocytes % (Manual) Eosinophils % (Manual) Platelet Estimate Polychromasia Hypochromasia (manual) Anisocytosis (manual) Microcytosis (manual) PT INR APTT D-Dimer, Quantitative 658 H Puncture Site Rb pCO2 95 H* pO2 260 H HCO3 28.5 H ABG pH 7.20 L ABG Total CO2 40.0 H ABG O2 Saturation 100.0 H ABG Base Excess 4.7 H ABG Hemoglobin 16.4 ABG Carboxyhemoglobin 2.8 H POC ABG HHb (Measured) 0.0 ABG Methemoglobin 1.5 Clive Test Na ABG Potassium A-a O2 Difference Respiratory Index Hgb O2 Saturation 95.6 Glucose Lactate Liter Flow 8.0 Vent Mode Mechanical Rate FiO2 Tidal Volume PEEP Crit Value Called To Dr. cheema Crit Value Called By [employer] magazine filler Crit Value Read Back Y Blood Gas Notified Time 100 Sodium Potassium Chloride Carbon Dioxide Anion Gap BUN Creatinine Est GFR ( Amer) Est GFR (Non-Af Amer) Random Glucose Calcium Total Bilirubin AST ALT Alkaline Phosphatase Troponin I NT-Pro-B Natriuret Pep 6400 H Total Protein Albumin Globulin Albumin/Globulin Ratio Arterial Blood Potassium Urine Color Urine Clarity Urine pH Ur Specific [place] Urine Protein Urine Glucose (UA) Urine Ketones Urine Blood Urine Nitrate Urine Bilirubin Urine Urobilinogen Ur Leukocyte Esterase Urine WBC (Auto) Urine RBC (Auto) Ur Squamous Epith Cells Urine Bacteria Hyaline Casts Urine HCG, Qual Urine Opiates Screen Urine Methadone Screen Ur Barbiturates Screen Ur Phencyclidine Scrn Ur Amphetamines Screen U Benzodiazepines Scrn U Oth Cocaine Metabols U Cannabinoids Screen Alcohol, Quantitative 08/29/17 08/29/17 08/29/17 01:57 01:57 01:57 WBC RBC Hgb Hct MCV MCH MCHC RDW Plt Count MPV Neut % (Auto) Lymph % (Auto) [place] % (Auto) Eos % (Auto) Baso % (Auto) Neut # Lymph # [place] # Eos # Baso # Neutrophils % (Manual) Lymphocytes % (Manual) Monocytes % (Manual) Eosinophils % (Manual) Platelet Estimate Polychromasia Hypochromasia (manual) Anisocytosis (manual) Microcytosis (manual) PT INR APTT D-Dimer, Quantitative Puncture Site pCO2 pO2 HCO3 ABG pH ABG Total CO2 ABG O2 Saturation ABG Base Excess ABG Hemoglobin ABG Carboxyhemoglobin POC ABG HHb (Measured) ABG Methemoglobin Clive Test ABG Potassium A-a O2 Difference Respiratory Index Hgb O2 Saturation Glucose Lactate Liter Flow Vent Mode Mechanical Rate FiO2 Tidal Volume PEEP Crit Value Called To Crit Value Called By Crit Value Read Back Blood Gas Notified Time Sodium Potassium Chloride Carbon Dioxide Anion Gap BUN Creatinine Est GFR ( Amer) Est GFR (Non-Af Amer) Random Glucose Calcium Total Bilirubin AST ALT Alkaline Phosphatase Troponin I NT-Pro-B Natriuret Pep Total Protein Albumin Globulin Albumin/Globulin Ratio Arterial Blood Potassium Urine Color Yellow Urine Clarity Clear Urine pH 5.0 Ur Specific [place] 1.015 Urine Protein 1+ H Urine Glucose (UA) Normal Urine Ketones Negative Urine Blood Trace Urine Nitrate Negative Urine Bilirubin Negative Urine Urobilinogen Normal Ur Leukocyte Esterase Neg Urine WBC (Auto) 2 Urine RBC (Auto) 1 Ur Squamous Epith Cells < 1 Urine Bacteria Rare Hyaline Casts 6-10 H Urine HCG, Qual Negative Urine Opiates Screen Positive Urine Methadone Screen Negative Ur Barbiturates Screen Negative Ur Phencyclidine Scrn Negative Ur Amphetamines Screen Negative U Benzodiazepines Scrn Positive U Oth Cocaine Metabols Negative U Cannabinoids Screen Negative Alcohol, Quantitative 08/29/17 08/29/17 08/29/17 02:06 05:23 06:32 WBC 7.2 RBC 6.19 H Hgb 14.9 D Hct 46.0 MCV 74.3 L MCH 24.0 L MCHC 32.3 L RDW 18.7 H Plt Count 178 D MPV 9.3 Neut % (Auto) 90.9 H Lymph % (Auto) 7.5 L [place] % (Auto) 1.1 Eos % (Auto) 0.1 Baso % (Auto) 0.4 Neut # 6.6 Lymph # 0.5 L [place] # 0.1 Eos # 0.0 Baso # 0.0 Neutrophils % (Manual) Lymphocytes % (Manual) Monocytes % (Manual) Eosinophils % (Manual) Platelet Estimate Polychromasia Hypochromasia (manual) Anisocytosis (manual) Microcytosis (manual) PT INR APTT D-Dimer, Quantitative Puncture Site Rr Rr pCO2 74 H* 64 H pO2 514 H 638 H HCO3 27.3 30.4 H ABG pH 7.25 L 7.35 ABG Total CO2 34.8 H 37.3 H ABG O2 Saturation 100.6 H 99.2 H ABG Base Excess 2.9 7.1 H ABG Hemoglobin 15.3 ABG Carboxyhemoglobin 1.2 POC ABG HHb (Measured) 0.8 ABG Methemoglobin 1.5 Clive Test Pos Pos ABG Potassium 3.3 L A-a O2 Difference 107.0 -5.0 Respiratory Index 0.2 0 Hgb O2 Saturation 96.6 Glucose 192 H Lactate 1.0 Liter Flow Vent Mode Prvc Prvc Mechanical Rate 20 20 FiO2 100.0 100.0 Tidal Volume 450 450 PEEP 5 5 Crit Value Called To Dr. cheema Crit Value Called By [employer] magazine filler Crit Value Read Back Y Blood Gas Notified Time 214 Sodium 139.0 Potassium Chloride 106.0 Carbon Dioxide Anion Gap BUN Creatinine Est GFR ( Amer) Est GFR (Non-Af Amer) Random Glucose Calcium Total Bilirubin AST ALT Alkaline Phosphatase Troponin I NT-Pro-B Natriuret Pep Total Protein Albumin Globulin Albumin/Globulin Ratio Arterial Blood Potassium 3.3 L Urine Color Urine Clarity Urine pH Ur Specific [place] Urine Protein Urine Glucose (UA) Urine Ketones Urine Blood Urine Nitrate Urine Bilirubin Urine Urobilinogen Ur Leukocyte Esterase Urine WBC (Auto) Urine RBC (Auto) Ur Squamous Epith Cells Urine Bacteria Hyaline Casts Urine HCG, Qual Urine Opiates Screen Urine Methadone Screen Ur Barbiturates Screen Ur Phencyclidine Scrn Ur Amphetamines Screen U Benzodiazepines Scrn U Oth Cocaine Metabols U Cannabinoids Screen Alcohol, Quantitative 08/29/17 06:32 WBC RBC Hgb Hct MCV MCH MCHC RDW Plt Count MPV Neut % (Auto) Lymph % (Auto) [place] % (Auto) Eos % (Auto) Baso % (Auto) Neut # Lymph # [place] # Eos # Baso # Neutrophils % (Manual) Lymphocytes % (Manual) Monocytes % (Manual) Eosinophils % (Manual) Platelet Estimate Polychromasia Hypochromasia (manual) Anisocytosis (manual) Microcytosis (manual) PT 13.1 H INR 1.2 APTT 40 H D-Dimer, Quantitative Puncture Site pCO2 pO2 HCO3 ABG pH ABG Total CO2 ABG O2 Saturation ABG Base Excess ABG Hemoglobin ABG Carboxyhemoglobin POC ABG HHb (Measured) ABG Methemoglobin Clive Test ABG Potassium A-a O2 Difference Respiratory Index Hgb O2 Saturation Glucose Lactate Liter Flow Vent Mode Mechanical Rate FiO2 Tidal Volume PEEP Crit Value Called To Crit Value Called By Crit Value Read Back Blood Gas Notified Time Sodium Potassium Chloride Carbon Dioxide Anion Gap BUN Creatinine Est GFR ( Amer) Est GFR (Non-Af Amer) Random Glucose Calcium Total Bilirubin AST ALT Alkaline Phosphatase Troponin I NT-Pro-B Natriuret Pep Total Protein Albumin Globulin Albumin/Globulin Ratio Arterial Blood Potassium Urine Color Urine Clarity Urine pH Ur Specific [place] Urine Protein Urine Glucose (UA) Urine Ketones Urine Blood Urine Nitrate Urine Bilirubin Urine Urobilinogen Ur Leukocyte Esterase Urine WBC (Auto) Urine RBC (Auto) Ur Squamous Epith Cells Urine Bacteria Hyaline Casts Urine HCG, Qual Urine Opiates Screen Urine Methadone Screen Ur Barbiturates Screen Ur Phencyclidine Scrn Ur Amphetamines Screen U Benzodiazepines Scrn U Oth Cocaine Metabols U Cannabinoids Screen Alcohol, Quantitative
[2017-08-29 07:12] LABS: CHLORIDE 99 mmol/L (98-107); POTASSIUM 3.9 mmol/L (3.6-5.2); SODIUM 139 mmol/L (132-148)
[2017-08-29 07:14] LABS: BILIRUBIN,TOTAL 0.7 mg/dL (0.2-1.3); CARBON DIOXIDE 28 mmol/L (22-30); GFR AFRICAN-AMERICAN > 60
[2017-08-29 07:15] LABS: ALB/GLOB RATIO 0.7 (1.0-2.1); ALKALINE PHOSPHATASE 87 U/L (38-126); ALT/SGPT 47 U/L (9-52); AST/SGOT 33 U/L (14-36); BLOOD UREA NITROGEN 12 mg/dL (7-17); GLUCOSE,RANDOM 118 mg/dL (65-105); MAGNESIUM 1.8 mg/dL (1.6-2.3); PHOSPHOROUS 2.7 mg/dL (2.5-4.5); TOTAL PROTEIN 7.5 g/dL (6.3-8.3)
[2017-08-29] MEDS: Albuterol-Ipratrop 3 mg / 0.5 (3 ml) UD INH SCH ×3 (07:44→20:09)
--- NOTE | 2017-08-29 08:26 | RAD ---
HISTORY: tube placement COMPARISON: 08/28/2017 FINDINGS: LUNGS: NG tube extending into the stomach. Hyperinflation suggestive for emphysematous changes. Upper lobe granulomatous changes. Mild diffuse increased interstitial lung markings. PLEURA: No significant pleural effusion identified, no pneumothorax apparent. CARDIOVASCULAR: Normal. OSSEOUS STRUCTURES: No significant abnormalities. VISUALIZED UPPER ABDOMEN: Normal. OTHER FINDINGS: None. IMPRESSION: NG tube extending into the stomach. Hyperinflation suggestive for emphysematous changes. Upper lobe granulomatous changes. Mild diffuse increased interstitial lung markings.
--- NOTE | 2017-08-29 08:34 | RAD ---
Chest x-ray single frontal view History: Intubated. Comparison: 08/29/2017 Findings: NG tube extending into the stomach. Prominent diffuse increased interstitial lung markings. Consolidative changes seen in the right hilar and suprahilar regions. Scattered nodular densities in both lungs more prominent on the right. Heart size within normal limits. Degenerative changes the spine and shoulders. Impression: NG tube extending into the stomach. Prominent diffuse increased interstitial lung markings. Consolidative changes seen in the right hilar and suprahilar regions. Scattered nodular densities in both lungs more prominent on the right.
[2017-08-29 08:46] LABS: NEUTROPHIL 85 % (50-75); TOTAL CELLS COUNTED 100
[2017-08-29 08:48] LABS: LARGE PLATELETS PRESENT
[2017-08-29] MEDS: MethylPREDNISolone 40 mg Vial IVP SCH ×2 (11:00→19:19)
--- NOTE | 2017-08-29 14:12 | CP.PCM.HP ---
History of Present Illness - History of Present Illness History of Present Illness: COMPREHENSIVE HISTORY & PHYSICAL EXAM HPI PT ADMITTED INTUBATED SEC TO SOB AND WHEEZING DETAIL HISTORY NOT AVAILABLE PT HAS H/O ASTHMA AND DRUG ABUSE ECHO DONE IN 03/04 , NORMAL LV EF PAST HIST. PERSONAL HIS T N/A ROS : N/A P/E: Constitutional: Appears stated age INTUBATED Head: Normocephalic. Ears: External ear canals patent without inflammation. Tympanic membranes intact with normal light reflex and landmark. Eyes: Pupils are central, bilaterally equal, symmetrical and reacts to light with normal movements and no icterus or pallor. Nose: External nares are patent. Mucosa is pink Mouth-Throat: Good general appearance and condition. No post-pharyngeal/oropharyngeal erythema and tonsillar hypertrophy. Good dental hygiene. Neck-Lymphatic: Neck is supple with normal ROM, no thyromegaly, lymph nodes or masses. JVD is normal with no carotid bruit. Lungs: Clear to percussion and auscultation with bilateral normal air entry. RONCHI Cardiovascular: S1 and S2 are normal with no murmurs, gallops and rub. GI Exam: No hepatomegaly. Abdomen is soft and non-tender. No Organomegaly , masses or hernias are evident and bowel sounds are normal and active. Neurology: Higher function and all cranial nerves intact, with no gross motor or sensory deficit. Superficial and deep reflexes are normal with downwards planters. No cerebellar deficit with normal gait. Musculoskeletal: No tender spots with normal curvature of the spine with no swelling or restricted ROM of the small and large joints. Extremities: Homans sign absent. Intact pulses with no pitting edema, calf tenderness or skin color changes. Skin: No rash, eruptions or abnormal skin pigmentation LAB/RADIOLOGY: ASSESMENT : RESPIRATORY FAILURE SEC TO SEVERE HYPOEXEMIA FROM B. ASTHMA SUBSTANCE ABUSE PLAN: ICU PROTOCOL Present on Admission - Present on Admission Any Indicators Present on Admission: No Past Patient History - Infectious Disease Hx of Infectious Diseases: None - Past Medical History & Family History Past Medical History?: Yes - Past Social History Smoking Status: Never Smoked - CARDIAC Hx Cardiac Disorders: No - PULMONARY Hx Asthma: Yes - NEUROLOGICAL Hx Neurological Disorder: No - HEENT Hx HEENT Problems: No - RENAL Hx Chronic Kidney Disease: No - ENDOCRINE/METABOLIC Hx Endocrine Disorders: No - HEMATOLOGICAL/ONCOLOGICAL Hx Blood Disorders: No - INTEGUMENTARY Hx Dermatological Problems: No - MUSCULOSKELETAL/RHEUMATOLOGICAL Hx Musculoskeletal Disorders: No Hx Falls: No - GASTROINTESTINAL Hx Gastrointestinal Disorders: No - GENITOURINARY/GYNECOLOGICAL Hx Genitourinary Disorders: No - PSYCHIATRIC Hx Anxiety: Yes Hx Substance Use: Yes (IV heroin, Methadone and Xanax) - SURGICAL HISTORY Hx Surgeries: Yes Hx Section: Yes (X2) - ANESTHESIA Hx Anesthesia: Yes Hx Anesthesia Reactions: No Hx Malignant Hyperthermia: No Has any member of the family had a problem w/ anesthesia?: No Meds Allergies/Adverse Reactions: Allergies Allergy/AdvReac Type Severity Reaction Status Date / Time shrimp Allergy Severe ITCHING Verified 10/13/16 18:35 Results - Vital Signs Recent Vital Signs: Last Vital Signs Temp 97.6 F 08/29/17 12:00 Pulse 94 H 08/29/17 13:00 Resp 20 08/29/17 13:00 BP 134/93 H 08/29/17 12:43 Pulse Ox 98 08/29/17 13:00 - Labs Result Diagrams: 08/29/17 06:32 08/29/17 06:32 Labs: Laboratory Results - last 24 hr 08/28/17 08/28/17 08/28/17 22:05 22:05 22:32 WBC 11.1 H RBC 7.13 H Hgb 17.0 H Hct 53.8 H MCV 75.4 L MCH 23.9 L MCHC 31.6 L RDW 18.8 H Plt Count 286 MPV 9.2 Neut % (Auto) 34.5 L Lymph % (Auto) 26.4 Bryan % (Auto) 9.5 Eos % (Auto) 28.5 H Baso % (Auto) 1.1 Neut # 3.8 Lymph # 2.9 Bryan # 1.1 H Eos # 3.2 H Baso # 0.1 Neutrophils % (Manual) 26 L Band Neutrophils % Lymphocytes % (Manual) 40 Monocytes % (Manual) 2 Eosinophils % (Manual) 32 H Platelet Estimate Normal Large Platelets Polychromasia Slight Hypochromasia (manual) Slight Anisocytosis (manual) Slight Microcytosis (manual) Slight PT INR APTT D-Dimer, Quantitative Puncture Site Rra pCO2 78 H* pO2 123 H HCO3 31.1 H ABG pH 7.30 L ABG Total CO2 40.8 H ABG O2 Saturation 99.4 H ABG Base Excess 8.0 H ABG Hemoglobin 16.7 ABG Carboxyhemoglobin 3.3 H POC ABG HHb (Measured) 0.6 ABG Methemoglobin 1.5 Clive Test A ABG Potassium A-a O2 Difference Respiratory Index Hgb O2 Saturation 94.7 L Glucose Lactate Liter Flow Vent Mode Mechanical Rate FiO2 Tidal Volume PEEP Crit Value Called To [place] cheema md Crit Value Called By Tim cotton plastic surgeon Crit Value Read Back Y Blood Gas Notified Time 2237 Sodium 140 Potassium 3.8 Chloride 89 L Carbon Dioxide 37 H Anion Gap 18 BUN 21 H Creatinine 0.9 Est GFR ( Amer) > 60 Est GFR (Non-Af Amer) > 60 Random Glucose 120 H Calcium 9.4 Phosphorus Magnesium Total Bilirubin 0.8 AST 32 ALT 35 Alkaline Phosphatase 111 Troponin I < 0.0120 NT-Pro-B Natriuret Pep Total Protein 9.1 H Albumin 4.2 Globulin 4.9 H Albumin/Globulin Ratio 0.9 L Arterial Blood Potassium Urine Color Urine Clarity Urine pH Ur Specific [place] Urine Protein Urine Glucose (UA) Urine Ketones Urine Blood Urine Nitrate Urine Bilirubin Urine Urobilinogen Ur Leukocyte Esterase Urine WBC (Auto) Urine RBC (Auto) Ur Squamous Epith Cells Urine Bacteria Hyaline Casts Urine HCG, Qual Urine Opiates Screen Urine Methadone Screen Ur Barbiturates Screen Ur Phencyclidine Scrn Ur Amphetamines Screen U Benzodiazepines Scrn U Oth Cocaine Metabols U Cannabinoids Screen Alcohol, Quantitative < 10 08/28/17 08/29/17 08/29/17 22:47 00:43 00:56 WBC RBC Hgb Hct MCV MCH MCHC RDW Plt Count MPV Neut % (Auto) Lymph % (Auto) Bryan % (Auto) Eos % (Auto) Baso % (Auto) Neut # Lymph # Bryan # Eos # Baso # Neutrophils % (Manual) Band Neutrophils % Lymphocytes % (Manual) Monocytes % (Manual) Eosinophils % (Manual) Platelet Estimate Large Platelets Polychromasia Hypochromasia (manual) Anisocytosis (manual) Microcytosis (manual) PT INR APTT D-Dimer, Quantitative 658 H Puncture Site Rb pCO2 95 H* pO2 260 H HCO3 28.5 H ABG pH 7.20 L ABG Total CO2 40.0 H ABG O2 Saturation 100.0 H ABG Base Excess 4.7 H ABG Hemoglobin 16.4 ABG Carboxyhemoglobin 2.8 H POC ABG HHb (Measured) 0.0 ABG Methemoglobin 1.5 Clive Test Na ABG Potassium A-a O2 Difference Respiratory Index Hgb O2 Saturation 95.6 Glucose Lactate Liter Flow 8.0 Vent Mode Mechanical Rate FiO2 Tidal Volume PEEP Crit Value Called To Dr. cheema Crit Value Called By Sebas plastic surgeon Crit Value Read Back Y Blood Gas Notified Time 100 Sodium Potassium Chloride Carbon Dioxide Anion Gap BUN Creatinine Est GFR ( Amer) Est GFR (Non-Af Amer) Random Glucose Calcium Phosphorus Magnesium Total Bilirubin AST ALT Alkaline Phosphatase Troponin I NT-Pro-B Natriuret Pep 6400 H Total Protein Albumin Globulin Albumin/Globulin Ratio Arterial Blood Potassium Urine Color Urine Clarity Urine pH Ur Specific [place] Urine Protein Urine Glucose (UA) Urine Ketones Urine Blood Urine Nitrate Urine Bilirubin Urine Urobilinogen Ur Leukocyte Esterase Urine WBC (Auto) Urine RBC (Auto) Ur Squamous Epith Cells Urine Bacteria Hyaline Casts Urine HCG, Qual Urine Opiates Screen Urine Methadone Screen Ur Barbiturates Screen Ur Phencyclidine Scrn Ur Amphetamines Screen U Benzodiazepines Scrn U Oth Cocaine Metabols U Cannabinoids Screen Alcohol, Quantitative 08/29/17 08/29/17 08/29/17 01:57 01:57 01:57 WBC RBC Hgb Hct MCV MCH MCHC RDW Plt Count MPV Neut % (Auto) Lymph % (Auto) Bryan % (Auto) Eos % (Auto) Baso % (Auto) Neut # Lymph # Bryan # Eos # Baso # Neutrophils % (Manual) Band Neutrophils % Lymphocytes % (Manual) Monocytes % (Manual) Eosinophils % (Manual) Platelet Estimate Large Platelets Polychromasia Hypochromasia (manual) Anisocytosis (manual) Microcytosis (manual) PT INR APTT D-Dimer, Quantitative Puncture Site pCO2 pO2 HCO3 ABG pH ABG Total CO2 ABG O2 Saturation ABG Base Excess ABG Hemoglobin ABG Carboxyhemoglobin POC ABG HHb (Measured) ABG Methemoglobin Clive Test ABG Potassium A-a O2 Difference Respiratory Index Hgb O2 Saturation Glucose Lactate Liter Flow Vent Mode Mechanical Rate FiO2 Tidal Volume PEEP Crit Value Called To Crit Value Called By Crit Value Read Back Blood Gas Notified Time Sodium Potassium Chloride Carbon Dioxide Anion Gap BUN Creatinine Est GFR ( Amer) Est GFR (Non-Af Amer) Random Glucose Calcium Phosphorus Magnesium Total Bilirubin AST ALT Alkaline Phosphatase Troponin I NT-Pro-B Natriuret Pep Total Protein Albumin Globulin Albumin/Globulin Ratio Arterial Blood Potassium Urine Color Yellow Urine Clarity Clear Urine pH 5.0 Ur Specific [place] 1.015 Urine Protein 1+ H Urine Glucose (UA) Normal Urine Ketones Negative Urine Blood Trace Urine Nitrate Negative Urine Bilirubin Negative Urine Urobilinogen Normal Ur Leukocyte Esterase Neg Urine WBC (Auto) 2 Urine RBC (Auto) 1 Ur Squamous Epith Cells < 1 Urine Bacteria Rare Hyaline Casts 6-10 H Urine HCG, Qual Negative Urine Opiates Screen Positive Urine Methadone Screen Negative Ur Barbiturates Screen Negative Ur Phencyclidine Scrn Negative Ur Amphetamines Screen Negative U Benzodiazepines Scrn Positive U Oth Cocaine Metabols Negative U Cannabinoids Screen Negative Alcohol, Quantitative 08/29/17 08/29/17 08/29/17 02:06 05:23 06:32 WBC 7.2 RBC 6.19 H Hgb 14.9 D Hct 46.0 MCV 74.3 L MCH 24.0 L MCHC 32.3 L RDW 18.7 H Plt Count 178 D MPV 9.3 Neut % (Auto) 90.9 H Lymph % (Auto) 7.5 L Bryan % (Auto) 1.1 Eos % (Auto) 0.1 Baso % (Auto) 0.4 Neut # 6.6 Lymph # 0.5 L Bryan # 0.1 Eos # 0.0 Baso # 0.0 Neutrophils % (Manual) 85 H Band Neutrophils % 9 H Lymphocytes % (Manual) 5 L Monocytes % (Manual) 1 Eosinophils % (Manual) Platelet Estimate Normal Large Platelets Present Polychromasia Hypochromasia (manual) Anisocytosis (manual) Moderate Microcytosis (manual) PT INR APTT D-Dimer, Quantitative Puncture Site Rr Rr pCO2 74 H* 64 H pO2 514 H 638 H HCO3 27.3 30.4 H ABG pH 7.25 L 7.35 ABG Total CO2 34.8 H 37.3 H ABG O2 Saturation 100.6 H 99.2 H ABG Base Excess 2.9 7.1 H ABG Hemoglobin 15.3 ABG Carboxyhemoglobin 1.2 POC ABG HHb (Measured) 0.8 ABG Methemoglobin 1.5 Clive Test Pos Pos ABG Potassium 3.3 L A-a O2 Difference 107.0 -5.0 Respiratory Index 0.2 0 Hgb O2 Saturation 96.6 Glucose 192 H Lactate 1.0 Liter Flow Vent Mode Prvc Prvc Mechanical Rate 20 20 FiO2 100.0 100.0 Tidal Volume 450 450 PEEP 5 5 Crit Value Called To Dr. cheema Crit Value Called By Sebas plastic surgeon Crit Value Read Back Y Blood Gas Notified Time 214 Sodium 139.0 Potassium Chloride 106.0 Carbon Dioxide Anion Gap BUN Creatinine Est GFR ( Amer) Est GFR (Non-Af Amer) Random Glucose Calcium Phosphorus Magnesium Total Bilirubin AST ALT Alkaline Phosphatase Troponin I NT-Pro-B Natriuret Pep Total Protein Albumin Globulin Albumin/Globulin Ratio Arterial Blood Potassium 3.3 L Urine Color Urine Clarity Urine pH Ur Specific [place] Urine Protein Urine Glucose (UA) Urine Ketones Urine Blood Urine Nitrate Urine Bilirubin Urine Urobilinogen Ur Leukocyte Esterase Urine WBC (Auto) Urine RBC (Auto) Ur Squamous Epith Cells Urine Bacteria Hyaline Casts Urine HCG, Qual Urine Opiates Screen Urine Methadone Screen Ur Barbiturates Screen Ur Phencyclidine Scrn Ur Amphetamines Screen U Benzodiazepines Scrn U Oth Cocaine Metabols U Cannabinoids Screen Alcohol, Quantitative 08/29/17 08/29/17 06:32 06:32 WBC RBC Hgb Hct MCV MCH MCHC RDW Plt Count MPV Neut % (Auto) Lymph % (Auto) Bryan % (Auto) Eos % (Auto) Baso % (Auto) Neut # Lymph # Bryan # Eos # Baso # Neutrophils % (Manual) Band Neutrophils % Lymphocytes % (Manual) Monocytes % (Manual) Eosinophils % (Manual) Platelet Estimate Large Platelets Polychromasia Hypochromasia (manual) Anisocytosis (manual) Microcytosis (manual) PT 13.1 H INR 1.2 APTT 40 H D-Dimer, Quantitative Puncture Site pCO2 pO2 HCO3 ABG pH ABG Total CO2 ABG O2 Saturation ABG Base Excess ABG Hemoglobin ABG Carboxyhemoglobin POC ABG HHb (Measured) ABG Methemoglobin Clive Test ABG Potassium A-a O2 Difference Respiratory Index Hgb O2 Saturation Glucose Lactate Liter Flow Vent Mode Mechanical Rate FiO2 Tidal Volume PEEP Crit Value Called To Crit Value Called By Crit Value Read Back Blood Gas Notified Time Sodium 139 Potassium 3.9 Chloride 99 Carbon Dioxide 28 Anion Gap 16 BUN 12 Creatinine 0.4 L Est GFR ( Amer) > 60 Est GFR (Non-Af Amer) > 60 Random Glucose 118 H Calcium 8.0 L Phosphorus 2.7 Magnesium 1.8 Total Bilirubin 0.7 AST 33 ALT 47 Alkaline Phosphatase 87 Troponin I NT-Pro-B Natriuret Pep Total Protein 7.5 Albumin 3.2 L D Globulin 4.3 H Albumin/Globulin Ratio 0.7 L Arterial Blood Potassium Urine Color Urine Clarity Urine pH Ur Specific [place] Urine Protein Urine Glucose (UA) Urine Ketones Urine Blood Urine Nitrate Urine Bilirubin Urine Urobilinogen Ur Leukocyte Esterase Urine WBC (Auto) Urine RBC (Auto) Ur Squamous Epith Cells Urine Bacteria Hyaline Casts Urine HCG, Qual Urine Opiates Screen Urine Methadone Screen Ur Barbiturates Screen Ur Phencyclidine Scrn Ur Amphetamines Screen U Benzodiazepines Scrn U Oth Cocaine Metabols U Cannabinoids Screen Alcohol, Quantitative
[2017-08-29] MEDS ORDERED: oxyCODONE 10 mg ER Tab (oxyCONTIN) PO STA (22:09)
--- NOTE | 2017-08-29 22:16 | CP.PCM.PN ---
Subjective - Date & Time of Evaluation Date of Evaluation: 08/29/17 Time of Evaluation: 20:00 - Subjective Subjective: Patient self extubated at the change of sift, now alert and able to talk, not in distress, requested methadone, as she is very anxious for withdrawal. Had prolonged qtc on the admission ekg of 546. Methadone hence can not be given , will order single dose of long acting oxycodone, start prn clonidine, and clonazepam. Abx doxycycline added oral due to cxr suspicion of the infiltrates. Objective - Vital Signs/Intake and Output Vital Signs (last 24 hours): Temp Pulse Resp BP Pulse Ox 97.4 F L 100 H 24 141/97 H 87 L 08/29/17 20:00 08/29/17 21:10 08/29/17 21:10 08/29/17 20:43 08/29/17 21:10 Intake and Output: 08/29/17 08/30/17 18:59 06:59 Intake Total 332.0 61.5 Output Total 825 45 Balance -493.0 16.5 - Medications Medications: Current Medications Albuterol/Ipratropium (Duoneb 3 Mg/0.5 Mg (3 Ml) Ud) 3 ml INH RQ6 ANDERSON Last Admin: 08/29/17 20:09 Dose: 3 ml Doxycycline Hyclate (Doryx) 100 mg PO Q12H ANDERSON Lorazepam (Ativan) 1 mg IVP Q4H PRN PRN Reason: Agitation Last Admin: 08/29/17 21:53 Dose: 1 mg Methylprednisolone (Solu-Medrol) 60 mg IVP Q8H ANDERSON Last Admin: 08/29/17 19:19 Dose: 60 mg Pantoprazole Sodium (Protonix Inj) 40 mg IVP DAILY ANDERSON Last Admin: 08/29/17 09:12 Dose: 40 mg - Labs Labs: 08/29/17 06:32 08/29/17 06:32 PT 13.1 SECONDS (9.7-12.2) H 08/29/17 06:32 INR 1.2 08/29/17 06:32 APTT 40 SECONDS (21-34) H 08/29/17 06:32
[2017-08-30] MEDS: Albuterol-Ipratrop 3 mg / 0.5 (3 ml) UD INH SCH ×3 (01:51→13:24)
[2017-08-30] MEDS: MethylPREDNISolone 40 mg Vial IVP SCH ×2 (03:56→10:00)
[2017-08-30] MEDS ORDERED: MethylPREDNISolone 40 mg Vial IVP SCH (10:30)
[2017-08-30 11:26] VITALS: O2SAT 91
[2017-08-30 12:08] VITALS: RESP 26
[2017-08-30 12:22] VITALS: TEMP 97.7
--- NOTE | 2017-08-30 12:54 | CP.CCUPN ---
<Valentina Jin E - Last Filed: 08/30/17 14:54> CCU Subjective - Physician Review Events Since Last Encounter (Free Text): No acute issues Subjective (Free Text): Patient was seen and examined at bedside. Patient reports that she is doing well and has no complaints. Patient denies chest pain, palpitations, SOB, fever , chills, nausea, vomiting and cough. Patient expresses that she wants to go home and willing to leave the hospital against medical advice. I explained to patient that is imperative that she remains in the hospital as she is not medically stable and needs more pulmonary treatment. Patient disagrees at the moment. CCU Objective - Vital Signs / Intake & Output Vital Signs (Last 4 hours): Vital Signs Temp Pulse Resp BP Pulse Ox 08/30/17 12:00 97.7 F 86 26 H 08/30/17 11:43 82 29 H 139/99 H 08/30/17 11:00 76 28 H 08/30/17 10:00 91 H 21 91 L 08/30/17 09:43 85 17 127/89 92 L 08/30/17 09:00 77 28 H 90 L Intake and Output (Last 8hrs): Intake & Output 08/29/17 08/30/17 08/30/17 22:59 06:59 14:59 Intake Total 267.5 170 400 Output Total 295 400 200 Balance -27.5 -230 200 Weight 93 lb 12.8 oz Intake: IV 60 Intake, IV Amount 57.5 Left Antecubital 57.5 Oral 150 170 400 Output: Urine 295 400 200 Urethral (Yanez) 295 Urine, Voided 0 400 200 Other: # Voids Urine, Voided 1 - Physical Exam Head: Positive for: Atraumatic Extroacular Muscles: Positive for: EOMI Neck: Positive for: Normal Range of Motion Respiratory/Chest: Positive for: Wheezes. Negative for: Respiratory Distress, Accessory Muscle Use Cardiovascular: Positive for: Regular Rate and Rhythm, Normal S1, S2 Abdomen: Positive for: Normal Bowel Sounds. Negative for: Tenderness, Distention Upper Extremity: Positive for: Normal Inspection Lower Extremity: Positive for: Normal Inspection Neurological: Positive for: GCS=15, Speech Normal Skin: Positive for: Normal Color Psychiatric: Positive for: Alert, Oriented x 3 - Medications Active Medications: Active Medications Generic Name Dose Route Start Last Admin Trade Name Freq PRN Reason Stop Dose Admin Albuterol/Ipratropium 3 ml 08/29/17 08:00 08/30/17 07:27 Duoneb 3 Mg/0.5 Mg (3 Ml) Ud INH 3 ml RQ6 ANDERSON Administration Clonazepam 0.5 mg 08/30/17 10:00 08/30/17 09:03 Klonopin PO 0.5 mg BID ANDERSON Administration Clonidine HCl 0.1 mg 08/29/17 22:11 08/30/17 00:04 Catapres PO 0.1 mg Q8 PRN Administration Anxiety Doxycycline Hyclate 100 mg 08/29/17 22:15 08/30/17 09:15 Doryx PO 100 mg Q12H ANDERSON Administration Famotidine 20 mg 08/30/17 10:30 08/30/17 10:22 Pepcid PO Not Given DAILY ANDERSON Lorazepam 1 mg 08/29/17 10:33 08/30/17 09:59 Ativan IVP 1 mg Q4H PRN Administration Agitation Methylprednisolone 60 mg 08/30/17 10:30 08/30/17 10:22 Solu-Medrol IVP Not Given Q12 ANDERSON - Patient Studies Lab Studies: Microbiology Studies 08/29/17 03:00 MRSA Culture (Admit) - Final Nose MRSA NOT DETECTED EKG/Cardiology Studies: Cardiology / EKG Studies 08/29/17 22:10 ELECTROCARDIOGRAM Stat Comment: Mode Of Transportation: Reason For Exam: prolonged qt Review of Systems - Constitutional Constitutional: absent: Fever, Chills, Sweats, Weakness - EENT Eyes: absent: Blurred Vision, Change in Vision Ears: absent: Dizziness - Cardiovascular Cardiovascular: absent: Chest Pain, Dyspnea, Lightheadedness, Palpitations, Syncope - Respiratory Respiratory: Wheezing. absent: Dyspnea - Gastrointestinal Gastrointestinal: absent: Abdominal Pain, Nausea, Vomiting - Neurological Neurological: absent: Dizziness, Headaches, Syncope, Tingling, Weakness - Psychiatric Psychiatric: Anxiety - Endocrine Endocrine: Fatigue. absent: Palpitations Critical Care Progress Note - Ventilator Checklist Head of Bed 30 Degrees: No Daily Sedation Vacation: No Daily Assessment of Readiness to Wean: No Daily Spontaneous Breathing Trial: No PUD Prophalyxis: Yes DVT Prophylaxis: No - Nutrition Nutrition: Nutrition Category Date Time Status Regular Diet [DIET] Diets 08/30/17 Breakfast Active Assessment/Plan - Assessment and Plan (Free Text) Assessment: 27-year-old female with history of asthma, drug abuse admitted with acute respiratory failure. Today: Plan: Continue current medical management. Patient wants to leave against medical advice. Plan: Neuro: Alert, awake and oriented Cardio: No acute issues Pulm: Respiratory distress due to asthma exacerbation * Initially intubated, but self-extubate * Duonebs 3ml RQ6 * Solumedrol 60mg IVP Q12H * Doxycycline 100mg PO Q12H GI: No acute issues Endo: No acute issues ID: No acute issues Psych: History of anxiety and substance abuse Psychiatry consult, Dr. Lord----> Help appreciated * Management as per recommendation Medication/Management: * Klonopin 0.5mg PO BID * Catapres 0.1mg PO Q8 PRN * Ativan 1mg IVP Q4H PRN Prophylaxis: DVT: SCDS GI: Pepcid 20mg PO daily <Omari Bullock - Last Filed: 09/04/17 00:06> CCU Objective - Patient Studies Lab Studies: Microbiology Studies 08/28/17 23:00 Blood Culture - Final Blood NO GROWTH AFTER 5 DAYS Gram Stain - Final TEST NOT PERFORMED 08/28/17 23:30 Blood Culture - Final Blood NO GROWTH AFTER 5 DAYS Gram Stain - Final TEST NOT PERFORMED Critical Care Progress Note - Nutrition Nutrition: Nutrition Category Date Time Status Regular Diet [DIET] Diets 08/30/17 Breakfast Active Attending/Attestation - Attestation I have personally seen and examined this patient.: Yes I have fully participated in the care of the patient.: Yes I have reviewed all pertinent clinical information: Yes Notes (Text): 08/30/17 Today: Saturday, August 30, 2017 The Patient was seen and examined at the bedside, Medical records reviewed, and management issues were discussed and formulated with the house staff. I have reviewed all the relevant clinical, laboratory, hemodynamic, radiographic data and medications Events reviewed Pain issues, skin care, head of the bed elevation, glycemic control were addressed. Patient extubated yesterday, doing better today req=ueting ti sign AMA, discussed with her the diagnosis, treatement plans and need for further hospitalization, she adamant about signing AMA, was evalyated by Psych I concur with resident's assessment and plan of care as transcribed in Dr. Jin note.
--- NOTE | 2017-08-30 13:29 | PCM.PSYCH ---
Initial Psychiatric Evaluation - Initial Psychiatric Evaluation Type of Admission: Voluntary Legal Status: Capacity Chief Complaint (in patient's own words): "I'm OK" History of Present Illness and Precipitating Events: A 27 year old female with a past medical history of opioid use and asthma arrived to ICU for overdose 2 days ago. Pt admitted to injecting 10 bags of heroin and 1 pill of xanax. Pt denies any suicidal or homicidal ideations. Denies any depressive symptoms. Denies hearing voices or having racing thoughts. PT requsts to be discharged from the hospital. Pt is known to life underwriter from prior admission. She wants to follow up with methadone clinic - info given Past psych hx: Trauma, depression/anxiety, many substance abuse treatments on and off Medical: Hep C family psych hx: unknown Current Medications: Active Medications Generic Name Dose Route Start Last Admin Trade Name Freq PRN Reason Stop Dose Admin Albuterol/Ipratropium 3 ml 08/29/17 08:00 08/30/17 13:24 Duoneb 3 Mg/0.5 Mg (3 Ml) Ud INH 3 ml RQ6 ANDERSON Administration Clonazepam 0.5 mg 08/30/17 10:00 08/30/17 09:03 Klonopin PO 0.5 mg BID ANDERSON Administration Clonidine HCl 0.1 mg 08/29/17 22:11 08/30/17 00:04 Catapres PO 0.1 mg Q8 PRN Administration Anxiety Doxycycline Hyclate 100 mg 08/29/17 22:15 08/30/17 09:15 Doryx PO 100 mg Q12H ANDERSON Administration Famotidine 20 mg 08/30/17 10:30 08/30/17 10:22 Pepcid PO Not Given DAILY ANDERSON Lorazepam 1 mg 08/29/17 10:33 08/30/17 09:59 Ativan IVP 1 mg Q4H PRN Administration Agitation Methylprednisolone 60 mg 08/30/17 10:30 08/30/17 10:22 Solu-Medrol IVP Not Given Q12 ANDERSON Past Psychiatric History - Past Psychiatric History Previous Treatment History: None Pertinent Medical Hx (Current Medical&Sleep Prob, Allergies): Allergies Allergy/AdvReac Type Severity Reaction Status Date / Time shrimp Allergy Severe ITCHING Verified 10/13/16 18:35 Albuterol 0.083% [Albuterol 0.083% Inhal Jenny (2.5 mg/3 ml) UD] 2.5 mg INH RQ2 PRN #100 neb 03/07/17 Albuterol/Ipratropium [Combivent Respimat] 1 puff IH QID #1 inhaler 03/07/17 Fluticasone/Salmeterol 250/50 [Advair Diskus 250/50] 2 puff INH QID #30 puff Montelukast [Singulair] 10 mg PO HS #30 tab 03/07/17 Review of Systems - Neurological Neurological: UNREMARKABLE - Psychiatric Psychiatric: absent: Auditory Hallucinations, Confusion, Depression, Difficulty Concentrating, Hallucinations, Homicidal Ideation, Suicidal Ideation, Visual Hallucinations Mental Status Examination - Personal Presentation Personal Presentation: Looks older than stated age - Affect Affect: Constricted - Motor Activity Motor Activity: Psychomotor Agitation - Reliability in Providing Information Reliability in Providing Information: Fair - Speech Speech: Organized - Mood Mood: Anxious - Formal Thought Process Formal Thought Process: No Impairment - Obsessions/Compulsions Obsessions: No Compulsions: No - Cognitive Functions Orientation: Person, Place, Situation, Time Sensorium: Alert Attention/Concentration: Attentive Estimate of Intelligence: Average Judgement: Imparied, as evidence by: Lack of insight into illness Memory: Recent intact, as evidence by: Ability to recall events of the day, Remote intact, as evidenced by: Abilit to recall sig. life events - Risk Risk: Withdrawal, Diminished functioning - Strength & Assets Inventory Strength & Assets Inventory: Cooperative - Limitations Limitations: Other (homeless) DSM 5 DX - DSM 5 DSM 5 Diagnosis: Opiate Use Disorder - severe Opioid withdrawal Personality d/o Anxiety d/o - Recommended/Plan of Treatment Treatment Recommendations and Plan of Treatment: Discussed reaching out to local methadone programs in the area after discharge. Return to ER or call 911 if suicidal, homicidal or symptoms relapse. Stay away from stress, alcohol and drugs. See primary doctor regularly and get labs. Prognosis: Fair
--- NOTE | 2017-08-30 13:51 | CP.PCM.PN ---
Subjective - Date & Time of Evaluation Date of Evaluation: 08/30/17 Time of Evaluation: 13:50 - Subjective Subjective: SELF EXTUBATION RESTLESS FOR METHADONE VS STABLE PSYCH CLEARED PT TRANSFER TO FLOOR Objective - Vital Signs/Intake and Output Vital Signs (last 24 hours): Temp Pulse Resp BP Pulse Ox 97.7 F 86 26 H 139/99 H 91 L 08/30/17 12:00 08/30/17 12:00 08/30/17 12:00 08/30/17 11:43 08/30/17 10:00 Intake and Output: 08/30/17 08/30/17 11:59 23:59 Intake Total 450 0 Output Total 200 0 Balance 250 0 - Medications Medications: Current Medications Albuterol/Ipratropium (Duoneb 3 Mg/0.5 Mg (3 Ml) Ud) 3 ml INH RQ6 [facility] Last Admin: 08/30/17 13:24 Dose: 3 ml Clonazepam (Klonopin) 0.5 mg PO BID [facility] Last Admin: 08/30/17 09:03 Dose: 0.5 mg Clonidine HCl (Catapres) 0.1 mg PO Q8 PRN PRN Reason: Anxiety Last Admin: 08/30/17 00:04 Dose: 0.1 mg Doxycycline Hyclate (Doryx) 100 mg PO Q12H [facility] Last Admin: 08/30/17 09:15 Dose: 100 mg Famotidine (Pepcid) 20 mg PO DAILY [facility] Last Admin: 08/30/17 10:22 Dose: Not Given Lorazepam (Ativan) 1 mg IVP Q4H PRN PRN Reason: Agitation Last Admin: 08/30/17 09:59 Dose: 1 mg Methylprednisolone (Solu-Medrol) 60 mg IVP Q12 [facility] Last Admin: 08/30/17 10:22 Dose: Not Given - Labs Labs: 08/29/17 06:32 08/29/17 06:32 PT 13.1 SECONDS (9.7-12.2) H 08/29/17 06:32 INR 1.2 08/29/17 06:32 APTT 40 SECONDS (21-34) H 08/29/17 06:32
[2017-08-30 15:12] VITALS: BP 140/93; PULSE 77
--- NOTE | 2017-08-31 14:03 | CP.PCM.DIS ---
Provider - Provider Date of Admission: 08/29/17 01:39 Attending physician: Anjana Abdalla MD Time Spent in preparation of Discharge (in minutes): 30 Hospital Course - Lab Results Lab Results: Micro Results 08/28/17 23:00 Blood Blood Culture - Preliminary NO GROWTH AFTER 24 HOURS 08/28/17 23:30 Blood Blood Culture - Preliminary NO GROWTH AFTER 24 HOURS 08/29/17 03:00 Nose MRSA Culture (Admit) - Final MRSA NOT DETECTED Most Recent Lab Values WBC 7.2 K/uL (4.8-10.8) 08/29/17 06:32 RBC 6.19 Mil/uL (3.80-5.20) H 08/29/17 06:32 Hgb 14.9 g/dL (11.0-16.0) D 08/29/17 06:32 Hct 46.0 % (34.0-47.0) 08/29/17 06:32 MCV 74.3 fL (81.0-99.0) L 08/29/17 06:32 MCH 24.0 pg (27.0-31.0) L 08/29/17 06:32 MCHC 32.3 g/dL (33.0-37.0) L 08/29/17 06:32 RDW 18.7 % (11.5-14.5) H 08/29/17 06:32 Plt Count 178 K/uL (130-400) D 08/29/17 06:32 MPV 9.3 fL (7.2-11.7) 08/29/17 06:32 Neut % (Auto) 90.9 % (50.0-75.0) H 08/29/17 06:32 Lymph % (Auto) 7.5 % (20.0-40.0) L 08/29/17 06:32 [place] % (Auto) 1.1 % (0.0-10.0) 08/29/17 06:32 Eos % (Auto) 0.1 % (0.0-4.0) 08/29/17 06:32 Baso % (Auto) 0.4 % (0.0-2.0) 08/29/17 06:32 Neut # 6.6 K/uL (1.8-7.0) 08/29/17 06:32 Lymph # 0.5 K/uL (1.0-4.3) L 08/29/17 06:32 [place] # 0.1 K/uL (0.0-0.8) 08/29/17 06:32 Eos # 0.0 K/uL (0.0-0.7) 08/29/17 06:32 Baso # 0.0 K/uL (0.0-0.2) 08/29/17 06:32 Neutrophils % (Manual) 85 % (50-75) H 08/29/17 06:32 Band Neutrophils % 9 % (0-2) H 08/29/17 06:32 Lymphocytes % (Manual) 5 % (20-40) L 08/29/17 06:32 Monocytes % (Manual) 1 % (0-10) 08/29/17 06:32 Eosinophils % (Manual) 32 % (0-4) H 08/28/17 22:05 Platelet Estimate Normal (NORMAL) 08/29/17 06:32 Large Platelets Present 08/29/17 06:32 Polychromasia Slight 08/28/17 22:05 Hypochromasia (manual) Slight 08/28/17 22:05 Anisocytosis (manual) Moderate 08/29/17 06:32 Microcytosis (manual) Slight 08/28/17 22:05 PT 13.1 SECONDS (9.7-12.2) H 08/29/17 06:32 INR 1.2 08/29/17 06:32 APTT 40 SECONDS (21-34) H 08/29/17 06:32 D-Dimer, Quantitative 658 ng/mlDDU (0-243) H 08/28/17 22:47 Puncture Site Rr 08/29/17 05:23 pCO2 64 mm/Hg (35-45) H 08/29/17 05:23 pO2 638 mm/Hg (80-100) H 08/29/17 05:23 HCO3 30.4 mmol/L (21-28) H 08/29/17 05:23 ABG pH 7.35 (7.35-7.45) 08/29/17 05:23 ABG Total CO2 37.3 mmol/L (22-28) H 08/29/17 05:23 ABG O2 Saturation 99.2 % (95-98) H 08/29/17 05:23 ABG Base Excess 7.1 mmol/L (-2.0-3.0) H 08/29/17 05:23 ABG Hemoglobin 15.3 g/dL (11.7-17.4) 08/29/17 05:23 ABG Carboxyhemoglobin 1.2 % (0.5-1.5) 08/29/17 05:23 POC ABG HHb (Measured) 0.8 % (0.0-5.0) 08/29/17 05:23 ABG Methemoglobin 1.5 % (0.0-3.0) 08/29/17 05:23 Clive Test Pos 08/29/17 05:23 ABG Potassium 3.3 mmol/L (3.6-5.2) L 08/29/17 02:06 A-a O2 Difference -5.0 mm/Hg 08/29/17 05:23 Respiratory Index 0 08/29/17 05:23 Hgb O2 Saturation 96.6 % (95.0-98.0) 08/29/17 05:23 Sodium 139.0 mmol/l (132-148) 08/29/17 02:06 Chloride 106.0 mmol/L (98-107) 08/29/17 02:06 Glucose 192 mg/dl (65-105) H 08/29/17 02:06 Lactate 1.0 mmol/L (0.7-2.1) 08/29/17 02:06 Liter Flow 8.0 08/29/17 00:56 Vent Mode Prvc 08/29/17 05:23 Mechanical Rate 20 08/29/17 05:23 FiO2 100.0 % 08/29/17 05:23 Tidal Volume 450 08/29/17 05:23 PEEP 5 08/29/17 05:23 Crit Value Called To Dr. cheema 08/29/17 02:06 Crit Value Called By [employer] cloud systems architect 08/29/17 02:06 Crit Value Read Back Y 08/29/17 02:06 Blood Gas Notified Time 214 08/29/17 02:06 Sodium 139 mmol/L (132-148) 08/29/17 06:32 Potassium 3.9 mmol/L (3.6-5.2) 08/29/17 06:32 Chloride 99 mmol/L (98-107) 08/29/17 06:32 Carbon Dioxide 28 mmol/L (22-30) 08/29/17 06:32 Anion Gap 16 (10-20) 08/29/17 06:32 BUN 12 mg/dL (7-17) 08/29/17 06:32 Creatinine 0.4 mg/dL (0.7-1.2) L 08/29/17 06:32 Est GFR ( Amer) > 60 08/29/17 06:32 Est GFR (Non-Af Amer) > 60 08/29/17 06:32 Random Glucose 118 mg/dL (65-105) H 08/29/17 06:32 Calcium 8.0 mg/dl (8.6-10.4) L 08/29/17 06:32 Phosphorus 2.7 mg/dL (2.5-4.5) 08/29/17 06:32 Magnesium 1.8 mg/dL (1.6-2.3) 08/29/17 06:32 Total Bilirubin 0.7 mg/dL (0.2-1.3) 08/29/17 06:32 AST 33 U/L (14-36) 08/29/17 06:32 ALT 47 U/L (9-52) 08/29/17 06:32 Alkaline Phosphatase 87 U/L (38-126) 08/29/17 06:32 Troponin I < 0.0120 ng/mL (0.00-0.120) 08/28/17 22:05 NT-Pro-B Natriuret Pep 6400 pg/mL (0-450) H 08/29/17 00:43 Total Protein 7.5 g/dL (6.3-8.3) 08/29/17 06:32 Albumin 3.2 g/dL (3.5-5.0) L D 08/29/17 06:32 Globulin 4.3 gm/dL (2.2-3.9) H 08/29/17 06:32 Albumin/Globulin Ratio 0.7 (1.0-2.1) L 08/29/17 06:32 Arterial Blood Potassium 3.3 mmol/L (3.6-5.2) L 08/29/17 02:06 Urine Color Yellow (YELLOW) 08/29/17 01:57 Urine Clarity Clear (Clear) 08/29/17 01:57 Urine pH 5.0 (5.0-8.0) 08/29/17 01:57 Ur Specific [place] 1.015 (1.003-1.030) 08/29/17 01:57 Urine Protein 1+ mg/dL (NEGATIVE) H 08/29/17 01:57 Urine Glucose (UA) Normal mg/dL (Normal) 08/29/17 01:57 Urine Ketones Negative mg/dL (NEGATIVE) 08/29/17 01:57 Urine Blood Trace (NEGATIVE) 08/29/17 01:57 Urine Nitrate Negative (NEGATIVE) 08/29/17 01:57 Urine Bilirubin Negative (NEGATIVE) 08/29/17 01:57 Urine Urobilinogen Normal mg/dL (0.2-1.0) 08/29/17 01:57 Ur Leukocyte Esterase Neg [place]/uL (Negative) 08/29/17 01:57 Urine WBC (Auto) 2 /hpf (0-5) 08/29/17 01:57 Urine RBC (Auto) 1 /hpf (0-3) 08/29/17 01:57 Ur Squamous Epith Cells < 1 /hpf (0-5) 08/29/17 01:57 Urine Bacteria Rare (<OCC) 08/29/17 01:57 Hyaline Casts 6-10 /lpf (0-2) H 08/29/17 01:57 Urine HCG, Qual Negative (NEGATIVE) 08/29/17 01:57 Urine Opiates Screen Positive (NEGATIVE) 08/29/17 01:57 Urine Methadone Screen Negative (NEGATIVE) 08/29/17 01:57 Ur Barbiturates Screen Negative (NEGATIVE) 08/29/17 01:57 Ur Phencyclidine Scrn Negative (NEGATIVE) 08/29/17 01:57 Ur Amphetamines Screen Negative (NEGATIVE) 08/29/17 01:57 U Benzodiazepines Scrn Positive (NEGATIVE) 08/29/17 01:57 U Oth Cocaine Metabols Negative (NEGATIVE) 08/29/17 01:57 U Cannabinoids Screen Negative (NEGATIVE) 08/29/17 01:57 Alcohol, Quantitative < 10 mg/dl (0-10) 08/28/17 22:05 - Hospital Course Hospital Course: T ADMITTED INTUBATED SEC TO SOB AND WHEEZING DETAIL HISTORY NOT AVAILABLE PT HAS H/O ASTHMA AND DRUG ABUSE ECHO DONE IN 03/04 , NORMAL LV EF PT. SELF EXTUBATED NEXT DAY PT SIGNED OUT AMA DID NOT TAKE RX. Discharge Plan - Follow Up Plan Condition: GUARDED Disposition: AGAINST MEDICAL ADVICE Referrals: Liz Arvizu MD [Staff Provider] -
--- NOTE | 2017-09-01 18:42 | CARD ---
APPROVED REPORT EKG Measurement Heart [id number] [id number] <Conclusion> Sinus tachycardia T wave abnormality, consider anterior ischemia Prolonged QT Abnormal ECG
--- NOTE | 2017-09-02 12:45 | CARD ---
APPROVED REPORT EKG Measurement Heart [id number] [place] [id number] [id number] <Conclusion> Sinus rhythm with marked sinus arrhythmia Prolonged QT Abnormal ECG
== END 2017-08-30 15:05 | disposition left against medical advice (07) | DRG 208 ==
LOC: C.ER 21:37 → C.9I 08-29 01:39
PROVIDERS: ADMIT Internal Medicine Cardiovascular Disease; ATTEND Internal Medicine Cardiovascular Disease
PROC: 5A1935Z Respiratory Ventilation, Less than 24 Consecutive Hours (ICD-10-PCS; principal; 2017-08-29)
PROC: 0BH17EZ Insertion of Endotracheal Airway into Trachea, Via Natural or Artificial Opening (ICD-10-PCS; 2017-08-29)
DX: J45.902 Unspecified asthma with status asthmaticus (principal); J96.01 Acute respiratory failure with hypoxia; F11.23 Opioid dependence with withdrawal; F41.9 Anxiety disorder, unspecified; B19.20 Unspecified viral hepatitis C without hepatic coma; F32.9 Major depressive disorder, single episode, unspecified; F17.210 Nicotine dependence, cigarettes, uncomplicated

== ENCOUNTER 2017-12-25 15:46 | Inpatient (IN) | payer MEDICARE, MEDICAID ==
[2017-12-25 15:46] VITALS: BMI 17.9
[2017-12-25] MEDS ORDERED: Albuterol-Ipratrop 3 mg / 0.5 (3 ml) UD INH STA (16:10)
[2017-12-25] MEDS ORDERED: Albuterol-Ipratrop 3 mg / 0.5 (3 ml) UD ONE ×2 (16:11→17:15)
[2017-12-25] MEDS ORDERED: Albuterol-Ipratrop 3 mg / 0.5 (3 ml) UD IH STA (16:43)
--- NOTE | 2017-12-25 17:00 | C.PDOC ---
History Of Present Illness 27 y/o female, with history of asthma, presents to the ER complaining that she has non-productive cough and trouble breathing for the past several days. Patient states that she has SOB on exertion. She is not responding to Albuterol treatment at home with the nebulizer. Patient states that she has been admitted and intubated in the hospital multiple times in the past. She had her last course of Prednisone when she was admitted several months ago. She denies having any fever, chills, and other URI symptoms. Of note, patient has a history of heroin, methadone, and benzodiazepines abuse. Time Seen by Provider: 12/25/17 16:18 Chief Complaint (Nursing): Cough, Cold, Congestion History Per: Patient History/Exam Limitations: no limitations Onset/Duration Of Symptoms: Days Current Symptoms Are (Timing): Still Present Severity: Moderate Past Medical History Reviewed: Historical Data, Nursing Documentation, Vital Signs Vital Signs: Last Vital Signs Temp 98.5 F 12/25/17 20:46 Pulse 91 H 12/25/17 20:46 Resp 18 12/25/17 20:46 BP 144/86 12/25/17 20:46 Pulse Ox 95 12/25/17 20:46 - Medical History PMH: Anxiety, Asthma Denies: Chronic Kidney Disease Other Surgeries: Hx of surgeries - [facility] Procedures CONTINUOUS INVASIVE MECHANICAL VENTILATION <96 CONSEC HRS (12/16/13) DETOXIFICATION SERVICES FOR SUBSTANCE ABUSE TREATMENT (04/14/17) INSERT ENDOTRACHEAL TUBE (12/16/13) INSERTION OF ENDOTRACHEAL AIRWAY INTO TRACHEA, VIA OPENING (08/29/17) MEDS [facility] FOR SUBSTANCE ABUSE TREATMENT, METHADONE MAINT (03/01/17) OTHER SKIN & SUBQ I D (06/14/13) RESPIRATORY VENTILATION, LESS THAN 24 CONSECUTIVE HOURS (08/29/17) TETANUS TOXOID ADMINIST (06/14/13) Family History: States: No Known Family Hx - Social History Hx Tobacco Use: (UNKNOWN) Hx Alcohol Use: No Hx Substance Use: Yes (IV heroin, Methadone and Xanax) - Immunization History Hx Tetanus Toxoid Vaccination: No Hx Influenza Vaccination: No Hx Pneumococcal Vaccination: No Review Of Systems Except As Marked, All Systems Reviewed And Found Negative. Constitutional: Negative for: Fever, Chills Respiratory: Positive for: Cough, Shortness of Breath Physical Exam - Physical Exam Appears: No Acute Distress Skin: Normal Color, Warm Head: Atraumatic, Normacephalic Eye(s): bilateral: Normal Inspection Nose: Normal Oral Mucosa: Moist Neck: Supple Chest: Symmetrical Cardiovascular: Rhythm Regular Respiratory: Normal Breath Sounds, Rhonchi (coarse rhonchi on expiration), Wheezing (diffuse wheezing on expiration) Extremity: Normal ROM Neurological/Psych: Oriented x3, Normal Speech, Normal Motor, Normal Sensation ED Course And Treatment - Laboratory Results Result Diagrams: 12/25/17 17:07 12/25/17 17:07 Lab Interpretation: No Acute Changes O2 Sat by Pulse Oximetry: 96 (RA) Pulse Ox Interpretation: Normal - Radiology CXR: Viewed By Me, Read By Radiologist CXR Interpretation: Yes: Other (prominent interstitial markings, ? nodular densities.) - CT Scan/US CT chest Other Rad Studies (CT/US): Read By Radiologist, Radiology Report Reviewed CT/US Interpretation: Accession No. : [id number]. Patient Name / ID : CHRISTIANE OTERO / [id number]. Exam Date : 12/25/2017 18:33:02 ( Approved ). Study Comment : Sex / Age : F / 27Y. Creator : Sandy Correa MD. Dictator : Sandy Correa MD. Crisis Mental Health Therapist : Edging Supervisor : Sandy Correa MD. Approver2 : Report Date : 12/25/2017 18:53:33. My Comment : . PROCEDURE: CT Chest without contrast. HISTORY: lung nodule, ? infiltrate. COMPARISON: None. TECHNIQUE: Contiguous axial images were obtained through the chest without intravenous contrast enhancement. Sagittal and coronal reconstructions were performed. . Radiation dose (DLP): 141.21 mGy-cm. This CT exam was performed using one or more of the following dose reduction techniques: Automated exposure control, adjustment of the mA and/or kV according to patient size, and/or use of iterative reconstruction technique. FINDINGS: LUNGS: There are reticular and reticulonodular opacities at the bilateral upper lobes noted associated with mild bronchiectasis. Findings are nonspecific and may represent sequela of infectious or inflammatory process. Foci of ground-glass opacity are also noted in the upper lobes and right middle lobe. MEDIASTINUM: Unremarkable thoracic aorta. No aneurysm. The heart is mildly enlarged. The main pulmonary artery is mildly to moderately enlarged measures up to 3.7 centimeter. Mild mediastinal lymphadenopathy noted. PLEURA: No pleural fluid. No pneumothorax. BONES: No fracture. No destructive lesion. UPPER ABDOMEN: Grossly unremarkable. OTHER FINDINGS: None. IMPRESSION: Nonspecific reticular and reticulonodular opacities more prominent at the upper lobes. The differential consideration includes sequela of infection or inflammatory process. Patchy ground-glass opacities noted in the upper lobes and right middle lobe. Mild cardiomegaly. [id number] enlarged main pulmonary artery suggestive of pulmonary hypertension. Mild mediastinal lymphadenopathy. Progress Note: Patient is currently homeless and requesting detox from heroin. She is medically cleared for admission and accepted by Dr Salgado for detox. Reevaluation Time: 19:17 Reassessment Condition: Improved Medical Decision Making Medical Decision Making: Plan: --Labs --CXR --Duoneb --Nebulizer Disposition - Disposition Disposition: HOSPITALIZED Disposition Time: 22:03 Condition: STABLE Forms: [facility] (Romanian) - POA Present On Arrival: None - Clinical Impression Clinical Impression: Opiate dependence, continuous, Exacerbation of asthma - Scribe Statement The provider has reviewed the documentation as recorded by the Ottoniel Muhammad Provider Attestation: All medical record entries made by the Ottoniel were at my direction and personally dictated by me. I have reviewed the chart and agree that the record accurately reflects my personal performance of the history, physical exam, medical decision making, and the department course for this patient. I have also personally directed, reviewed, and agree with the discharge instructions and disposition.
[2017-12-25 17:12] LABS: BASO # 0.1 K/uL (0.0-0.2); BASO % 1.2 % (0.0-2.0); EOS # 0.6 K/uL (0.0-0.7); EOS % 8.4 % (0.0-4.0); HEMOGLOBIN 15.5 g/dL (11.0-16.0); LYMPH # 1.5 K/uL (1.0-4.3); LYMPH % 23.4 % (20.0-40.0); MEAN CORPUSCULAR HEMOGLOBIN 22.9 pg (27.0-31.0); MEAN PLATELET VOLUME 8.9 fL (7.2-11.7); MONO # 0.4 K/uL (0.0-0.8); MONO % 6.3 % (0.0-10.0); NEUT % 60.7 % (50.0-75.0); RBC 6.76 Mil/uL (3.80-5.20); RED CELL DISTRIBUTION WIDTH 19.1 % (11.5-14.5); WHITE BLOOD COUNT 6.6 K/uL (4.8-10.8)
[2017-12-25 17:20] LABS: MEAN CELL VOLUME 71.4 fL (81.0-99.0)
[2017-12-25] MEDS ORDERED: MethylPREDNISolone 40 mg Vial IM STA (17:22)
[2017-12-25 17:23] LABS: ALT/SGPT 14 U/L (9-52); AST/SGOT 26 U/L (14-36); BLOOD UREA NITROGEN 10 mg/dL (7-17); GFR AFRICAN-AMERICAN > 60; GFR NON-AFRICAN AMERICAN > 60
--- NOTE | 2017-12-25 17:52 | RAD ---
HISTORY: SOB COMPARISON: Chest x-ray performed 08/29/17 TECHNIQUE: Chest, one view. FINDINGS: LUNGS: Chronic appearing interstitial markings. 11 mm nodular density at the right mid lung zone. Subtle more confluent patchy opacities at the right and left lung base may reflect infiltrate. Please note that chest x-ray has limited sensitivity for the detection of pulmonary masses. PLEURA: No significant pleural effusion identified. No definite pneumothorax . CARDIOVASCULAR: Mild cardiomegaly. OSSEOUS STRUCTURES: Degenerative changes of the spine. VISUALIZED UPPER ABDOMEN: Unremarkable. OTHER FINDINGS: None. IMPRESSION: Prominent interstitial markings may be chronic. 11 mm nodular density, right mid lung zone and subtle more confluent patchy opacities at the right and left lung base possibly infiltrate. If indicated, CT of the chest may be considered for further evaluation. Mild cardiomegaly.
--- NOTE | 2017-12-25 18:55 | CT ---
PROCEDURE: CT Chest without contrast HISTORY: lung nodule, ? infiltrate COMPARISON: None. TECHNIQUE: Contiguous axial images were obtained through the chest without intravenous contrast enhancement. Sagittal and coronal reconstructions were performed. Radiation dose (DLP): 141.21 mGy-cm. This CT exam was performed using one or more of the following dose reduction techniques: Automated exposure control, adjustment of the mA and/or kV according to patient size, and/or use of iterative reconstruction technique. FINDINGS: LUNGS: There are reticular and reticulonodular opacities at the bilateral upper lobes noted associated with mild bronchiectasis. Findings are nonspecific and may represent sequela of infectious or inflammatory process. Foci of ground-glass opacity are also noted in the upper lobes and right middle lobe. MEDIASTINUM: Unremarkable thoracic aorta. No aneurysm. The heart is mildly enlarged. The main pulmonary artery is mildly to moderately enlarged measures up to 3.7 centimeter. Mild mediastinal lymphadenopathy noted. PLEURA: No pleural fluid. No pneumothorax. BONES: No fracture. No destructive lesion. UPPER ABDOMEN: Grossly unremarkable. OTHER FINDINGS: None. IMPRESSION: Nonspecific reticular and reticulonodular opacities more prominent at the upper lobes. The differential consideration includes sequela of infection or inflammatory process. Patchy ground-glass opacities noted in the upper lobes and right middle lobe. Mild cardiomegaly. [id number] enlarged main pulmonary artery suggestive of pulmonary hypertension. Mild mediastinal lymphadenopathy.
[2017-12-25 20:11] LABS: BARBITURATES, UR NEGATIVE (NEGATIVE); PHENCYCLIDINE, UR NEGATIVE (NEGATIVE)
[2017-12-25 20:27] LABS: BENZODIAZEPINES, UR POSITIVE (NEGATIVE); OPIATES, UR POSITIVE (NEGATIVE)
[2017-12-25] MEDS ORDERED: Potassium Chloride 10 mEq ER Tab PO STA (22:58)
--- NOTE | 2017-12-25 22:58 | CP.PCM.HP ---
Past Patient History - Infectious Disease Hx of Infectious Diseases: None - Past Medical History & Family History Past Medical History?: Yes - Past Social History Smoking Status: Light Smoker < 10 Cigarettes Daily - CARDIAC Hx Cardiac Disorders: No Hx Hypertension: No - PULMONARY Hx Asthma: Yes - NEUROLOGICAL HX Cerebrovascular Accident: No Hx Seizures: No - HEENT Hx HEENT Problems: No - RENAL Hx Chronic Kidney Disease: No - ENDOCRINE/METABOLIC Hx Endocrine Disorders: No - HEMATOLOGICAL/ONCOLOGICAL Hx Cancer: No Hx Human Immunodeficiency Virus (HIV): No - INTEGUMENTARY Hx Dermatological Problems: No - MUSCULOSKELETAL/RHEUMATOLOGICAL Hx Musculoskeletal Disorders: No Hx Falls: No - GASTROINTESTINAL Hx Gastrointestinal Disorders: No - GENITOURINARY/GYNECOLOGICAL Hx Sexually Transmitted Disorders: No - PSYCHIATRIC Hx Anxiety: Yes Hx Substance Use: Yes (IV heroin, Methadone and Xanax) - SURGICAL HISTORY Hx Surgeries: Yes Hx Section: Yes (X2) - ANESTHESIA Hx Anesthesia: Yes Hx Anesthesia Reactions: No Hx Malignant Hyperthermia: No Meds Allergies/Adverse Reactions: Allergies Allergy/AdvReac Type Severity Reaction Status Date / Time buprenorphine [From Suboxone] Allergy Severe ANGIOEDEMA Verified 12/25/17 16:00 naloxone [From Suboxone] Allergy Severe ANGIOEDEMA Verified 12/25/17 16:00 shrimp Allergy Severe ITCHING Verified 12/25/17 16:00 Results - Vital Signs Recent Vital Signs: Last Vital Signs Temp 98.5 F 12/25/17 20:46 Pulse 91 H 12/25/17 20:46 Resp 18 12/25/17 20:46 BP 144/86 12/25/17 20:46 Pulse Ox 96 12/25/17 22:04 - Labs Result Diagrams: 12/25/17 17:07 12/25/17 17:07 Labs: Laboratory Results - last 24 hr 12/25/17 12/25/17 12/25/17 17:07 17:07 17:07 WBC 6.6 RBC 6.76 H Hgb 15.5 Hct 48.3 H MCV 71.4 L D MCH 22.9 L MCHC 32.0 L RDW 19.1 H Plt Count 245 MPV 8.9 Neut % (Auto) 60.7 Lymph % (Auto) 23.4 [place] % (Auto) 6.3 Eos % (Auto) 8.4 H Baso % (Auto) 1.2 Neut # (Auto) 4.0 Lymph # (Auto) 1.5 [place] # (Auto) 0.4 Eos # (Auto) 0.6 Baso # (Auto) 0.1 Sodium 139 Potassium 3.4 L Chloride 95 L Carbon Dioxide 33 H Anion Gap 15 BUN 10 Creatinine 0.6 L Est GFR ( Amer) > 60 Est GFR (Non-Af Amer) > 60 Random Glucose 108 H Calcium 9.0 Total Bilirubin 0.9 AST 26 ALT 14 Alkaline Phosphatase 107 Total Protein 8.1 Albumin 4.0 Globulin 4.1 H Albumin/Globulin Ratio 1.0 Urine HCG, Qual Negative Urine Opiates Screen Urine Methadone Screen Ur Barbiturates Screen Ur Phencyclidine Scrn Ur Amphetamines Screen U Benzodiazepines Scrn U Oth Cocaine Metabols U Cannabinoids Screen Alcohol, Quantitative 12/25/17 12/25/17 19:42 19:49 WBC RBC Hgb Hct MCV MCH MCHC RDW Plt Count MPV Neut % (Auto) Lymph % (Auto) [place] % (Auto) Eos % (Auto) Baso % (Auto) Neut # (Auto) Lymph # (Auto) [place] # (Auto) Eos # (Auto) Baso # (Auto) Sodium Potassium Chloride Carbon Dioxide Anion Gap BUN Creatinine Est GFR ( Amer) Est GFR (Non-Af Amer) Random Glucose Calcium Total Bilirubin AST ALT Alkaline Phosphatase Total Protein Albumin Globulin Albumin/Globulin Ratio Urine HCG, Qual Urine Opiates Screen Positive H Urine Methadone Screen Negative Ur Barbiturates Screen Negative Ur Phencyclidine Scrn Negative Ur Amphetamines Screen Negative U Benzodiazepines Scrn Positive U Oth Cocaine Metabols Negative U Cannabinoids Screen Negative Alcohol, Quantitative < 10
[2017-12-26] MEDS: Albuterol HFA 90 mcg/actuation (8 g) INH SCH ×2 (01:00→08:41)
--- NOTE | 2017-12-26 08:00 | PCM.BM ---
<Loren Gonsales - Last Filed: 12/26/17 07:59> Treatment Plan Problems - Problems identified on initial assessmt Potential for opiate withdrawals Date Initiated: 12/26/17 Assessment reference: NA Status: Active Treatment assets and liabiliti Patient Assests: cooperative, ADL independent, negotiates basic needs Patient Liabilities: substance abuse, medical problems - Milieu Protocol Maintain good personal hygiene: daily Encourage regular showers, daily Remind patient to perform daily oral care, daily Assist patient to perform ADL's Conduct patient checks and document Observation sheet: Q15 minutes Maintain personal safety: every shift Educate patient to report safety concerns to staff, every shift Monitor environment for contraband/sharps Medication safety: Monitor for expected outcome, potential side effects: every shift, Assess barriers to learning: every shift, Assess readiness for medication education: every shift <Twyla Graham - Last Filed: 12/26/17 11:31> Family Contact Family involvement: Patient does not wish Family/SO involvement Family contact: Patient declines to allow family contact at present <Holli Lord - Last Filed: 12/26/17 23:35> - Diagnosis (1) Opiate dependence, continuous Status: Acute Interventions: 12/26/17 23:35 * Assess 7x/week regarding severity of withdrawal * Educate regarding risks, benefits, side effects and alternatives of medications * Use Motivational Interviewing for abstinence * Use CBT for relapse prevention * Medication management for withdrawal symptoms * Encourage medication assisted treatment *
[2017-12-26] MEDS ORDERED: Albuterol HFA 90 mcg/actuation (8 g) INH PRN (08:46)
--- NOTE | 2017-12-26 08:47 | PCM.PSYCH ---
Initial Psychiatric Evaluation - Initial Psychiatric Evaluation Chief Complaint (in patient's own words): I want to be clean History of Present Illness and Precipitating Events: Patient is a 27 year old female with heroin dependence comes in for detox. She has been here several times throughout the past 2 years. She is currently homeless, slept in a friend's car last night, unemployed. She is a single mother of one child that resides with the father, she lost custody of him because of overdosing on heroine 2-3 years ago. She does have family, but they do want her to reside with them because of her active IV drug use. Patient was last seen 08/2017 for acute respiratory failure, she was intubated. She currently uses 2-3 bundles of IV heroine per day and takes 1mg of xanax daily. Denied any marijuana, cocaine, or alcohol use. Denied any visual, auditory or tactile hallucinations. Denied suicidal or homicidal ideation. Denies any depressive symptoms. Denies hearing voices or having racing thoughts. Past Medical History: Hypertension, Asthma Past Psych History: Depression, Anxiety Family Psych History: Denied Current Medications: Active Medications Generic Name Dose Route Start Last Admin Trade Name Freq PRN Reason Stop Dose Admin Albuterol 2 puff 12/26/17 08:46 Ventolin Hfa 90 Mcg/Actuation (8 G) INH RQ4 PRN Wheezing Clonidine HCl 0.1 mg 12/25/17 22:21 12/26/17 00:52 Catapres PO 0.1 mg Q8 PRN Administration COWS Score More or Equal to 5 Dicyclomine HCl 10 mg 12/25/17 22:25 Bentyl PO Q6H PRN spasm/ cramps Ibuprofen 600 mg 12/25/17 23:51 12/26/17 07:40 Motrin Tab PO 600 mg TID PRN Administration Pain, moderate (4-7) Loperamide HCl 2 mg 12/25/17 22:21 Imodium PO Q8 PRN Diarrhea Lorazepam 0.5 mg 12/26/17 08:23 Ativan PO Q6H PRN severe anxiety Ondansetron HCl 4 mg 12/25/17 22:21 Zofran Tab PO Q8 PRN Nausea/Vomiting Fluticasone/Salmeterol 2 puff 12/26/17 10:00 Advair Diskus 250/50 INH RQ12 [facility] Past Psychiatric History - Past Psychiatric History Pertinent Medical Hx (Current Medical&Sleep Prob, Allergies): Allergies Allergy/AdvReac Type Severity Reaction Status Date / Time buprenorphine [From Suboxone] Allergy Severe ANGIOEDEMA Verified 12/25/17 16:00 naloxone [From Suboxone] Allergy Severe ANGIOEDEMA Verified 12/25/17 16:00 shrimp Allergy Severe ITCHING Verified 12/25/17 16:00 Albuterol 0.083% [Albuterol 0.083% Inhal Jenny (2.5 mg/3 ml) UD] 2.5 mg INH RQ2 PRN #100 neb 03/07/17 Fluticasone/Salmeterol 250/50 [Advair Diskus 250/50] 2 puff INH QID #30 puff Review of Systems - Review of Systems All systems: reviewed and no additional remarkable complaints except - Psychiatric Psychiatric: Abnormal Sleep Pattern, Anxiety, Difficulty Concentrating. absent : Auditory Hallucinations, Hopelessness, Paranoia, Suicidal Ideation, Visual Hallucinations, Tactile Hallucinations Mental Status Examination - Personal Presentation Personal Presentation: Looks stated age - Affect Affect: Broad - Motor Activity Motor Activity: Calm - Reliability in Providing Information Reliability in Providing Information: Good - Speech Speech: Organized - Mood Mood: Depressed, Anxious - Formal Thought Process Formal Thought Process: No Impairment - Obsessions/Compulsions Obsessions: No Compulsions: No - Cognitive Functions Orientation: Person, Place, Situation, Time Judgement: Intact, as evidence by: Insight regarding need for hospitalization DSM 5 DX - DSM 5 DSM 5 Diagnosis: Opiate Use Disorder - severe Opioid withdrawal Benzo Use Disorder - moderate - Recommended/Plan of Treatment Treatment Recommendations and Plan of Treatment: Opiate Use Disorder - severe -CBT for relapse prevention -Psychoeducation -Supportive therapy, individual therapy -Use VT for abstinence Opioid withdrawal -Support and psychoeducation daily -Attend group activities daily -Methadone Taper Benzo Use Disorder - moderate --VT and CBT Asthma -Hx of intubation 08/2017 -Albuterol and Advair HTN -Medicine Consult- Dr. Arvizu - help appreciated -Clonidine Patch 0.2 patch -Hydralazine 25mg PO BID DW Dr. Lord, Angy Kasper DO, PGY-1
[2017-12-26] MEDS ORDERED: Fluticasone-Salmeterol 250-50mcg Diskus INH SCH ×2 (10:00)
--- NOTE | 2017-12-26 19:09 | CP.PCM.CON ---
History of Present Illness - History of Present Illness History of Present Illness: CC:called consult for asthma and htn 26 year old female with PMHx of asthma and heroin abuse presented to ED heroine abuse and treatment. Admits to using IV heroin use [6 to 8 bags/day] and the last time she used was the day before admission. She denied any other drug use and reported no longer smoking cigarettes. c/o abdominal pain, sweating medical consult called for coughing and HTN c/o increasing wheezing and cough and mucous production. chest tightness noted pt takes asthma nedications pt has h/o asthma from childhood and intubated in 02/2017 PMH: asthma medications ventolin and singulair allergy:shrimp surgery: csection she has h/o smoking o/e chest bilateral wheezing noted regular hs abd soft edema negative ao*3 cxr; hyperinflated lungs CT chest diffuse empysema retucular nodular changes noted likely asthma related. a/p: 27 female with asthma heroine abuse for detox now having withdrawel on methadone asthma exacerbation singular, prednisone, duoneb advair will f/u BP control Past Patient History - Infectious Disease Hx of Infectious Diseases: None - Past Medical History & Family History Past Medical History?: Yes - Past Social History Smoking Status: Light Smoker < 10 Cigarettes Daily - CARDIAC Hx Cardiac Disorders: No Hx Hypertension: No - PULMONARY Hx Asthma: Yes - NEUROLOGICAL HX Cerebrovascular Accident: No Hx Seizures: No - HEENT Hx HEENT Problems: No - RENAL Hx Chronic Kidney Disease: No - ENDOCRINE/METABOLIC Hx Endocrine Disorders: No - HEMATOLOGICAL/ONCOLOGICAL Hx Cancer: No Hx Human Immunodeficiency Virus (HIV): No - INTEGUMENTARY Hx Dermatological Problems: No - MUSCULOSKELETAL/RHEUMATOLOGICAL Hx Musculoskeletal Disorders: No Hx Falls: No - GASTROINTESTINAL Hx Gastrointestinal Disorders: No - GENITOURINARY/GYNECOLOGICAL Hx Sexually Transmitted Disorders: No - PSYCHIATRIC Hx Substance Use: Yes (opi,benzo) - SURGICAL HISTORY Hx Surgeries: Yes Hx Section: Yes (X2) - ANESTHESIA Hx Anesthesia: Yes Hx Anesthesia Reactions: No Hx Malignant Hyperthermia: No Meds Allergies/Adverse Reactions: Allergies Allergy/AdvReac Type Severity Reaction Status Date / Time buprenorphine [From Suboxone] Allergy Severe ANGIOEDEMA Verified 12/25/17 16:00 naloxone [From Suboxone] Allergy Severe ANGIOEDEMA Verified 12/25/17 16:00 shrimp Allergy Severe ITCHING Verified 12/25/17 16:00 - Medications Medications: Current Medications Albuterol (Ventolin Hfa 90 Mcg/Actuation (8 G)) 2 puff INH RQ4 PRN PRN Reason: Wheezing Clonidine HCl (Catapres) 0.1 mg PO Q8 PRN PRN Reason: COWS Score More or Equal to 5 Last Admin: 12/26/17 00:52 Dose: 0.1 mg Clonidine HCl (Catapres-Tts2 0.2 Mg/24 Hr) 1 patch TD Q7D@1000 [place] Last Admin: 12/26/17 09:57 Dose: 1 patch Dicyclomine HCl (Bentyl) 10 mg PO Q6H PRN PRN Reason: spasm/ cramps Hydralazine HCl (Apresoline) 25 mg PO BID [facility] Last Admin: 12/26/17 17:13 Dose: 25 mg Ibuprofen (Motrin Tab) 600 mg PO TID PRN PRN Reason: Pain, moderate (4-7) Last Admin: 12/26/17 07:40 Dose: 600 mg Loperamide HCl (Imodium) 2 mg PO Q8 PRN PRN Reason: Diarrhea Lorazepam (Ativan) 0.5 mg PO Q6H PRN PRN Reason: severe anxiety Last Admin: 12/26/17 15:50 Dose: 0.5 mg Mirtazapine (Remeron) 15 mg PO HS [facility] Ondansetron HCl (Zofran Tab) 4 mg PO Q8 PRN PRN Reason: Nausea/Vomiting Fluticasone/Salmeterol (Advair Diskus 500/50) 1 puff INH RQ12 [facility] Results - Vital Signs Recent Vital Signs: Last Vital Signs Temp 98.3 F 12/26/17 16:16 Pulse 97 H 12/26/17 16:16 Resp 20 12/26/17 16:16 BP 130/92 H 12/26/17 16:16 Pulse Ox 95 12/26/17 16:16 - Labs Result Diagrams: 12/25/17 17:07 12/25/17 17:07 Labs: Laboratory Results - last 24 hr 12/25/17 12/25/17 19:42 19:49 Urine Opiates Screen Positive H Urine Methadone Screen Negative Ur Barbiturates Screen Negative Ur Phencyclidine Scrn Negative Ur Amphetamines Screen Negative U Benzodiazepines Scrn Positive U Oth Cocaine Metabols Negative U Cannabinoids Screen Negative Alcohol, Quantitative < 10
[2017-12-26] MEDS: Albuterol-Ipratrop 3 mg / 0.5 (3 ml) UD INH SCH ×2 (21:11→23:42)
--- NOTE | 2017-12-27 08:53 | PCM.PYCHPN ---
Psychiatric Progress Note - Psychiatric Progress Note Patient Chief Complaint: I want to be clean Problems Identified/Issues Discussed: The pt is seen, chart reviewed, case discussed with staff. The pt is compliant with medications and reports no side-effects. Symptoms are improving but needs more time to stabilize. After care discussed, support and psychoeducation given. Patient reported she had a headache this morning. No difficulties breathing. Mental Status Examination - Cognitive Function Orientation: Person, Place, Situation, Time Memory: Intact Attention: WNL Concentration: WNL Association: WNL Fund of Knowledge: WNL - Mood Mood: Anxious - Affect Affect: Broad - Formal Thought Process Formal Thought Process: No Impairment - Suicidal Ideation Suicidal Ideation: No - Homicidal Ideation Homicidal Ideation: No Goal/Treatment Plan - Goal/Treatment Plan Progress Toward Problem(s) and Goals/Treatment Plan: Opioid Use Disorder - severe -CBT for relapse prevention -Psychoeducation -Supportive therapy, individual therapy -Use TN for abstinence Opioid withdrawal -Support and psychoeducation daily -Attend group activities daily -Methadone Taper Benzo Use Disorder - moderate -TN and CBT Asthma -Hx of intubation 02/2017, 08/2017 -Albuterol and Advair -Prednisone 20mg by mouth twice a day x 2 days HTN -Medicine Consult- Dr. Arvizu - help appreciated -Clonidine Patch 0.2 patch Q7D -Hydralazine 25mg PO BID DW Angy Law DO, PGY-1
[2017-12-27] MEDS: Fluticasone-Salmeterol 500-50mcg Diskus INH SCH ×2 (09:11→21:00)
[2017-12-27] MEDS: Albuterol-Ipratrop 3 mg / 0.5 (3 ml) UD INH SCH ×3 (09:12→23:28)
[2017-12-27] MEDS ORDERED: Tuberculin 5 Units/0.1 ml Inj ID ONE (14:00)
[2017-12-28] MEDS: Fluticasone-Salmeterol 500-50mcg Diskus INH SCH ×2 (09:11→20:12)
[2017-12-28] MEDS: Albuterol-Ipratrop 3 mg / 0.5 (3 ml) UD INH SCH ×3 (09:13→23:27)
--- NOTE | 2017-12-28 13:24 | PCM.PYCHPN ---
Psychiatric Progress Note - Psychiatric Progress Note Patient seen today, length of contact: 16 min Patient Chief Complaint: "I am much better" Problems Identified/Issues Discussed: The pt is seen, chart reviewed, case discussed with staff. Support given, CBT and TX used briefly No new symptoms reported, improving slowly and needs more time No SEs from medications, risks discussed. After care discussed - Will go to [place]. Wants to leave Saturday Medication Change: Yes (detox changes daily) Medical Record Reviewed: Yes Mental Status Examination - Cognitive Function Orientation: Person, Place, Situation, Time Memory: Intact Attention: WNL Concentration: WNL Association: WNL Fund of Knowledge: WNL - Mood Mood: Anxious - Affect Affect: Broad - Formal Thought Process Formal Thought Process: No Impairment - Suicidal Ideation Suicidal Ideation: No - Homicidal Ideation Homicidal Ideation: No Goal/Treatment Plan - Goal/Treatment Plan Need for Continued Stay: Discharge may exacerbated symptoms, Severe functional impairment Progress Toward Problem(s) and Goals/Treatment Plan: Continue medications Support and psychoeducation daily Attend groups and activities daily After care planning by NICHOLE
[2017-12-29] MEDS: Fluticasone-Salmeterol 500-50mcg Diskus INH SCH ×2 (08:08→20:29)
[2017-12-29] MEDS: Albuterol-Ipratrop 3 mg / 0.5 (3 ml) UD INH SCH ×3 (08:08→23:20)
[2017-12-29 10:47] VITALS: RESP 18
--- NOTE | 2017-12-29 13:32 | PCM.PYCHPN ---
Psychiatric Progress Note - Psychiatric Progress Note Patient seen today, length of contact: 16 min Patient Chief Complaint: "I am tired" Problems Identified/Issues Discussed: The pt is seen, chart reviewed, case discussed with staff. The pt is compliant with medications and reports no side-effects. Symptoms are improving but needs more time to stabilize. After care discussed, support and psychoeducation given. Another pt claimed she was abusing her methadone by cheeking but she denied it. Medication Change: Yes (detox changes daily) Medical Record Reviewed: Yes Mental Status Examination - Cognitive Function Orientation: Person, Place, Situation, Time Memory: Intact Attention: WNL Concentration: WNL Association: WNL Fund of Knowledge: WNL - Mood Mood: Anxious - Affect Affect: Broad - Formal Thought Process Formal Thought Process: No Impairment - Suicidal Ideation Suicidal Ideation: No - Homicidal Ideation Homicidal Ideation: No Goal/Treatment Plan - Goal/Treatment Plan Need for Continued Stay: Discharge may exacerbated symptoms, Severe functional impairment Progress Toward Problem(s) and Goals/Treatment Plan: Continue medications Support and psychoeducation daily Attend groups and activities daily After care planning by NICHOLE
[2017-12-30 08:38] VITALS: BP 140/97; PULSE 94; TEMP 98.2; O2SAT 95
--- NOTE | 2017-12-30 08:54 | PCM.PYCHDC ---
Mental Status Examination - Mental Status Examination Orientation: Person Discharge Summary - Discharge Note Consultations:: List each consultation separately and include: 1. Reason for request. 2. Findings. 3. Follow-up Summary of Hospital Course include:: 1. Description of specific treatment plan utilized for patients during their course of treatmen. 2. Summarize the time- course for resolution of acute symptoms and/or regressed behaviors. 3. Describe issues identified and worked on during hospitalization. 4. Describe medication utilized. 5. Describe medical problems identified and treated. 6. Reassessment of suicide risk Summary of Hospital Course: She was planning on going to [place] for a rehab and she has family there, but then decided to "wait at home" with her mother here until [facility] takes her bc her mo spoke wit them. - Diagnosis (1) Opiate dependence, continuous Current Visit: Yes Status: Acute - Final Diagnosis (DSM 5) Condition upon Discharge: STABLE Disposition: HOME/ ROUTINE Follow-up Treatment Plan: Continue medications Support and psychoeducation daily Attend groups and activities daily After care planning by NICHOLE Prescriptions/Medication Reconciliation: cloNIDine 0.2 mg/24 hr [catapres-TTS2 0.2 mg/24 hr] 1 patch TD Q7D@1000 #4 patch Fluticasone/Salmeterol 500/50 [Advair Diskus 500/50] 1 puff INH RQ12 #1 puff hydrALAZINE [Apresoline] 25 mg PO BID #60 tab Mirtazapine [Remeron] 15 mg PO HS #30 tab Montelukast [Singulair] 10 mg PO HS #30 tab
[2017-12-30] MEDS: Fluticasone-Salmeterol 500-50mcg Diskus INH SCH (09:01)
[2017-12-30] MEDS: Albuterol-Ipratrop 3 mg / 0.5 (3 ml) UD INH SCH (09:02)
== END 2017-12-30 10:50 | disposition home or self-care (01) | DRG 895 ==
LOC: C.ER 15:46 → C.7D 22:04
PROVIDERS: ADMIT Psychiatry & Neurology Psychiatry; ATTEND Psychiatry & Neurology Psychiatry
PROC: HZ52ZZZ Individual Psychotherapy for Substance Abuse Treatment, Cognitive-Behavioral (ICD-10-PCS; principal; 2017-12-25)
PROC: HZ59ZZZ Individual Psychotherapy for Substance Abuse Treatment, Supportive (ICD-10-PCS; 2017-12-25)
PROC: HZ56ZZZ Individual Psychotherapy for Substance Abuse Treatment, Psychoeducation (ICD-10-PCS; 2017-12-25)
PROC: HZ81ZZZ Medication Management for Substance Abuse Treatment, Methadone Maintenance (ICD-10-PCS; 2017-12-25)
DX: F11.23 Opioid dependence with withdrawal (principal); J45.901 Unspecified asthma with (acute) exacerbation; F17.210 Nicotine dependence, cigarettes, uncomplicated; F32.9 Major depressive disorder, single episode, unspecified; F41.9 Anxiety disorder, unspecified; F13.10 Sedative, hypnotic or anxiolytic abuse, uncomplicated; I10 Essential (primary) hypertension; Z59.0 Homelessness

== ENCOUNTER 2018-02-06 16:11 | Inpatient (IN) | payer MEDICARE, OTHER ==
[2018-02-06 16:12] VITALS: BMI 17.9
[2018-02-06] MEDS ORDERED: Albuterol-Ipratrop 3 mg / 0.5 (3 ml) UD INH STA ×2 (16:27)
--- NOTE | 2018-02-06 16:37 | C.PDOC ---
History Of Present Illness 27 y/o female with history of Asthma and HTN brought to ED by EMS with complaints of sob and wheezing developed prior to arrival. As per EMS patient was given Solumedrol and Neb treatment. Patient is a heroin user and admits last heroin use was 10am this morning. Patient denies fever, chills, nausea, vomiting or any other complaints at this time. Time Seen by Provider: 02/06/18 16:15 Chief Complaint (Nursing): Shortness Of Breath History Per: Patient History/Exam Limitations: no limitations Onset/Duration Of Symptoms: Hrs Current Symptoms Are (Timing): Still Present Initiating Event: Upper Respiratory Illness Past Medical History Reviewed: Historical Data, Nursing Documentation, Vital Signs Vital Signs: Last Vital Signs Temp 98.2 F 02/06/18 16:35 Pulse 109 H 02/06/18 16:46 Resp 24 02/06/18 16:46 BP 144/95 H 02/06/18 16:16 Pulse Ox 100 02/06/18 17:38 - Medical History PMH: Anxiety, Asthma Surgical History: No Surg Hx - [facility] Procedures CONTINUOUS INVASIVE MECHANICAL VENTILATION <96 CONSEC HRS (12/16/13) DETOXIFICATION SERVICES FOR SUBSTANCE ABUSE TREATMENT (04/14/17) INDIV PSYCHOTHERAPY FOR SUBSTANCE ABUSE TREATMENT, SUPPORT (12/25/17) INDIV PSYCHOTHERAPY FOR SUBSTANCE ABUSE, COGNITIV BEHAVIORAL (12/25/17) INDIV PSYCHOTHERAPY FOR SUBSTANCE ABUSE, PSYCHOEDUCATION (12/25/17) INSERT ENDOTRACHEAL TUBE (12/16/13) INSERTION OF ENDOTRACHEAL AIRWAY INTO TRACHEA, VIA OPENING (08/29/17) MEDS MGMT FOR SUBSTANCE ABUSE TREATMENT, METHADONE MAINT (12/25/17) OTHER SKIN & SUBQ I D (06/14/13) RESPIRATORY VENTILATION, LESS THAN 24 CONSECUTIVE HOURS (08/29/17) TETANUS TOXOID ADMINIST (06/14/13) Family History: States: No Known Family Hx - Social History Hx Tobacco Use: (UNKNOWN) Hx Alcohol Use: No Hx Substance Use: Yes - Immunization History Hx Tetanus Toxoid Vaccination: No Hx Influenza Vaccination: Yes Hx Pneumococcal Vaccination: No Review Of Systems Constitutional: Negative for: Fever, Chills Cardiovascular: Negative for: Chest Pain Respiratory: Positive for: Shortness of Breath, Wheezing. Negative for: Cough Gastrointestinal: Negative for: Nausea, Vomiting Skin: Negative for: Rash Physical Exam - Physical Exam Appears: Non-toxic, No Acute Distress Skin: Warm, Dry, No Rash Head: Atraumatic, Normacephalic Eye(s): bilateral: PERRL, EOMI Oral Mucosa: Moist Neck: Normal ROM, Supple Chest: Symmetrical Cardiovascular: Rhythm Regular Respiratory: No Rales, No Rhonchi, Wheezing (diffuse) Gastrointestinal/Abdominal: Soft, No Tenderness, No Guarding, No Rebound Extremity: Normal ROM, No Pedal Edema, Capillary Refill (<2 seconds) Neurological/Psych: Oriented x3, Normal Speech ED Course And Treatment - Laboratory Results Result Diagrams: 02/06/18 16:35 02/06/18 16:35 O2 Sat by Pulse Oximetry: 100 (RA) Pulse Ox Interpretation: Normal Medical Decision Making Medical Decision Making: astham h/o o f intubaiton nebs steriods (pt got solumdrol user acceptance tester). imaging 600 perisistent wheezing, h/o of intubation needs admission. Disposition - Disposition Disposition: HOSPITALIZED Disposition Time: 17:37 Condition: FAIR - Clinical Impression Clinical Impression: Asthma - Scribe Statement The provider has reviewed the documentation as recorded by the Scribe Ryland Pleitez All medical record entries made by the Scribe were at my direction and personally dictated by me. I have reviewed the chart and agree that the record accurately reflects my personal performance of the history, physical exam, medical decision making, and the department course for this patient. I have also personally directed, reviewed, and agree with the discharge instructions and disposition. Decision To Admit - Pt Status Changed To: Hospital Disposition Of: Inpatient - Admit Certification Admit to Inpatient:: After my assessment, the patient will require hospitalization for at least two midnights. This is because of the severity of symptoms shown, intensity of services needed, and/or the medical risk in this patient being treated as an outpatient. - InPatient: Physician Admission Certification: I certify that this patient requires 2 or more midnights of care for the following reason:: sp asthma needs nebs steriods h/o of intubation - . Bed Request Type: Telemetry Admitting Physician: Anders Perez Patient Diagnosis: Asthma
[2018-02-06 16:38] LABS: BASO % 0.5 % (0.0-2.0); EOS # 0.5 K/uL (0.0-0.7); EOS % 7.6 % (0.0-4.0); HEMOGLOBIN 13.6 g/dL (11.0-16.0); LYMPH # 1.9 K/uL (1.0-4.3); LYMPH % 27.6 % (20.0-40.0); MEAN CELL VOLUME 73.1 fL (81.0-99.0); MEAN CORPUSCULAR HEMOGLOBIN 24.2 pg (27.0-31.0); MEAN CORPUSCULAR HGB CONC 33.1 g/dL (33.0-37.0); MEAN PLATELET VOLUME 8.7 fL (7.2-11.7); MONO # 0.7 K/uL (0.0-0.8); MONO % 10.3 % (0.0-10.0); NEUT # 3.7 K/uL (1.8-7.0); NRBC % 0.1 % (0.0-2.0); RBC 5.62 Mil/uL (3.80-5.20); RED CELL DISTRIBUTION WIDTH 22.4 % (11.5-14.5); WHITE BLOOD COUNT 6.9 K/uL (4.8-10.8)
[2018-02-06 16:46] LABS: INR 1.1; PROTHROMBIN TIME 12.3 SECONDS (9.7-12.2)
[2018-02-06 16:53] LABS: SQUAMOUS EPITHIAL 5 /hpf (0-5); URINE BILIRUBIN NEGATIVE (NEGATIVE); URINE BLOOD 3+ (NEGATIVE); URINE CLARITY Hazy (Clear); URINE COLOR Yellow (YELLOW); URINE GLUCOSE (UA) NORMAL (Normal); URINE LEUKOCYTE ESTERASE NEG Leu/uL (Negative); URINE PROTEIN 2+ mg/dL (NEGATIVE); URINE UROBILINOGEN NORMAL mg/dL (0.2-1.0)
[2018-02-06 16:54] LABS: HCG,QUALITATIVE URINE NEGATIVE (NEGATIVE)
[2018-02-06 16:55] LABS: ALB/GLOB RATIO 1.2 (1.0-2.1); ALBUMIN 3.9 g/dL (3.5-5.0); ALT/SGPT 28 U/L (9-52); AST/SGOT 25 U/L (14-36); BLOOD UREA NITROGEN 6 mg/dL (7-17); CALCIUM 8.6 mg/dl (8.6-10.4); GFR AFRICAN-AMERICAN > 60; GFR NON-AFRICAN AMERICAN > 60
[2018-02-06] MEDS ORDERED: Albuterol-Ipratrop 3 mg / 0.5 (3 ml) UD ONE (17:25)
[2018-02-06 19:45] VITALS: RESP 20
[2018-02-06] MEDS ORDERED: Albuterol 0.042% Inhal Sol (1.25 mg/3 mL) UD INH PRN (21:52)
--- NOTE | 2018-02-06 22:14 | CP.PCM.HP ---
<RacielRatna Syeda - Last Filed: 02/06/18 21:56> History of Present Illness - History of Present Illness History of Present Illness: CC: Shortness of breath HPI: Patient is a 27 y/o F with PMHx of asthma, HTN, and heroin abuse presents today for asthma exacerbation. Patient has been using her Ventolin inhaler multiple times per day (8 times yesterday). Patient has not been taking her Advair because she has been staying at her boyfriend's house and her medication is at home. Patient also has not used her Clonidine patch in 5 days. 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 Today she also had a lot of shortness of breath and coughing, but ran out of her Ventolin so she came to the ED. Patient also injects Heroin. Patient used 1/2 a bag of heroin at 10am. Currently patient is no longer feeling short of breath. Patient also admits to about 30lbs of weight loss in the past month. She is feeling anxious, jittery and sweaty. Patient also admits to some nausea, but no vomiting. Patient denies any chest pain, sore throat, phlegm, abdominal pain, vomiting, diarrhea, or constipation. PMD: Dr. Arceo Allergies: shrimp- anaphylaxis PMHx: HTN, asthma Psurg: x 2 - 2006, 2011 Soc: 2 cig/day since 12, no alcohol, uses heroin for past 7 years, used to use 2 -3 bundles per day decreased to 3-4 bags 1 month ago after detox. longest period of sobriety 45 days 3 years ago. was on methadone for one year but was using Famhx: denies Home meds: discharged after last hospital admission with: Advair, Clonidine . 2mg path, Apresoline, Remeron, Ventolin, Singulair- only uses Ventolin and Clonidine Present on Admission - Present on Admission Any Indicators Present on Admission: No History of DVT/PE: No History of Uncontrolled Diabetes: No Urinary Catheter: No Decubitus Ulcer Present: No Review of Systems - Constitutional Constitutional: Weight Loss. absent: Fatigue, Fever - EENT Eyes: absent: Change in Vision - Cardiovascular Cardiovascular: Dyspnea, Dyspnea on Exertion. absent: Chest Pain, Chest Pain at Rest, Edema, Palpitations, Pedal Edema - Respiratory Respiratory: Cough, Dyspnea, Wheezing - Gastrointestinal Gastrointestinal: Nausea. absent: Abdominal Pain, Constipation, Diarrhea, Vomiting - Genitourinary Genitourinary: absent: Difficulty Urinating - Integumentary Additional comments: track wright on arms and neck - Psychiatric Psychiatric: Anxiety Additional comments: tremor - Hematologic/Lymphatic Hematologic: absent: Easy Bleeding, Easy Bruising Past Patient History - Infectious Disease Hx of Infectious Diseases: None - Past Medical History & Family History Past Medical History?: Yes - Past Social History Smoking Status: Light Smoker < 10 Cigarettes Daily - CARDIAC Hx Cardiac Disorders: Yes Hx Hypertension: Yes - PULMONARY Hx Respiratory Disorders: Yes Hx Asthma: Yes - NEUROLOGICAL Hx Neurological Disorder: No Hx Seizures: No - HEENT Hx HEENT Problems: No - RENAL Hx Chronic Kidney Disease: No - ENDOCRINE/METABOLIC Hx Endocrine Disorders: No - HEMATOLOGICAL/ONCOLOGICAL Hx Blood Disorders: No Hx Human Immunodeficiency Virus (HIV): No - INTEGUMENTARY Hx Dermatological Problems: No - MUSCULOSKELETAL/RHEUMATOLOGICAL Hx Musculoskeletal Disorders: No Hx Falls: No - GASTROINTESTINAL Hx Gastrointestinal Disorders: No - GENITOURINARY/GYNECOLOGICAL Hx Genitourinary Disorders: No - PSYCHIATRIC Hx Psychophysiologic Disorder: Yes Hx Anxiety: Yes Hx Substance Use: Yes (heroin 3x/day,last use today at 10am) - SURGICAL HISTORY Hx Surgeries: Yes Hx Section: Yes (X2) - ANESTHESIA Hx Anesthesia: Yes Hx Anesthesia Reactions: No Hx Malignant Hyperthermia: No Meds Allergies/Adverse Reactions: Allergies Allergy/AdvReac Type Severity Reaction Status Date / Time buprenorphine [From Suboxone] Allergy Severe ANGIOEDEMA Verified 02/06/18 16:22 naloxone [From Suboxone] Allergy Severe ANGIOEDEMA Verified 02/06/18 16:22 shrimp Allergy Severe ITCHING Verified 02/06/18 16:22 Physical Exam - Constitutional Appears: Non-toxic, No Acute Distress - Head Exam Head Exam: ATRAUMATIC, NORMAL INSPECTION, NORMOCEPHALIC - Eye Exam Eye Exam: EOMI, Normal appearance - ENT Exam ENT Exam: Mucous Membranes Moist, Normal Exam - Respiratory Exam Respiratory Exam: Wheezes Additional comments: b/l wheezing - Cardiovascular Exam Cardiovascular Exam: REGULAR RHYTHM, RRR, +S1, +S2 - GI/Abdominal Exam GI & Abdominal Exam: Normal Bowel Sounds, Soft. absent: Distended - Extremities Exam Extremities exam: Positive for: normal inspection. Negative for: pedal edema, tenderness - Back Exam Back exam: NORMAL INSPECTION - Neurological Exam Neurological exam: Alert, Oriented x3 - Psychiatric Exam Psychiatric exam: Agitated, Anxious - Skin Skin Exam: Intact, Normal Color, Warm Results - Vital Signs Recent Vital Signs: Last Vital Signs Temp 98.5 F 02/06/18 20:39 Pulse 86 02/06/18 20:40 Resp 20 02/06/18 20:39 BP 147/85 02/06/18 20:39 Pulse Ox 92 L 02/06/18 20:39 - Labs Result Diagrams: 02/06/18 16:35 02/06/18 16:35 Labs: Laboratory Results - last 24 hr 02/06/18 02/06/18 02/06/18 16:35 16:35 16:35 WBC 6.9 RBC 5.62 H Hgb 13.6 Hct 41.1 MCV 73.1 L MCH 24.2 L MCHC 33.1 RDW 22.4 H Plt Count 207 MPV 8.7 Neut % (Auto) 54.0 Lymph % (Auto) 27.6 Lares % (Auto) 10.3 H Eos % (Auto) 7.6 H Baso % (Auto) 0.5 Neut # (Auto) 3.7 Lymph # (Auto) 1.9 Lares # (Auto) 0.7 Eos # (Auto) 0.5 Baso # (Auto) 0.0 PT 12.3 H INR 1.1 APTT 38 H Sodium 141 Potassium 4.1 Chloride 99 Carbon Dioxide 30 Anion Gap 16 BUN 6 L Creatinine 0.5 L Est GFR ( Amer) > 60 Est GFR (Non-Af Amer) > 60 Random Glucose 105 Calcium 8.6 Total Bilirubin 0.5 AST 25 ALT 28 Alkaline Phosphatase 105 Total Protein 7.2 Albumin 3.9 Globulin 3.3 Albumin/Globulin Ratio 1.2 Urine Color Urine Clarity Urine pH Ur Specific [place] Urine Protein Urine Glucose (UA) Urine Ketones Urine Blood Urine Nitrate Urine Bilirubin Urine Urobilinogen Ur Leukocyte Esterase Urine WBC (Auto) Urine RBC (Auto) Ur Squamous Epith Cells Hyaline Casts Urine HCG, Qual 02/06/18 16:44 WBC RBC Hgb Hct MCV MCH MCHC RDW Plt Count MPV Neut % (Auto) Lymph % (Auto) Lares % (Auto) Eos % (Auto) Baso % (Auto) Neut # (Auto) Lymph # (Auto) Lares # (Auto) Eos # (Auto) Baso # (Auto) PT INR APTT Sodium Potassium Chloride Carbon Dioxide Anion Gap BUN Creatinine Est GFR ( Amer) Est GFR (Non-Af Amer) Random Glucose Calcium Total Bilirubin AST ALT Alkaline Phosphatase Total Protein Albumin Globulin Albumin/Globulin Ratio Urine Color Yellow Urine Clarity Hazy Urine pH 5.0 Ur Specific [place] 1.018 Urine Protein 2+ H Urine Glucose (UA) Normal Urine Ketones Negative Urine Blood 3+ H Urine Nitrate Negative Urine Bilirubin Negative Urine Urobilinogen Normal Ur Leukocyte Esterase Neg Urine WBC (Auto) 8 H Urine RBC (Auto) 89 H Ur Squamous Epith Cells 5 Hyaline Casts 3-5 H Urine HCG, Qual Negative Assessment & Plan - Assessment and Plan (Free Text) Assessment: Asthma exacerbation f/u cxray Albuterol 1.25mg/3ml q3h prn Duonebs q6h eduardo Budesonide .5mg q12h Doxycycline 100mg po 12h Heroin Abuse Ativan 1 mg ivp q4h Oxycodone ER 10mg one time dose Clonidine .1mg po tid prn Nutritional deficits Folic Acid 1mg po daily Thiamine 100mg po daily Multivitamins 1 tab po daily Prophylaxis Pepcid 20mg po daily SCDs <Anders Perez P - Last Filed: 02/06/18 23:38> Results - Vital Signs Recent Vital Signs: Last Vital Signs Temp 98.5 F 02/06/18 20:39 Pulse 86 02/06/18 20:40 Resp 20 02/06/18 20:39 BP 147/85 02/06/18 20:39 Pulse Ox 92 L 02/06/18 20:39 - Labs Result Diagrams: 02/06/18 16:35 02/06/18 16:35 Labs: Laboratory Results - last 24 hr 02/06/18 02/06/18 02/06/18 16:35 16:35 16:35 WBC 6.9 RBC 5.62 H Hgb 13.6 Hct 41.1 MCV 73.1 L MCH 24.2 L MCHC 33.1 RDW 22.4 H Plt Count 207 MPV 8.7 Neut % (Auto) 54.0 Lymph % (Auto) 27.6 Lares % (Auto) 10.3 H Eos % (Auto) 7.6 H Baso % (Auto) 0.5 Neut # (Auto) 3.7 Lymph # (Auto) 1.9 Lares # (Auto) 0.7 Eos # (Auto) 0.5 Baso # (Auto) 0.0 PT 12.3 H INR 1.1 APTT 38 H Sodium 141 Potassium 4.1 Chloride 99 Carbon Dioxide 30 Anion Gap 16 BUN 6 L Creatinine 0.5 L Est GFR ( Amer) > 60 Est GFR (Non-Af Amer) > 60 Random Glucose 105 Calcium 8.6 Total Bilirubin 0.5 AST 25 ALT 28 Alkaline Phosphatase 105 Total Protein 7.2 Albumin 3.9 Globulin 3.3 Albumin/Globulin Ratio 1.2 Urine Color Urine Clarity Urine pH Ur Specific [place] Urine Protein Urine Glucose (UA) Urine Ketones Urine Blood Urine Nitrate Urine Bilirubin Urine Urobilinogen Ur Leukocyte Esterase Urine WBC (Auto) Urine RBC (Auto) Ur Squamous Epith Cells Hyaline Casts Urine HCG, Qual 02/06/18 16:44 WBC RBC Hgb Hct MCV MCH MCHC RDW Plt Count MPV Neut % (Auto) Lymph % (Auto) Lares % (Auto) Eos % (Auto) Baso % (Auto) Neut # (Auto) Lymph # (Auto) Lares # (Auto) Eos # (Auto) Baso # (Auto) PT INR APTT Sodium Potassium Chloride Carbon Dioxide Anion Gap BUN Creatinine Est GFR ( Amer) Est GFR (Non-Af Amer) Random Glucose Calcium Total Bilirubin AST ALT Alkaline Phosphatase Total Protein Albumin Globulin Albumin/Globulin Ratio Urine Color Yellow Urine Clarity Hazy Urine pH 5.0 Ur Specific [place] 1.018 Urine Protein 2+ H Urine Glucose (UA) Normal Urine Ketones Negative Urine Blood 3+ H Urine Nitrate Negative Urine Bilirubin Negative Urine Urobilinogen Normal Ur Leukocyte Esterase Neg Urine WBC (Auto) 8 H Urine RBC (Auto) 89 H Ur Squamous Epith Cells 5 Hyaline Casts 3-5 H Urine HCG, Qual Negative Attending/Attestation - Attestation I have personally seen and examined this patient.: Yes I have fully participated in the care of the patient.: Yes I have reviewed all pertinent clinical information: Yes Notes (Text): Assessment * Asthma exacerbation due to non compliance of use of inhaled steroid, continued heroin use, smoking, 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 * H/o prior lung infections and sequel changes on prior ct Plan * Counselled about compliance with meds specifically inhaled steroid * Counselled about substance abuse * Nutrition * Gi DVt prophylaxis * Inhaled, iv steroid, po doxycycline, nebs * prn clonidine, ativan * Prn intermediate release oxycodone, patient in past had prolonged qt hence avoid methadone. * See orders for detail.
[2018-02-06] MEDS ORDERED: oxyCODONE 10 mg ER Tab (oxyCONTIN) PO STA (22:24)
[2018-02-07] MEDS: Albuterol-Ipratrop 3 mg / 0.5 (3 ml) UD INH SCH ×2 (01:14→07:41)
[2018-02-07 08:00] VITALS: BP 139/98; TEMP 98.2; O2SAT 97
[2018-02-07] MEDS ORDERED: Budesonide 0.5 mg/2 ml Inhal Susp UD INH SCH (08:00)
--- NOTE | 2018-02-07 08:19 | RAD ---
HISTORY: asthma/cough COMPARISON: 12/25/2017. FINDINGS: LUNGS: The lungs are hyperinflated and there is peribronchial thickening with chronic changes in both lungs. No focal consolidation. PLEURA: No significant pleural effusion identified, no pneumothorax apparent. CARDIOVASCULAR: Normal. OSSEOUS STRUCTURES: No significant abnormalities. VISUALIZED UPPER ABDOMEN: Normal. OTHER FINDINGS: None. IMPRESSION: No active pulmonary disease. COPD.
[2018-02-07 08:38] LABS: BASO % 0.1 % (0.0-2.0); HEMOGLOBIN 14.1 g/dL (11.0-16.0); LYMPH # 0.7 K/uL (1.0-4.3); LYMPH % 9.1 % (20.0-40.0); MEAN CELL VOLUME 72.7 fL (81.0-99.0); MEAN CORPUSCULAR HEMOGLOBIN 24.5 pg (27.0-31.0); MEAN CORPUSCULAR HGB CONC 33.7 g/dL (33.0-37.0); MEAN PLATELET VOLUME 9.1 fL (7.2-11.7); MONO # 0.3 K/uL (0.0-0.8); MONO % 4.3 % (0.0-10.0); NEUT # 6.8 K/uL (1.8-7.0); NEUT % 86.5 % (50.0-75.0); NRBC % 0.2 % (0.0-2.0); PLATELET COUNT 239 K/uL (130-400); RBC 5.75 Mil/uL (3.80-5.20); RED CELL DISTRIBUTION WIDTH 22.9 % (11.5-14.5); WHITE BLOOD COUNT 7.8 K/uL (4.8-10.8)
[2018-02-07 08:49] LABS: ALB/GLOB RATIO 1.2 (1.0-2.1); ALBUMIN 4.1 g/dL (3.5-5.0); ALT/SGPT 17 U/L (9-52); AST/SGOT 21 U/L (14-36); BLOOD UREA NITROGEN 10 mg/dL (7-17); CALCIUM 9.6 mg/dl (8.6-10.4); GFR AFRICAN-AMERICAN > 60; GFR NON-AFRICAN AMERICAN > 60
[2018-02-07 09:22] LABS: ANISOCYTOSIS SLIGHT; BANDS 1 % (0-2); LYMPHOCYTE 9 % (20-40); MONOCYTE 4 % (0-10); NEUTROPHIL 86 % (50-75); PLATELET ESTIMATE NORMAL (NORMAL); POIKILOCYTOSIS SLIGHT; TOTAL CELLS COUNTED 100
[2018-02-07 09:23] LABS: MICROCYTOSIS SLIGHT; OVALOCYTES SLIGHT; TARGET CELLS SLIGHT; TEARDROP CELLS SLIGHT
[2018-02-07] MEDS ORDERED: Multiple Vitamins Tab PO SCH (10:00)
--- NOTE | 2018-02-07 11:28 | CP.PCM.DIS ---
<Sachin White - Last Filed: 02/07/18 11:22> Provider - Provider Date of Admission: 02/06/18 17:23 Attending physician: Anders Perez MD Primary care physician: PMD: Dr Arceo Time Spent in preparation of Discharge (in minutes): 33 Hospital Course - Lab Results Lab Results: Most Recent Lab Values WBC 7.8 K/uL (4.8-10.8) 02/07/18 08:22 RBC 5.75 Mil/uL (3.80-5.20) H 02/07/18 08:22 Hgb 14.1 g/dL (11.0-16.0) 02/07/18 08:22 Hct 41.8 % (34.0-47.0) 02/07/18 08:22 MCV 72.7 fL (81.0-99.0) L 02/07/18 08:22 MCH 24.5 pg (27.0-31.0) L 02/07/18 08:22 MCHC 33.7 g/dL (33.0-37.0) 02/07/18 08:22 RDW 22.9 % (11.5-14.5) H 02/07/18 08:22 Plt Count 239 K/uL (130-400) 02/07/18 08:22 MPV 9.1 fL (7.2-11.7) 02/07/18 08:22 Neut % (Auto) 86.5 % (50.0-75.0) H 02/07/18 08:22 Lymph % (Auto) 9.1 % (20.0-40.0) L 02/07/18 08:22 [place] % (Auto) 4.3 % (0.0-10.0) 02/07/18 08:22 Eos % (Auto) 0.0 % (0.0-4.0) 02/07/18 08:22 Baso % (Auto) 0.1 % (0.0-2.0) 02/07/18 08:22 Neut # (Auto) 6.8 K/uL (1.8-7.0) 02/07/18 08:22 Lymph # (Auto) 0.7 K/uL (1.0-4.3) L 02/07/18 08:22 [place] # (Auto) 0.3 K/uL (0.0-0.8) 02/07/18 08:22 Eos # (Auto) 0.0 K/uL (0.0-0.7) 02/07/18 08:22 Baso # (Auto) 0.0 K/uL (0.0-0.2) 02/07/18 08:22 Neutrophils % (Manual) 86 % (50-75) H 02/07/18 08:22 Band Neutrophils % 1 % (0-2) 02/07/18 08:22 Lymphocytes % (Manual) 9 % (20-40) L 02/07/18 08:22 Monocytes % (Manual) 4 % (0-10) 02/07/18 08:22 Platelet Estimate Normal (NORMAL) 02/07/18 08:22 Poikilocytosis (manual Slight 02/07/18 08:22 Anisocytosis (manual) Slight 02/07/18 08:22 Microcytosis (manual) Slight 02/07/18 08:22 Target Cells Slight 02/07/18 08:22 Tear Drop Cells Slight 02/07/18 08:22 Ovalocytes Slight 02/07/18 08:22 PT 12.3 SECONDS (9.7-12.2) H 02/06/18 16:35 INR 1.1 02/06/18 16:35 APTT 38 SECONDS (21-34) H 02/06/18 16:35 Sodium 142 mmol/L (132-148) 02/07/18 08:22 Potassium 4.2 mmol/L (3.6-5.2) 02/07/18 08:22 Chloride 101 mmol/L (98-107) 02/07/18 08:22 Carbon Dioxide 29 mmol/L (22-30) 02/07/18 08:22 Anion Gap 17 (10-20) 02/07/18 08:22 BUN 10 mg/dL (7-17) 02/07/18 08:22 Creatinine 0.5 mg/dL (0.7-1.2) L 02/07/18 08:22 Est GFR ( Amer) > 60 02/07/18 08:22 Est GFR (Non-Af Amer) > 60 02/07/18 08:22 Random Glucose 105 mg/dL (65-105) 02/07/18 08:22 Calcium 9.6 mg/dl (8.6-10.4) 02/07/18 08:22 Phosphorus 3.5 mg/dL (2.5-4.5) 02/07/18 08:22 Magnesium 1.8 mg/dL (1.6-2.3) 02/07/18 08:22 Total Bilirubin 0.5 mg/dL (0.2-1.3) 02/07/18 08:22 AST 21 U/L (14-36) 02/07/18 08:22 ALT 17 U/L (9-52) 02/07/18 08:22 Alkaline Phosphatase 108 U/L (38-126) 02/07/18 08:22 Total Protein 7.6 g/dL (6.3-8.3) 02/07/18 08:22 Albumin 4.1 g/dL (3.5-5.0) 02/07/18 08:22 Globulin 3.5 gm/dL (2.2-3.9) 02/07/18 08:22 Albumin/Globulin Ratio 1.2 (1.0-2.1) 02/07/18 08:22 Urine Color Yellow (YELLOW) 02/06/18 16:44 Urine Clarity Hazy (Clear) 02/06/18 16:44 Urine pH 5.0 (5.0-8.0) 02/06/18 16:44 Ur Specific [place] 1.018 (1.003-1.030) 02/06/18 16:44 Urine Protein 2+ mg/dL (NEGATIVE) H 02/06/18 16:44 Urine Glucose (UA) Normal mg/dL (Normal) 02/06/18 16:44 Urine Ketones Negative mg/dL (NEGATIVE) 02/06/18 16:44 Urine Blood 3+ (NEGATIVE) H 02/06/18 16:44 Urine Nitrate Negative (NEGATIVE) 02/06/18 16:44 Urine Bilirubin Negative (NEGATIVE) 02/06/18 16:44 Urine Urobilinogen Normal mg/dL (0.2-1.0) 02/06/18 16:44 Ur Leukocyte Esterase Neg [place]/uL (Negative) 02/06/18 16:44 Urine WBC (Auto) 8 /hpf (0-5) H 02/06/18 16:44 Urine RBC (Auto) 89 /hpf (0-3) H 02/06/18 16:44 Ur Squamous Epith Cells 5 /hpf (0-5) 02/06/18 16:44 Hyaline Casts 3-5 /lpf (0-2) H 02/06/18 16:44 Urine HCG, Qual Negative (NEGATIVE) 02/06/18 16:44 - Hospital Course Hospital Course: CC: Shortness of breath HPI: Patient is a 27 y/o F with PMHx of asthma, HTN, and heroin abuse presents today for asthma exacerbation. Patient has been using her Ventolin inhaler multiple times per day (8 times yesterday). Patient has not been taking her Advair because she has been staying at her boyfriend's house and her medication is at home. Patient also has not used her Clonidine patch in 5 days. 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 Today she also had a lot of shortness of breath and coughing, but ran out of her Ventolin so she came to the ED. Patient also injects Heroin. Patient used 1/2 a bag of heroin at 10am. Currently patient is no longer feeling short of breath. Patient also admits to about 30lbs of weight loss in the past month. She is feeling anxious, jittery and sweaty. Patient also admits to some nausea, but no vomiting. Patient denies any chest pain, sore throat, phlegm, abdominal pain, vomiting, diarrhea, or constipation. PMD: Dr. Arceo Allergies: shrimp- anaphylaxis PMHx: HTN, asthma Psurg: x 2 - 2006, 2011 Soc: 2 cig/day since 12, no alcohol, uses heroin for past 7 years, used to use 2 -3 bundles per day decreased to 3-4 bags 1 month ago after detox. longest period of sobriety 45 days 3 years ago. was on methadone for one year but was using Famhx: denies Home meds: discharged after last hospital admission with: Advair, Clonidine . 2mg path, Apresoline, Remeron, Ventolin, Singulair- only uses Ventolin and Clonidine HOSPITAL COURSE: Patient was admitted due to asthma exacerbation secondary to medication non- compliance and respiratory depression 2/2 to heroin use (as well as exposure to construction site and smoking history). Patient was given albuterol, duonebs, budesonide and empiric doxycycline. She has a strong dependence to heroin. We advised her to seek detox at this time however she refused. She was in detox last month - she stated she tried to contact [facility] (inpatient program) but stated that "they never called me back". She was explained the reasons she had the asthma exacerbation and how to avoid an exacerbation in the future. Patient stated she was having withdrawal symptoms. We checked her Qtc which was 490 which is elevated however we still decided to give her a small dose of methadone 10mg (she stated she has received it in the past without issues). Upon final exacerbation her wheezing had improved significantly and she was able to walk around the nursing station without shortness of breath. Please see the latest A/P for further details on management course: Asthma exacerbation f/u cxray Albuterol 1.25mg/3ml q3h prn Duonebs q6h eduardo Budesonide .5mg q12h Doxycycline 100mg po 12h Heroin Abuse Ativan 1 mg ivp q4h Oxycodone ER 10mg one time dose Clonidine .1mg po tid prn Nutritional deficits Folic Acid 1mg po daily Thiamine 100mg po daily Multivitamins 1 tab po daily Prophylaxis Pepcid 20mg po daily SCDs Discharge Exam - Additional Findings Additional findings: - Constitutional Constitutional: Weight Loss. absent: Fatigue, Fever - EENT Eyes: absent: Change in Vision - Cardiovascular Cardiovascular: Dyspnea, Dyspnea on Exertion. absent: Chest Pain, Chest Pain at Rest, Edema, Palpitations, Pedal Edema - Respiratory Respiratory: Cough, Dyspnea, Wheezing - Gastrointestinal Gastrointestinal: Nausea. absent: Abdominal Pain, Constipation, Diarrhea, Vomiting - Genitourinary Genitourinary: absent: Difficulty Urinating - Integumentary Additional comments: track wright on arms and neck - Psychiatric Psychiatric: Anxiety Additional comments: tremor - Hematologic/Lymphatic Hematologic: absent: Easy Bleeding, Easy Bruising Discharge Plan - Discharge Medications Prescriptions: Albuterol HFA [Ventolin HFA 90 mcg/actuation (8 g)] 2 puff INH RQ4 PRN #1 inhaler PRN Reason: Wheezing Fluticasone/Salmeterol 250/50 [Advair Diskus 250/50] 2 puff INH QID #30 puff Montelukast Sodium [Singulair] 10 mg PO DAILY #30 tablet - Follow Up Plan Condition: FAIR Disposition: HOME/ ROUTINE Instructions: Asthma, Adult (DC), Albuterol, Fluticasone and Salmeterol, Montelukast Additional Instructions: Patient is medically stable for discharge. Patient will be given scripts for the following medications: 1. Ventolin HFA 90mcg 2 puff INH RQ4 PRN for wheezing 2. Advair Diskus 250/50 2 puff INH QID 3. Montelukast [Singulair] 10mg by mouth once a day Please continue your other normal home medications. Please follow-up with your Primary Medical Doctor, Dr Arceo. Please seek help with a detox unit. We have one here at [facility]. They will help you get situated with an inpatient program (as there were logistical issues preventing this last time - we believe another attempt will be successful ). If symptoms return go to your nearest emergency department. Referrals: Carlos Arceo MD [Staff Provider] - <Yaw Rea - Last Filed: 02/07/18 14:51> Provider - Provider Date of Admission: 02/06/18 17:23 Attending physician: Anders Perez MD Hospital Course - Lab Results Lab Results: Most Recent Lab Values WBC 7.8 K/uL (4.8-10.8) 02/07/18 08:22 RBC 5.75 Mil/uL (3.80-5.20) H 02/07/18 08:22 Hgb 14.1 g/dL (11.0-16.0) 02/07/18 08:22 Hct 41.8 % (34.0-47.0) 02/07/18 08:22 MCV 72.7 fL (81.0-99.0) L 02/07/18 08:22 MCH 24.5 pg (27.0-31.0) L 02/07/18 08:22 MCHC 33.7 g/dL (33.0-37.0) 02/07/18 08:22 RDW 22.9 % (11.5-14.5) H 02/07/18 08:22 Plt Count 239 K/uL (130-400) 02/07/18 08:22 MPV 9.1 fL (7.2-11.7) 02/07/18 08:22 Neut % (Auto) 86.5 % (50.0-75.0) H 02/07/18 08:22 Lymph % (Auto) 9.1 % (20.0-40.0) L 02/07/18 08:22 [place] % (Auto) 4.3 % (0.0-10.0) 02/07/18 08:22 Eos % (Auto) 0.0 % (0.0-4.0) 02/07/18 08:22 Baso % (Auto) 0.1 % (0.0-2.0) 02/07/18 08:22 Neut # (Auto) 6.8 K/uL (1.8-7.0) 02/07/18 08:22 Lymph # (Auto) 0.7 K/uL (1.0-4.3) L 02/07/18 08:22 [place] # (Auto) 0.3 K/uL (0.0-0.8) 02/07/18 08:22 Eos # (Auto) 0.0 K/uL (0.0-0.7) 02/07/18 08:22 Baso # (Auto) 0.0 K/uL (0.0-0.2) 02/07/18 08:22 Neutrophils % (Manual) 86 % (50-75) H 02/07/18 08:22 Band Neutrophils % 1 % (0-2) 02/07/18 08:22 Lymphocytes % (Manual) 9 % (20-40) L 02/07/18 08:22 Monocytes % (Manual) 4 % (0-10) 02/07/18 08:22 Platelet Estimate Normal (NORMAL) 02/07/18 08:22 Poikilocytosis (manual Slight 02/07/18 08:22 Anisocytosis (manual) Slight 02/07/18 08:22 Microcytosis (manual) Slight 02/07/18 08:22 Target Cells Slight 02/07/18 08:22 Tear Drop Cells Slight 02/07/18 08:22 Ovalocytes Slight 02/07/18 08:22 PT 12.3 SECONDS (9.7-12.2) H 02/06/18 16:35 INR 1.1 02/06/18 16:35 APTT 38 SECONDS (21-34) H 02/06/18 16:35 Sodium 142 mmol/L (132-148) 02/07/18 08:22 Potassium 4.2 mmol/L (3.6-5.2) 02/07/18 08:22 Chloride 101 mmol/L (98-107) 02/07/18 08:22 Carbon Dioxide 29 mmol/L (22-30) 02/07/18 08:22 Anion Gap 17 (10-20) 02/07/18 08:22 BUN 10 mg/dL (7-17) 02/07/18 08:22 Creatinine 0.5 mg/dL (0.7-1.2) L 02/07/18 08:22 Est GFR ( Amer) > 60 02/07/18 08:22 Est GFR (Non-Af Amer) > 60 02/07/18 08:22 Random Glucose 105 mg/dL (65-105) 02/07/18 08:22 Calcium 9.6 mg/dl (8.6-10.4) 02/07/18 08:22 Phosphorus 3.5 mg/dL (2.5-4.5) 02/07/18 08:22 Magnesium 1.8 mg/dL (1.6-2.3) 02/07/18 08:22 Total Bilirubin 0.5 mg/dL (0.2-1.3) 02/07/18 08:22 AST 21 U/L (14-36) 02/07/18 08:22 ALT 17 U/L (9-52) 02/07/18 08:22 Alkaline Phosphatase 108 U/L (38-126) 02/07/18 08:22 Total Protein 7.6 g/dL (6.3-8.3) 02/07/18 08:22 Albumin 4.1 g/dL (3.5-5.0) 02/07/18 08:22 Globulin 3.5 gm/dL (2.2-3.9) 02/07/18 08:22 Albumin/Globulin Ratio 1.2 (1.0-2.1) 02/07/18 08:22 Urine Color Yellow (YELLOW) 02/06/18 16:44 Urine Clarity Hazy (Clear) 02/06/18 16:44 Urine pH 5.0 (5.0-8.0) 02/06/18 16:44 Ur Specific [place] 1.018 (1.003-1.030) 02/06/18 16:44 Urine Protein 2+ mg/dL (NEGATIVE) H 02/06/18 16:44 Urine Glucose (UA) Normal mg/dL (Normal) 02/06/18 16:44 Urine Ketones Negative mg/dL (NEGATIVE) 02/06/18 16:44 Urine Blood 3+ (NEGATIVE) H 02/06/18 16:44 Urine Nitrate Negative (NEGATIVE) 02/06/18 16:44 Urine Bilirubin Negative (NEGATIVE) 02/06/18 16:44 Urine Urobilinogen Normal mg/dL (0.2-1.0) 02/06/18 16:44 Ur Leukocyte Esterase Neg [place]/uL (Negative) 02/06/18 16:44 Urine WBC (Auto) 8 /hpf (0-5) H 02/06/18 16:44 Urine RBC (Auto) 89 /hpf (0-3) H 02/06/18 16:44 Ur Squamous Epith Cells 5 /hpf (0-5) 02/06/18 16:44 Hyaline Casts 3-5 /lpf (0-2) H 02/06/18 16:44 Urine HCG, Qual Negative (NEGATIVE) 02/06/18 16:44 Attending/Attestation - Attestation I have personally seen and examined this patient.: Yes I have fully participated in the care of the patient.: Yes I have reviewed all pertinent clinical information, including history, physical exam and plan: Yes Notes (Text): 02/07/18 14:44 Medical attending: This is a 27 year old female who unfourtunately is very well known to the medical service for repeated episodes of shortnes of breath due to use of heroin, I previously remembered she was snort the drugs, however she is now using IV She was acutely short of breath when she came and by the time I saw the patient on 6T she was not acutely short of breath. I had her stand up and walk around in the hallway and to the nurses station and then back We have had several long conversations about her continued drug use I'm afraid there is not much we can do to convince the patient otherwise She did NOT want detox. So we did not consult pyschiatry She was given RX for the above medication by resident I had another conversation about the use of heroine to her. It did not look as if anything I did registered with her. Yaw Rea
[2018-02-07 11:48] VITALS: PULSE 88
[2018-02-07 19:10] LABS: BARBITURATES, UR NEGATIVE (NEGATIVE); BENZODIAZEPINES, UR NEGATIVE (NEGATIVE); OPIATES, UR POSITIVE (NEGATIVE); PHENCYCLIDINE, UR NEGATIVE (NEGATIVE)
== END 2018-02-07 13:23 | disposition home or self-care (01) | DRG 202 ==
LOC: C.ER 16:11 → C.9E 17:23 → C.6T 19:26
PROVIDERS: ADMIT Internal Medicine; ATTEND Internal Medicine
DX: J45.901 Unspecified asthma with (acute) exacerbation (principal); F11.23 Opioid dependence with withdrawal; I10 Essential (primary) hypertension; R63.4 Abnormal weight loss; Z91.14 Patient's other noncompliance with medication regimen; Z91.19 Patient's noncompliance with other medical treatment and regimen

== ENCOUNTER 2018-08-30 10:19 | Emergency (ER) | payer MEDICARE, OTHER ==
[2018-08-30 10:19] VITALS: BMI 17.9
[2018-08-30] MEDS ORDERED: Albuterol-Ipratrop 3 mg / 0.5 (3 ml) UD ONE (10:33)
[2018-08-30 10:36] VITALS: TEMP 98.6
[2018-08-30] MEDS ORDERED: Albuterol 0.083% Inhal Sol (2.5 mg/3 mL) UD INH STA (10:39)
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
[2018-08-30] MEDS ORDERED: Albuterol 0.083% Inhal Sol (2.5 mg/3 mL) UD ONE (10:51)
[2018-08-30 11:20] VITALS: O2SAT 95
[2018-08-30 11:36] VITALS: BP 102/65; PULSE 119; RESP 16
--- NOTE | 2018-08-30 12:23 | RAD ---
HISTORY: ASTHMA COMPARISON: Chest x-ray performed 02/06/18, CT chest without contrast performed 12/25/17 TECHNIQUE: Chest PA and lateral FINDINGS: LUNGS: Probable atelectasis, medial left lower lobe. Reticular nodular opacities re-identified. Increased lucencies within the upper lobes suggest emphysema. No focal consolidation. 6 mm nodular density, left upper lobe. Please note that chest x-ray has limited sensitivity for the detection of pulmonary masses. PLEURA: No significant pleural effusion identified. No definite pneumothorax . CARDIOVASCULAR: Heart size appears within normal limits. OSSEOUS STRUCTURES: Degenerative changes. Scoliosis. VISUALIZED UPPER ABDOMEN: Unremarkable. OTHER FINDINGS: None. IMPRESSION: Probable atelectasis, medial left lower lobe. Reticular nodular opacities re-identified. Increased lucencies within the upper lobes suggest emphysema. 6 mm nodular density, left upper lobe. Follow-up outpatient CT of the chest may be considered if indicated. Study marked for PA review.
== END 2018-08-30 12:54 | disposition home or self-care (01) ==
LOC: C.ER 10:19
DX: J45.901 Unspecified asthma with (acute) exacerbation (principal); F11.10 Opioid abuse, uncomplicated; I10 Essential (primary) hypertension
CPT/HCPCS: 71046; 99284; J8540

== ENCOUNTER 2018-09-03 11:02 | Emergency (ER) | payer MEDICARE, OTHER ==
[2018-09-03 11:02] VITALS: BMI 17.9
[2018-09-03 11:35] VITALS: BP 110/76; PULSE 86; RESP 14; TEMP 98; O2SAT 96
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
== END 2018-09-03 11:34 | disposition home or self-care (01) ==
LOC: C.ER 11:02
DX: F19.10 Other psychoactive substance abuse, uncomplicated (principal)

== ENCOUNTER 2019-02-13 09:29 | Inpatient (IN) | payer MEDICARE, OTHER ==
[2019-02-13 09:29] VITALS: BMI 17.9
[2019-02-13] MEDS ORDERED: Sodium Chloride 0.9% 1,000 ML IV ONE (10:18)
[2019-02-13] MEDS ORDERED: Albuterol-Ipratrop 3 mg / 0.5 (3 ml) UD INH STA (10:48)
[2019-02-13] MEDS ORDERED: Albuterol-Ipratrop 3 mg / 0.5 (3 ml) UD ONE (10:57)
[2019-02-13 11:01] LABS: BASO % 0.4 % (0.0-2.0); EOS # 0.2 K/uL (0.0-0.7); EOS % 2.3 % (0.0-4.0); HEMOGLOBIN 14.9 g/dL (11.0-16.0); LYMPH # 1.2 K/uL (1.0-4.3); LYMPH % 13.9 % (20.0-40.0); MEAN CORPUSCULAR HEMOGLOBIN 28.8 pg (27.0-31.0); MEAN CORPUSCULAR HGB CONC 34.2 g/dL (33.0-37.0); MEAN PLATELET VOLUME 9.4 fL (7.2-11.7); MONO # 0.4 K/uL (0.0-0.8); MONO % 4.8 % (0.0-10.0); NEUT # 6.9 K/uL (1.8-7.0); NEUT % 78.6 % (50.0-75.0); NRBC % 0.2 % (0.0-2.0); RBC 5.19 Mil/uL (3.80-5.20); RED CELL DISTRIBUTION WIDTH 14.6 % (11.5-14.5); WHITE BLOOD COUNT 8.7 K/uL (4.8-10.8)
[2019-02-13 11:02] LABS: URINE BACTERIA RARE (<OCC); URINE BILIRUBIN NEGATIVE (NEGATIVE); URINE BLOOD NEGATIVE (NEGATIVE); URINE CLARITY Hazy (Clear); URINE COLOR Yellow (YELLOW); URINE GLUCOSE (UA) NORMAL (Normal); URINE LEUKOCYTE ESTERASE 1+ Leu/uL (Negative); URINE PROTEIN 1+ mg/dL (NEGATIVE); URINE UROBILINOGEN NORMAL mg/dL (0.2-1.0)
[2019-02-13 11:05] LABS: MEAN CELL VOLUME 84.1 fL (81.0-99.0)
[2019-02-13 11:07] LABS: SQUAMOUS EPITHIAL 2 /hpf (0-5)
[2019-02-13 11:12] LABS: ALB/GLOB RATIO 1.3 (1.0-2.1); ALBUMIN 4.6 g/dL (3.5-5.0); ALT/SGPT 12 U/L (9-52); AST/SGOT 40 U/L (14-36); BLOOD UREA NITROGEN 12 mg/dL (7-17); CALCIUM 8.4 mg/dl (8.6-10.4); GFR NON-AFRICAN AMERICAN 58
[2019-02-13] MEDS ORDERED: cefTRIAXone IV 1 gm in Dextros 50 ML IV ONE (11:13)
[2019-02-13 11:23] LABS: BARBITURATES, UR NEGATIVE (NEGATIVE); PHENCYCLIDINE, UR NEGATIVE (NEGATIVE)
--- NOTE | 2019-02-13 11:25 | C.PDOC ---
History Of Present Illness 28 year old female presents to the ED complaining of right-sided back pain and requesting detox from heroin. Patient reports she tripped and fell last night, and since then developed back pain. She denies any extremity weakness, pare sthesias, saddle anesthesia, or bowel or bladder incontinence. She admits to using 2-3 bags of heroin per day, intranasally. Patient was seen yesterday at [facility] for huffing a dust can, and she reports they did not have detox available. Additionally patient notes she was seen at [facility] the day before that and diagnosed with pyelonephritis, but is not taking the antibiotics. Time Seen by Provider: 02/13/19 09:35 Chief Complaint (Nursing): Back Pain History Per: Patient History/Exam Limitations: no limitations Onset/Duration Of Symptoms: Days (x 2) Current Symptoms Are (Timing): Still Present Previous Symptoms: Back Pain Past Medical History Reviewed: Historical Data, Nursing Documentation, Vital Signs Vital Signs: Last Vital Signs Temp 97.5 F L 02/13/19 09:53 Pulse 91 H 02/13/19 09:53 Resp 18 02/13/19 09:53 BP 93/67 L 02/13/19 09:53 Pulse Ox 95 02/13/19 09:53 - Medical History PMH: Anxiety, Asthma Denies: Diabetes, Hepatitis, HIV, HTN, Chronic Kidney Disease, Seizures, Sexually Transmitted Disease - [facility] Procedures CONTINUOUS INVASIVE MECHANICAL VENTILATION <96 CONSEC HRS (12/16/13) DETOXIFICATION SERVICES FOR SUBSTANCE ABUSE TREATMENT (04/14/17) INDIV PSYCHOTHERAPY FOR SUBSTANCE ABUSE TREATMENT, SUPPORT (12/25/17) INDIV PSYCHOTHERAPY FOR SUBSTANCE ABUSE, COGNITIV BEHAVIORAL (12/25/17) INDIV PSYCHOTHERAPY FOR SUBSTANCE ABUSE, PSYCHOEDUCATION (12/25/17) INSERT ENDOTRACHEAL TUBE (12/16/13) INSERTION OF ENDOTRACHEAL AIRWAY INTO TRACHEA, VIA OPENING (08/29/17) MEDS MGMT FOR SUBSTANCE ABUSE TREATMENT, METHADONE MAINT (12/25/17) OTHER SKIN & SUBQ I D (06/14/13) RESPIRATORY VENTILATION, LESS THAN 24 CONSECUTIVE HOURS (08/29/17) TETANUS TOXOID ADMINIST (06/14/13) Family History: States: Unknown Family Hx - Social History Hx Tobacco Use: (UNKNOWN) Hx Alcohol Use: No Hx Substance Use: Yes (heroin 3x/day,last use 3 days ago) - Immunization History Hx Tetanus Toxoid Vaccination: No Hx Influenza Vaccination: Yes Hx Pneumococcal Vaccination: No Review Of Systems Except As Marked, All Systems Reviewed And Found Negative. Constitutional: Negative for: Fever Eyes: Negative for: Vision Change Cardiovascular: Negative for: Chest Pain Respiratory: Negative for: Shortness of Breath Gastrointestinal: Negative for: Nausea, Vomiting, Abdominal Pain, Diarrhea Genitourinary: Positive for: Dysuria. Negative for: Incontinence, Hematuria Musculoskeletal: Positive for: Back Pain Neurological: Negative for: Weakness, Numbness, Dizziness Physical Exam - Physical Exam Appears: Non-toxic, No Acute Distress, Unkempt Skin: Warm, Dry, No Rash Head: Atraumatic, Normacephalic Eye(s): bilateral: Normal Inspection Oral Mucosa: Moist Neck: Normal ROM Chest: Symmetrical Cardiovascular: Rhythm Regular, No Murmur Respiratory: No Accessory Muscle Use, No Rhonchi, Wheezing (Expiratory wheezing bilaterally), Other (No respiratory distress) Gastrointestinal/Abdominal: Soft, No Tenderness, No Distention Back: CVA Tenderness (Right CVAT), Paraspinal Tenderness (Right paralumbar tenderness), Other (No ecchymosis or skin changes) Extremity: Bilateral: Atraumatic, Normal Color And Temperature Neurological/Psych: Oriented x3, Normal Speech, Normal Motor, Normal Sensation Gait: Steady ED Course And Treatment - Laboratory Results Result Diagrams: 02/13/19 10:50 02/13/19 10:50 Lab Results: Total Bilirubin 0.5 mg/dL (0.2-1.3) 02/13/19 10:50 AST 40 U/L (14-36) H D 02/13/19 10:50 ALT 12 U/L (9-52) 02/13/19 10:50 Alkaline Phosphatase 93 U/L (38-126) 02/13/19 10:50 Total Protein 8.3 g/dL (6.3-8.3) 02/13/19 10:50 Albumin 4.6 g/dL (3.5-5.0) 02/13/19 10:50 Globulin 3.6 gm/dL (2.2-3.9) 02/13/19 10:50 Albumin/Globulin Ratio 1.3 (1.0-2.1) 02/13/19 10:50 Urine Color Yellow (YELLOW) 02/13/19 10:50 Urine Clarity Hazy (Clear) 02/13/19 10:50 Urine pH 5.0 (5.0-8.0) 02/13/19 10:50 Ur Specific [place] 1.015 (1.003-1.030) 02/13/19 10:50 Urine Protein 1+ mg/dL (NEGATIVE) H 02/13/19 10:50 Urine Glucose (UA) Normal mg/dL (Normal) 02/13/19 10:50 Urine Ketones Negative mg/dL (NEGATIVE) 02/13/19 10:50 Urine Blood Negative (NEGATIVE) 02/13/19 10:50 Urine Nitrate Negative (NEGATIVE) 02/13/19 10:50 Urine Bilirubin Negative (NEGATIVE) 02/13/19 10:50 Urine Urobilinogen Normal mg/dL (0.2-1.0) 02/13/19 10:50 Ur Leukocyte Esterase 1+ Yamila/uL (Negative) H 02/13/19 10:50 Urine WBC (Auto) 18 /hpf (0-5) H 02/13/19 10:50 Urine RBC (Auto) 5 /hpf (0-3) H 02/13/19 10:50 Ur Squamous Epith Cells 2 /hpf (0-5) 02/13/19 10:50 Urine Bacteria Rare (<OCC) 02/13/19 10:50 Hyaline Casts 3-5 /lpf (0-2) H 02/13/19 10:50 O2 Sat by Pulse Oximetry: 95 (RA) Pulse Ox Interpretation: Normal Medical Decision Making Medical Decision Making: Impression: Back pain, Detox request, Pyelonephritis Plan: - Blood work - Urinalysis - LS Spine X-ray - NS IV fluids - Duoneb x 1 - 1 gm IV Rocephin Labs reviewed no leukocytosis or renail impairment. Xray shows no calculus, frature or listhesis. Contact joinery factory worker for evaluation. Patient has UTI and can be treated with oral antibiotic Bactrim twice daily for 5 days. Per PES the patient was accepted to detox by Dr Lord Disposition - Disposition Disposition: HOSPITALIZED Disposition Time: 13:38 Condition: STABLE - POA Present On Arrival: None - Clinical Impression Clinical Impression: Urinary tract infection, Opiate dependence, continuous, Low back pain - PA / [employer] / Resident Statement MD/DO has reviewed & agrees with the documentation as recorded. - Scribe Statement The provider has reviewed the documentation as recorded by the Scribe Shania Hernandez All medical record entries made by the Scribe were at my direction and personally dictated by me. I have reviewed the chart and agree that the record accurately reflects my personal performance of the history, physical exam, medical decision making, and the department course for this patient. I have also personally directed, reviewed, and agree with the discharge instructions and disposition. Decision To Admit - Pt Status Changed To: Hospital Disposition Of: Inpatient - Admit Certification Admit to Inpatient:: After my assessment, the patient will require hospitalization for at least two midnights. This is because of the severity of symptoms shown, intensity of services needed, and/or the medical risk in this patient being treated as an outpatient. - InPatient: Physician Admission Certification:: Patient needs detox and treatment for UTI - . Bed Request Type: Detox Admitting Physician: Holli Lord Patient Diagnosis: Urinary tract infection, Opiate dependence, continuous, Low back pain
[2019-02-13 11:39] LABS: BENZODIAZEPINES, UR POSITIVE (NEGATIVE); OPIATES, UR POSITIVE (NEGATIVE)
[2019-02-13] MEDS ORDERED: Oxycodone/Acetaminophen 5/325 mg Tab PO STA (13:45)
--- NOTE | 2019-02-13 14:03 | RAD ---
Date of service: 02/13/2019 PROCEDURE: Radiographs of the Lumbar Spine. HISTORY: low back pain rt side s.p fall COMPARISON: No prior. TECHNIQUE: Three views obtained. FINDINGS: BONES: There is normal alignment of the lumbar vertebral bodies. There is normal lumbar lordosis. There is no acute fracture, spondylolysis or spondylolisthesis. Bone mineralization is normal. DISC SPACES: The disc heights are maintained. OTHER FINDINGS: No pathologic soft tissue calcifications. Both sacroiliac joints are normal. IMPRESSION: No acute fracture, spondylolysis or spondylolisthesis.
--- NOTE | 2019-02-13 14:09 | PCM.BM ---
<Willy Avendano - Last Filed: 02/13/19 14:09> Treatment Plan Problems - Problems identified on initial assessmt denial Date Initiated: 02/13/19 Time Initiated: 14:07 Assessment reference: NA Status: Active defensive coping Date Initiated: 02/13/19 Time Initiated: 14:08 Assessment reference: NA Status: Active chronic low self esteem Date Initiated: 02/13/19 Time Initiated: 14:09 Assessment reference: NA Status: Active Treatment assets and liabiliti Patient Assests: cooperative, ADL independent, negotiates basic needs Patient Liabilities: substance abuse, medical problems - Milieu Protocol Maintain good personal hygiene: daily Encourage regular showers, daily Remind patient to perform daily oral care, daily Assist patient to perform ADL's Conduct patient checks and document Observation sheet: Q15 minutes Maintain personal safety: every shift Educate patient to report safety concerns to staff, every shift Monitor environment for contraband/sharps Medication safety: Monitor for expected outcome, potential side effects: every shift, Assess barriers to learning: every shift, Assess readiness for medication education: every shift <Holli Lord - Last Filed: 02/13/19 22:43> - Diagnosis (1) Opiate dependence, continuous Status: Acute Interventions: 02/13/19 22:43 * Assess 7x/week regarding severity of withdrawal * Educate regarding risks, benefits, side effects and alternatives of medications * Use Motivational Interviewing for abstinence * Use CBT for relapse prevention * Medication management for withdrawal symptoms * Encourage medication assisted treatment * (2) Benzodiazepine abuse Status: Acute Interventions: 02/13/19 22:44 * Assess 7x/week regarding severity of withdrawal * Educate regarding risks, benefits, side effects and alternatives of medications * Use Motivational Interviewing for abstinence * Use CBT for relapse prevention * Medication management for withdrawal symptoms * Encourage medication assisted treatment * <Twyla Graham - Last Filed: 02/16/19 14:55> Family Contact Family involvement: Famliy/SO not involved - Goals for Treatment Patient goals for treatment: Complete detox and apply for short-term residential program. Discharge/Continuing Care - Education Needs Education Needs: Patient Medication, Patient Diagnosis/Disease Process, Patient Coping Skills, Patient Anger Management skills, Patient Placement options, Patient Community resources - Discharge Discharge Criteria: No longer exhibiting s/s of withdrawal, Reduction of target symptoms Discharge to:: Substance Abuse Rehab - Treatment Team Participation Patient/Family/SO Statement: 02/16/19 14:54 "I wanna get into [facility]..." Discussed with Family/SO: No Was Patient/Family/SO present at Treatment Team Meeting: Yes
[2019-02-13] MEDS ORDERED: Aluminum Hydroxide/Magnesium Hydroxide Susp (30 mL) PO PRN (15:49)
[2019-02-13] MEDS ORDERED: Albuterol HFA 90 mcg/actuation (8 g) IH PRN (21:19)
--- NOTE | 2019-02-13 22:43 | PCM.PSYCH ---
Initial Psychiatric Evaluation - Initial Psychiatric Evaluation Type of Admission: Voluntary Legal Status: Capacity Chief Complaint (in patient's own words): "I need detox" History of Present Illness and Precipitating Events: 28 y/o unemployed single female with 2 children. Lives at home with boyfriend. Her two (age 12 and 7) children are in their fathers' custody. Pt states that she has been using 10-15 bags of heroin (IV) per day for the past 7 years. 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 She has been admitted for detox 3 times. States that she has never done rehab. The longest she has been able to remain sober was 40 days. States that she relapsed because she " wanted to use again." Reports night sweats, cramps, anxiety and irritability and chills. COWS>10 Pt would like to detox so that she "can get a job". The pt also uses Xanax but minimizes and hides the amount. She had ODs n the past and possible seizures. Psych History: Depression and Anxiety. She has attempted suicide before. She has borderline features and impulsive behavior. Family HX Psych: Denies Trauma Hx: Denies PMHX: Severe COPD for which she had been admitted several times and AMA'ed b/c of her substance abuse. Her heroin use negatively affects her medical condition Current Medications: Active Medications Generic Name Dose Route Start Last Admin Trade Name Freq PRN Reason Stop Dose Admin Al Hydrox/Mg Hydrox/Simethicone 30 ml 02/13/19 15:49 Maalox 30 Ml PO TID PRN Indigestion / Heartburn Albuterol 1 puff 02/13/19 21:19 Ventolin Hfa 90 Mcg/Actuation (8 G) IH RQ4 PRN Shortness of Breath Ciprofloxacin 500 mg 02/13/19 18:00 02/13/19 17:39 Cipro PO 500 mg BID ANDERSON Administration Protocol Clonidine HCl 0.1 mg 02/13/19 15:49 Catapres PO Q4 PRN COWS Score More or Equal to 5 Gabapentin 300 mg 02/13/19 18:00 02/13/19 17:20 Neurontin PO 300 mg BID ANDERSON Administration Hydroxyzine HCl 50 mg 02/13/19 15:50 02/13/19 17:21 Atarax PO 50 mg Q6H PRN Administration Anxiety Ibuprofen 600 mg 02/13/19 15:49 Motrin Tab PO Q6 PRN Pain, moderate (4-7) Loperamide HCl 2 mg 02/13/19 15:49 02/13/19 16:35 Imodium PO 2 mg Q8 PRN Administration Diarrhea Methadone HCl 0 mg 02/14/19 10:00 Methadone PO 02/18/19 09:59 Q24H ANDERSON Taper Mirtazapine 15 mg 02/13/19 18:51 Remeron PO HS PRN Sleep Ondansetron HCl 4 mg 02/13/19 15:49 Zofran Tab PO Q8 PRN Nausea/Vomiting Trazodone HCl 100 mg 02/13/19 15:50 Desyrel PO HS PRN Insomnia Past Psychiatric History - Past Psychiatric History Previous Treatment History: Inpatient Pertinent Medical Hx (Current Medical&Sleep Prob, Allergies): Allergies Allergy/AdvReac Type Severity Reaction Status Date / Time shrimp Allergy Severe ANGIOEDEMA Verified 02/13/19 10:10 buprenorphine [From Suboxone] AdvReac Severe DIARRHEA Verified 02/13/19 10:10 naloxone [From Suboxone] AdvReac Severe DIARRHEA Verified 02/13/19 10:10 Albuterol HFA [Ventolin HFA 90 mcg/actuation (8 g)] 1 puff IH Q4 #1 inhaler 08/30/18 Review of Systems - Psychiatric Psychiatric: Abnormal Sleep Pattern, Anhedonia, Anxiety, Change in Appetite, Depression, Difficulty Concentrating, Irritability. absent: Hallucinations, Homicidal Ideation, Suicidal Ideation Mental Status Examination - Personal Presentation Personal Presentation: Looks stated age - Affect Affect: Constricted - Motor Activity Motor Activity: Calm - Reliability in Providing Information Reliability in Providing Information: Good - Speech Speech: Organized - Mood Mood: Depressed, Anxious - Formal Thought Process Formal Thought Process: No Impairment - Cognitive Functions Orientation: Person, Place, Situation, Time Sensorium: Alert Attention/Concentration: Attentive Abstract Thinking: [place] Estimate of Intelligence: Average Judgement: Intact, as evidence by: Insight regarding need for hospitalization Memory: Recent intact, as evidence by: Ability to recall events of the day, Remote intact, as evidenced by: Abilit to recall sig. 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 Attend groups and activities Supportive therapy and psychoeducation [place] for abstinence CBT for relapse prevention Encourage MAT Refer to rehab or IOP, and self-help groups Teach healthy lifestyle methods, i.e. diet, exercise, meditation Smoking cessation with [place] Nicotine patch if needed 34 min Projected ELOS: 4-5 days Prognosis: good w treatment - Smoking Cessation Smoking Cessation Initiated: Yes
[2019-02-14] MEDS ORDERED: Petrolatum Oint Foilpak (5 gm) TOP PRN (01:35)
--- NOTE | 2019-02-15 10:50 | RAD ---
Date of service: 02/15/2019 HISTORY: Required for rehab placement COMPARISON: Comparison is made with 08/30/2018 TECHNIQUE: Chest PA and lateral views FINDINGS: LUNGS: Hyperinflation of the lungs is again noted. Otherwise no significant interval changes in the lungs noted since the prior study. PLEURA: No significant pleural effusion identified. No pneumothorax apparent. CARDIOVASCULAR: No aortic atherosclerotic calcification present. Normal cardiac size. No pulmonary vascular congestion. OSSEOUS STRUCTURES: No significant abnormalities. VISUALIZED UPPER ABDOMEN: Normal. OTHER FINDINGS: None. IMPRESSION: No acute pulmonary disease.
--- NOTE | 2019-02-15 16:29 | CON ---
DATE: 02/14/2019 HISTORY OF PRESENT ILLNESS: The patient was admitted to the hospital complaining of right sided back pain and requesting detox. Patient came to the ER, advised admission. PHYSICAL EXAMINATION: GENERAL: The patient is awake, alert, oriented. VITAL SIGNS: Temperature 98, pulse 90. HEENT: Within normal limits. NECK: Supple. CHEST: Symmetrical. HEART: Regular. ABDOMEN: Soft. EXTREMITIES: No edema. ASSESSMENT AND PLAN: The patient suffers from UTI. Patient placed on bedrest. Antibiotics were given. . Cathleen Wilson MD
--- NOTE | 2019-02-16 06:06 | PCM.PYCHPN ---
Psychiatric Progress Note - Psychiatric Progress Note Patient seen today, length of contact: 15MIN Patient Chief Complaint: I WANT TO GO TO A METHADONE PROGRAM I CAN'T STOP ITCHING Problems Identified/Issues Discussed: PT SEEN AND EXAMINED DISCUSSED WITH STAFF DISCUSSED WITH PT HOW TO LEARN COPING SKILLS TO STOP XANAX USE PT HAS PRURITUS PT HAS UTI AND IS ON CIPRO MOST LIKELY AN ALLERGIC REACTION WILL STOP CIPRO Medical Problems: PRUITUS Diagnostic Results: REVIEWED DSM 5 Symptoms Update: IRRITABILITY Medication Change: Yes Medical Record Reviewed: Yes Mental Status Examination - Cognitive Function Orientation: Person, Place, Situation, Time Attention: WNL Concentration: WNL Association: WNL Fund of Knowledge: WNL - Mood Mood: Depressed, Anxious - Affect Affect: Constricted - Speech Speech: Appropriate - Formal Thought Process Formal Thought Process: No Impairment - Suicidal Ideation Suicidal Ideation: No - Homicidal Ideation Homicidal Ideation: No Goal/Treatment Plan - Goal/Treatment Plan Need for Continued Stay: Severe depression anxiety, Discharge may exacerbated symptoms Progress Toward Problem(s) and Goals/Treatment Plan: OPIOID WITHDRAWAL METHADONE OPIOID USE DISORDER [place] CBT GROUPS SUPPORTIVE PSYCHOTHERAPY SEDATIVE HYPNOTIC ANXIOLYTIC WITHDRAWAL [place] CBT GROUPS SUPPORTIVE PSYCHOTHERAPY Estimated Date of D/C: 02/16/19 - Smoking Cessation Smoking Cessation Initiated: No
--- NOTE | 2019-02-16 06:12 | PCM.PYCHPN ---
Psychiatric Progress Note - Psychiatric Progress Note Patient seen today, length of contact: 15MIN Patient Chief Complaint: I DON'T FEEL WELL Problems Identified/Issues Discussed: PT SEEN AND EXAMINED DISCUSSED WITH STAFF DISCUSSED WITH PT AFTERCARE POSSIBILITIES Medical Problems: NOTHING ACUTE Mental Status Examination - Cognitive Function Orientation: Person, Place, Situation, Time - Mood Mood: Depressed, Anxious - Affect Affect: Constricted - Formal Thought Process Formal Thought Process: No Impairment Goal/Treatment Plan - Goal/Treatment Plan Need for Continued Stay: Discharge may exacerbated symptoms Progress Toward Problem(s) and Goals/Treatment Plan: OPIOID WITHDRAWAL METHADONE OPIOID USE DISORDER [place] CBT GROUPS SUPPORTIVE PSYCHOTHERAPY SEDATIVE-HYPNOTIC ANXIOLYTIC WITHDRAWAL LIBRIUM SEDATIVE-HYPNOTIC USE DISORDER [place] CBT GROUPS SUPPORTIVE PSYCHOTHERAPY Estimated Date of D/C: 02/16/19 - Smoking Cessation Smoking Cessation Initiated: No
--- NOTE | 2019-02-16 12:50 | PCM.PYCHPN ---
Psychiatric Progress Note - Psychiatric Progress Note Patient seen today, length of contact: 16 min Patient Chief Complaint: "I need detox" Medication Change: Yes Medical Record Reviewed: Yes Mental Status Examination - Cognitive Function Orientation: Person, Place, Situation, Time Attention: WNL Concentration: WNL Association: WNL Fund of Knowledge: WNL - Mood Mood: Depressed, Anxious - Affect Affect: Constricted - Speech Speech: Appropriate - Formal Thought Process Formal Thought Process: No Impairment - Suicidal Ideation Suicidal Ideation: No - Homicidal Ideation Homicidal Ideation: No Goal/Treatment Plan - Goal/Treatment Plan Need for Continued Stay: Severe depression anxiety, Discharge may exacerbated symptoms Progress Toward Problem(s) and Goals/Treatment Plan: Taper with methadone Monitor benzo wdw Remeron for depression Gabapentin for augmentation and benzo wdw As needed medications All risks, benefits and alternatives of the meds discussed, and the pt agreed and understood. Attend groups and activities Supportive therapy and psychoeducation [place] for abstinence CBT for relapse prevention Encourage MAT Refer to rehab or IOP, and self-help groups Teach healthy lifestyle methods, i.e. diet, exercise, meditation Smoking cessation with [place] Nicotine patch if needed 34 min Estimated Date of D/C: 02/16/19
[2019-02-17 13:50] VITALS: RESP 18
[2019-02-17 20:02] VITALS: O2SAT 95
--- NOTE | 2019-02-18 09:01 | PCM.PYCHDC ---
Mental Status Examination - Mental Status Examination Orientation: Person, Place, Situation, Time Memory: Intact Mood: Anxious Affect: Constricted Speech: Appropriate Attention: WNL Concentration: WNL Association: WNL Fund of Knowledge: WNL Formal Thought Process: No Impairment Suicidal Ideation: No Current Homicidal Ideation?: No Discharge Summary - Discharge Note Reason for Hospitalization: Opioid detox Benzodiazepine detox Consultations:: List each consultation separately and include: 1. Reason for request. 2. Findings. 3. Follow-up Summary of Hospital Course include:: 1. Description of specific treatment plan utilized for patients during their course of treatmen. 2. Summarize the time- course for resolution of acute symptoms and/or regressed behaviors. 3. Describe issues identified and worked on during hospitalization. 4. Describe medication utilized. 5. Describe medical problems identified and treated. 6. Reassessment of suicide risk Summary of Hospital Course: On admission: 28 y/o unemployed single female with 2 children. Lives at home with boyfriend. Her two (age 12 and 7) children are in their fathers' custody. Pt states that she has been using 10-15 bags of heroin (IV) per day for the past 7 years. 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 She has been admitted for detox 3 times. States that she has never done rehab. The longest she has been able to remain sober was 40 days. States that she relapsed because she " wanted to use again." Reports night sweats, cramps, anxiety and irritability and chills. COWS>10 Pt would like to detox so that she "can get a job". The pt also uses Xanax but minimizes and hides the amount. She had ODs n the past and possible seizures. Psych History: Depression and Anxiety. She has attempted suicide before. She has borderline features and impulsive behavior. Family HX Psych: Denies Trauma Hx: Denies PMHX: Severe COPD for which she had been admitted several times and AMA'ed b/c of her substance abuse. Her heroin use negatively affects her medical condition The pt was admitted and started on treatment with psychotherapy, support, psychoeducation and medications. [place] and CBT used. The pt attended groups and activities, as well as milieu therapy. All the risks and benefits of medications are discussed and the patient understood and agreed. The pt improved with the treatments provided. After care discussed with the patient. She will go to [facility]. 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 Follow after care plan as discussed. Use relapse prevention skills Return to ER or call 911 if suicidal, homicidal or symptoms relapse. Stay away from stress, alcohol and drugs. See primary doctor regularly and get labs. Prescriptions/Medication Reconciliation: Gabapentin [Neurontin] 300 mg PO TID #90 cap Mirtazapine [Remeron] 15 mg PO HS PRN #30 tab PRN Reason: Sleep traZODone [Desyrel] 100 mg PO HS PRN #30 tab PRN Reason: Insomnia
[2019-02-18 09:51] VITALS: BP 111/71; PULSE 96; TEMP 97.7
== END 2019-02-18 11:00 | disposition home or self-care (01) | DRG 895 ==
LOC: C.ER 09:29 → C.7D 13:35
PROVIDERS: ADMIT Psychiatry & Neurology Psychiatry; ATTEND Psychiatry & Neurology Psychiatry
PROC: HZ2ZZZZ Detoxification Services for Substance Abuse Treatment (ICD-10-PCS; principal; 2019-02-13)
PROC: HZ46ZZZ Group Counseling for Substance Abuse Treatment, Psychoeducation (ICD-10-PCS; 2019-02-13)
PROC: GZ3ZZZZ Medication Management (ICD-10-PCS; 2019-02-13)
PROC: HZ59ZZZ Individual Psychotherapy for Substance Abuse Treatment, Supportive (ICD-10-PCS; 2019-02-13)
DX: F11.23 Opioid dependence with withdrawal (principal); F13.239 Sedative, hypnotic or anxiolytic dependence with withdrawal, unspecified; F32.9 Major depressive disorder, single episode, unspecified; F41.1 Generalized anxiety disorder; F60.3 Borderline personality disorder; N12 Tubulo-interstitial nephritis, not specified as acute or chronic; J44.9 Chronic obstructive pulmonary disease, unspecified; L29.9 Pruritus, unspecified; T36.8X5A Adverse effect of other systemic antibiotics, initial encounter; M54.9 Dorsalgia, unspecified; W01.0XXA Fall on same level from slipping, tripping and stumbling without subsequent striking against object, initial encounter